=== PATIENT | female | born 1930 | race Caucasian/White ===

== ENCOUNTER 2016-03-06 16:54 | Inpatient (IN) ==
[2016-03-06] MEDS ORDERED: PANTOPRAZOLE 40 MG VIAL IV STA (19:23)
[2016-03-06] MEDS ORDERED: SODIUM CHLORIDE 0.9% 500 ML IV STA (19:23)
[2016-03-06] MEDS ORDERED: ALUM/MAG/SIMETH/LIDO VISC 1:1 30 ML BOTTLE PO STA (19:23)
[2016-03-06 19:32] LABS: Basophils # 0.1 10*3/uL (0.0-0.2); Basophils % 0.4 % (0.0-0.8); Eosinophils # 0.1 10*3/uL (0.0-0.87); Eosinophils % 0.8 % (0.00-10.9); Hematocrit 43.4 VOL% (35.7-47.0); Hemoglobin 13.7 GM/DL (12.0-16.0); Immature Granulocytes % 0.5 %; Immature Granulocytes Absolute 0.07 #; Lymphocytes # 2.7 10*3/uL (1.4-4.0); Mean Corpuscular HGB Conc 31.6 GM/DL (32-36); Mean Corpuscular Hemoglobin 27 PG (27-34); Mean Corpuscular Volume 86.8 FL (87-102); Mean Platelet Volume 10.1 FL (9.6-12.0); Monocytes # 0.9 10*3/uL (0.11-0.8); Monocytes % 6.1 % (1.7-12.7); Neutrophils # 10.4 10*3/uL (1.4-7.4); Neutrophils % 73.2 % (38.7-73.9); Platelet Count 198 10*3/uL (130-400); White Blood Count 14.2 10*3/uL (4.5-13.71)
[2016-03-06] MEDS ORDERED: ALUM/MAG/SIMETH/LIDO VISC 1:1 30 ML BOTTLE PO ONE (19:37)
[2016-03-06] MEDS ORDERED: PANTOPRAZOLE 40 MG VIAL IV ONE (19:37)
--- NOTE | 2016-03-06 19:45 | Emergency Department Note ---
Arrival - Arrival Chief Complaint: Abdominal / Flank Pain Stated Complaint: CHEST PAIN/BOTH SIDES ED Nursing Triage Note: PT C/O EPIGASTRIC PAIN THAT RADIATES ACROSS HER ABD AND BACK, ONSET 1030 THIS AM. DENIES N/V. DESCRIBES PAIN "JUST THERE AND CONSTANT " Mode of Arrival: Wheelchair Limitations: No Limitations Source: Patient Time Seen by Provider: 03/06/16 19:16 - History of Present Illness HPI Narrative: The patient complains of abdominal pain which started this morning. She cannot really describe the quality. She states that the location initially was epigastric, left upper quadrant and right upper quadrant, however, it is now spread over her entire abdomen and also radiates to the back. She describes it as constant and notes no exacerbating or relieving factors. She has had no nausea, vomiting or diarrhea. She has not had similar symptoms in the past. She does have a history of GERD and frequent urinary tract infections. Her last bowel movement was last night and all of her bowel movements have been normal. She denies any fever, cough or other recent illness. Allergies/Adverse Reactions: Allergies Allergy/AdvReac Type Severity Reaction Status Date / Time codeine Allergy ITCHING Verified 03/06/16 17:12 Sulfa (Sulfonamide Allergy Unknown/Unable Verified 03/06/16 17:12 Antibiotics) to obtain Home Medications: Home Medications Medication Instructions Recorded Confirmed Type Amitriptyline [Elavil] 50 mg PO BEDTIME 03/06/16 History Amoxicillin Cap/Tab 500 mg PO TID 03/06/16 History Baclofen [Baclofen] 10 mg PO BEDTIME 03/06/16 History Gabapentin Cap/Tab [Neurontin 100 mg PO BID 03/06/16 History Cap/Tab] Lisinopril [Lisinopril] 5 mg PO DAILY 03/06/16 History Omeprazole [Omeprazole] 20 mg PO BID 03/06/16 History Oxycodone HCl [Oxycodone HCl] 10 mg PO Q6-8H 03/06/16 History Sertraline HCl [Sertraline HCl] 100 mg PO DAILY 03/06/16 History Review of System - Review of System 12 point system: reviewed and no additional remarkable complaints except as stated - Review of System Constitutional: Absent: fever Head/Ears/Nose/Throat: Absent: nasal drainage Respiratory: Absent: cough Cardiovascular: Absent: chest pain Gastrointestinal: Present: abdominal pain. Absent: nausea, vomiting, diarrhea, constipation, hematemesis, melena, hematochezia Genitourinary female: Absent: dysuria, frequency Medical,Surgical,& Family Hx - Medical History Cardio: History of: Hypertension Psychological: History of: Anxiety Disorders Genitourinary: History of: Recurring Urinary Tract Infections Musculoskeletal: History of: Musculoskeletal Problems (ARTHRITIS) - Surgical History Abdominal Surgeries: Surgical HX of: Abdominal Surgery (bladder tack), Cholecystectomy Reproductive Surgeries: Surgical HX of;: Hysterectomy - Family History Family History: noncontributory - Social History Smoking Status: Never smoker Frequency of Alcohol Use: None Type of Drug Use: None Exam Physical Examination: GENERAL: Alert. No acute distress. HEENT: Normocephalic and atraumatic. There is no nasal drainage. No pharyngeal erythema or exudate. NECK: Normal inspection. Supple. No lymphadenopathy or meningismus. LUNGS: No respiratory distress. Clear to auscultation bilaterally, no wheezes, rales or rhonchi. HEART: Regular rate and rhythm. ABDOMEN: Soft, nondistended with normal bowel sounds. Mild diffuse tenderness without guarding or rebound. BACK: Normal inspection. SKIN: Color normal. Warm and dry. EXTREMITIES: Nontender. Normal range of motion. No pedal edema. NEUROLOGICAL/PSYCHIATRIC: Alert and oriented 3 with normal mood and affect. Cranial nerves normal. No motor or sensory deficit. Vital Signs: Vital Signs Temperature 98.4 F 03/06/16 17:06 Pulse Rate 85 03/06/16 17:06 Respiratory Rate 16 03/06/16 17:06 Blood Pressure 130/73 03/06/16 17:06 O2 Sat by Pulse Oximetry 94 L 03/06/16 17:06 Course - Reevaluation(s) Reevaluation #1: Patient's vitals have remained stable here in the ER. She continues to have some abdominal pain despite morphine and Dilaudid. I will give her some more pain medication. Given her age and the level/progression of her pain, I think she warrants admission for observation. I have discussed the patient with Dr. Mercado and will admit to him for IV antibiotics, fluids and pain control. Time: 23:26 Results - Labs CBC & BMP: 03/06/16 19:00 03/06/16 19:00 Lab Results: I have reviewed the patients labs - Impressions CT of the abdomen shows a 5.35 centimeter collection of fluid, Advair, debris and contrast narrative the duodenum. This could represent duodenal diverticulum versus an abscess. Disposition Clinical Impression: Abdominal pain Case discussed with: patient, patient's family Disposition: Still a Patient Condition: Stable Time of Disposition: 23:26
[2016-03-06 19:47] LABS: Alanine Aminotransferase 17 U/L (13-56); Albumin 3.2 G/DL (3.4-5.0); Alkaline Phosphatase 91 U/L (45-117); Amylase 17 U/L (25-115); Aspartate Amino Transferase 19 U/L (0-37); Bilirubin,Total < 0.39 MG/DL (0.2-1.0); Blood Urea Nitrogen 11 MG/DL (7-18); Calcium 8.4 MG/DL (8.5-10.1); Glucose 137 MG/DL (74-106); Osmolality,Calculated 281.3 MOS/KG (273-304); Potassium 4.2 MMOL/L (3.5-5.1); Sodium 141 MMOL/L (136-145); Total Protein 6.9 G/DL (6.4-8.3)
--- NOTE | 2016-03-06 19:50 | XRay Report ---
Exam: XR abdomen 1V Date: 03/06/2016 7:24 PM Indication: Abdominal pain Comparison: None Technical:Supine abdomen Findings: Mid abdominal surgical clips are present and previous cholecystectomy clips are present. Vascular plaque present in the aorta. Large amount stool scattered within the colon. The liver spleen and renal shadows are obscured prior vertebral plasty at L3. No evidence of pneumoperitoneum on the supine image. Impression: 1. Previous midabdominal surgical changes 2. Prior vertebroplasty 3. Constipation 4. 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 Modesto Chaudhary
[2016-03-06 19:56] LABS: Amorphous Crystals,Urine Occasional /HPF (Few); Apearance,Urine CLOUDY (Clear); Bilirubin,Urine Negative (Negative); Blood, Urine Negative (Negative); Glucose,Urine (UA) Negative (Negative); Ketones,Urine Negative (Negative); Mucus,Urine Occasional /LPF (Occasional); Nitrite,Urine Negative (Negative); Protein,Urine 30 MG/DL; RBC,Urine 1 /HPF (0-4); Squamous Epithelial Cell,Urine Occasional /HPF (0-10); Urine Color Yellow (Yellow); Urine Specific Gravity 1.018 (1.001-1.035); Urine Urobilinogen < 2.0 EU/DL (0.2-1.0); WBC,Urine 10 /HPF (0-6)
[2016-03-06] MEDS ORDERED: ONDANSETRON 4 MG/2 ML VIAL ONE (20:15)
[2016-03-06] MEDS ORDERED: MORPHINE 2 MG/1 ML SYRINGE ONE ×2 (20:16→20:58)
[2016-03-06] MEDS ORDERED: MORPHINE 2 MG/1 ML SYRINGE IV STA ×2 (20:20→20:55)
[2016-03-06] MEDS ORDERED: ONDANSETRON 4 MG/2 ML VIAL IV STA (20:20)
[2016-03-06] MEDS ORDERED: HYDROmorphone 2 MG/1 ML VIAL ONE (21:29)
[2016-03-06] MEDS ORDERED: HYDROmorphone 2 MG/1 ML VIAL IV STA ×2 (21:30→23:27)
--- NOTE | 2016-03-06 22:44 | CT Report ---
Exam: CT abdomen pelvis w con Date: 03/06/2016 8:27 PM Comparison: 08/20/2015 Indication: Abdominal pain Total DLP: 858.7 mGy*cm Technical: Oral contrast was administered. Images were obtained from the lung bases to the iliac crest continuation through the pelvis with 100 cc of Omnipaque 350 with axial sagittal coronal imaging available for review. Dose reduction was performed with decreasing kv and mA and automated exposure Findings: Lung bases:No obvious infiltrate or effusion present. Liver and Spleen: On fat infiltration of the liver is present. The hepatic and portal veins are patent. The spleen is unremarkable. Gallbladder and Pancreas: Previous cholecystectomy clips suspected. The pancreas is mostly atrophic Adrenals: Unremarkable Kidneys: Cystic changes are present on the kidneys bilaterally. Normal excretion present. Stomach:Distended with contrast and air fluid and debris small filling defect in the posterior medial stomach Retroperitoneum: No enlarged lymph nodes. Aorta and IVC: Vascular plaque in the aorta iliac vessels. IVC is patent. 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 Bowel and Mesentery: Large amount of stool and debris present in the colon. Adjacent to the third and fourth form of the duodenum there is a collection measuring 5.5 cm containing air fluid and debris and what appears be some minimal contrast measuring up to 2.9 cm in height. Anterior posteriorly this area measures approximately 3.65 cm. Diverticulosis change present in the sigmoid colon and descending colonic segment. Injection granulomas present gluteal regions. Pelvis: Bladder: Incompletely distended with contrast on delayed images. Fluid: No free fluid identified. Lymph nodes: No enlarged lymph nodes.15.8 mm subcutaneous nodule in the left the inguinal region Pelvic organs: Surgically absent uterus and ovaries Osseous structures: Previous vertebral plasty suspected at L3 with mild levoscoliotic curve in the lumbosacral spine. Old compression deformity at T12 Impression: 1. Diverticulosis without obvious diverticulitis 2. Small collection with associated with the duodenum that probably represents a duodenal diverticulum measuring up up to 5.35 cm containing air fluid and contrast debris. Small abscess collection cannot be totally excluded 3. Fatty infiltration of the pancreas 4. Previous vertebral plasty and compression deformities in the thoracic lumbar spine 5. Prior cholecystectomy and hysterectomy. PROCEDURE INTERPRETED AT [facility] DEPARTMENT OF RADIOLOGY Final Report Signed by: Dr. Modesto Chaudhary
--- NOTE | 2016-03-07 00:22 | General Surg History&Physical ---
Assessment and Plan - Time spent with patient Time spent with patient: Greater than 30 minutes (1) Abdominal pain Status: Acute Assessment and plan: There appears to be an inflammatory appearing mass at the level of the fourth portion of the duodenum probably representing about diverticulum of the duodenum. This does not appear to be perforated freely but there is scattered gas and debris within it. The pancreas adjacent to this is largely absent. I think that intervention on this surgically would be extremely high risk in this elderly frail patient and we will try to manage this conservatively since she appears to be stable at this time. We will start her on IV antibiotics. Current Visit: Yes Qualifiers: Abdominal location: right upper quadrant Qualified Code(s): R10.11 - Right upper quadrant pain (2) UTI (urinary tract infection) Status: Acute Assessment and plan: She describes urinary symptoms with dysuria and this is been a frequent recurrent problem for her. Her urinalysis has white cells in the urine and we will check a urine culture. She will be on IV antibiotics. Current Visit: Yes Qualifiers: Urinary tract infection type: acute cystitis Hematuria presence: without hematuria Qualified Code(s): N30.00 - Acute cystitis without hematuria History of Present Illness Chief complaint: abdominal pain History of present illness: Ms. Rose is a 86 year old female Who over the course of the day is had a gradual onset of epigastric and right upper quadrant abdominal pain radiating to her back. Pain is constant and moderate in severity. He feels better if she lies still hurts more if she moves. She feels better if she lays on her side. She has never had this pain before. She has not had nausea or vomiting. She has not had fever. Home Medications Medication Instructions Recorded Confirmed Type Amitriptyline [Elavil] 50 mg PO BEDTIME 03/06/16 History Amoxicillin Cap/Tab 500 mg PO TID 03/06/16 History Baclofen [Baclofen] 10 mg PO BEDTIME 03/06/16 History Gabapentin Cap/Tab [Neurontin 100 mg PO BID 03/06/16 History Cap/Tab] Lisinopril [Lisinopril] 5 mg PO DAILY 03/06/16 History Omeprazole [Omeprazole] 20 mg PO BID 03/06/16 History Oxycodone HCl [Oxycodone HCl] 10 mg PO Q6-8H 03/06/16 History Sertraline HCl [Sertraline HCl] 100 mg PO DAILY 03/06/16 History Allergies Allergy/AdvReac Type Severity Reaction Status Date / Time codeine Allergy ITCHING Verified 03/06/16 17:12 Sulfa (Sulfonamide Allergy Unknown/Unable Verified 03/06/16 17:12 Antibiotics) to obtain Medical,Surgical,& Family Hx - Medical History Cardio: History of: Hypertension Psychological: History of: Anxiety Disorders Genitourinary: History of: Recurring Urinary Tract Infections Musculoskeletal: History of: Musculoskeletal Problems (ARTHRITIS) - Surgical History Abdominal Surgeries: Surgical HX of: Abdominal Surgery (bladder tack), Cholecystectomy Reproductive Surgeries: Surgical HX of;: Hysterectomy - Family History Family History: noncontributory - Social History Smoking Status: Never smoker Frequency of Alcohol Use: None Type of Drug Use: None Exam - Constitutional General appearance: no acute distress - Head Head exam: Present: normocephalic - Eye Eye exam: Absent: scleral icterus - ENT Mouth exam: Present: normal voice - Neck Neck exam: Present: trachea midline. Absent: tenderness - Respiratory Respiratory exam: Present: clear to auscultation bilaterally. Absent: accessory muscle use - Cardiovascular Cardiovascular exam: Present: RRR - GI/Abdominal GI/Abdominal exam: Present: normal bowel sounds. Absent: distended, guarding, mass, Espinoza's sign, tenderness, rebound - Extremities Exam Extremities exam: Absent: edema - Back Exam Back exam: Present: normal inspection. Absent: CVA tenderness (L), CVA tenderness (R) - Neurological Exam Neurological exam: Present: alert, oriented X3. Absent: motor sensory deficit Speech: Present: normal - Skin Skin exam: Present: normal color - Constitutional Constitutional: Absent: anorexia, chills, fever(s), weight loss - EENT Nose, mouth and throat: Absent: dysphagia, hoarseness - Cardiovascular Cardiovascular: Absent: chest pain at rest, chest pain with activity, dyspnea, dyspnea on exertion, syncope - Respiratory Respiratory: Absent: cough, dyspnea, hemoptysis, dyspnea on exertion - Gastrointestinal Gastrointestinal: Present: abdominal pain, dyspepsia, heartburn. Absent: bloating, coffee ground emesis, constipation, hematemesis, hematochezia, nausea , vomiting, jaundice - Genitourinary Genitourinary: Present: dysuria. Absent: flank pain, hematuria - Musculoskeletal Musculoskeletal: Absent: back pain - Neurological Neurological: Absent: focal weakness, syncope - Endocrine Endocrine: Absent: polyuria Hematologic/Lymphatic: Absent: easy bleeding, easy bruising Results - Labs CBC & BMP: 03/06/16 19:00 03/06/16 19:00 Lab Results: I have reviewed the past 24 hour labs - Diagnostic Findings Procedure: CT Abdomen and Pelvis: image reviewed by me, CT - chest: image reviewed by me
[2016-03-07] MEDS: cefOXitin 1,000 MG in SODIUM CHLORIDE 0.9% 100 ML IV SCH ×2 (00:47→01:38)
[2016-03-07] MEDS: HYDROmorphone 2 MG/1 ML VIAL IV PRN ×2 (01:48→12:30)
[2016-03-07] MEDS: DEXTROSE 5% NACL 0.45% 1,000 ML IV SCH ×4 (01:51→23:15)
[2016-03-07] MEDS: PIPERACILLIN/TAZOBACTAM 3,375 MG in SODIUM CHLORIDE 0.9% 100 ML IV SCH ×3 (03:02→18:23)
--- NOTE | 2016-03-07 06:15 | EKG Report ---
Stationary ECG Study [facility] ER Test Date: 03/06/2016 5:15:50 PM Pat Name: ANKITA IBARRA Department: Room: 345 Gender: F Consumer Services Consultant: Shalini Estes : 1930 Requested by: Modesto German Order Number: [id number] Reading MD: VAIBHAV GOLDMAN Intervals [place] Rate: 84 P: 66 [place]: 168 QRS: -48 QRSD: 96 T: 63 QT: 349 QTc: 390 Interpretive Statements SINUS RHYTHM LEFT ANTERIOR FASCICULAR BLOCK SEPTAL INFARCT, AGE UNDETERMINED Electronically Signed On 03-07-16 14:16:00 DIRECTOR IT PROJECT by VAIBHAV GOLDMAN [email or web address]
--- NOTE | 2016-03-07 09:18 | Hospitalist Consult Note ---
Addendum entered and electronically signed by Elizabeth Guevara NP 03/07/16 09: 59: Pt did tell me that she drinks Baking Soda in milk at least once a day, sometimes more, for reflux. This may or may not be a factor in her current problem. Original Note: Assessment and Plan (1) Abdominal pain Status: Acute Assessment and plan: being followed and managed by Dr. Jess BARNES Current Visit: Yes Qualifiers: Abdominal location: right upper quadrant Qualified Code(s): R10.11 - Right upper quadrant pain (2) UTI (urinary tract infection) Status: Acute Assessment and plan: prelim cultures showing Gram- rods, currently on IV Zosyn hx of recurrent UTI asymptomatic at present BP stable, no changes to be made further plan and addendum to follow per Dr. Mccloud Current Visit: Yes Qualifiers: Urinary tract infection type: acute cystitis Hematuria presence: without hematuria Qualified Code(s): N30.00 - Acute cystitis without hematuria History of Present Illness - Data of Consult Patient: new to practice Consult date: 03/07/16 Requesting Physician: Luis Manuel Mercaod III. - Consult Narrative Reason for consult: medical management History of present illness: Ms. Rose is a 86 year old female who was admitted overnight for abdominal pain and UTI. She was admitted to Dr. Jess BARNES, he is managing the acute changes in her abdomen. She is also noted to have a UTI, preliminary cultures show growth of gram negative rods, she is currently being treated with IV Zosyn. She is febrile this morning with noted elevated WBC. Her family member states that she has chronic UTI, is being treated with Amoxicillin PO at home medications by Dr. Gannon. She tells me that her abdominal pain started very suddenly. She does seem distended this morning, tender on exam. She denies vomiting or diarrhea. She is NPO, receiving IV NS. BP is stable. She is not a DM. PMH significant for recurrent UTI and HTN. She does not smoke or drink. CC: Luis Manuel Mercado III., - Home Medications and Allergies Home Medications: Home Medications Medication Instructions Recorded Confirmed Type Amitriptyline [Elavil] 50 mg PO BEDTIME 03/06/16 03/07/16 History Amoxicillin Cap/Tab 500 mg PO TID 03/06/16 03/07/16 History Baclofen [Baclofen] 10 mg PO BEDTIME 03/06/16 03/07/16 History Gabapentin Cap/Tab [Neurontin 100 mg PO BID 03/06/16 03/07/16 History Cap/Tab] Lisinopril [Lisinopril] 5 mg PO DAILY 03/06/16 03/07/16 History Omeprazole [Omeprazole] 20 mg PO BID 03/06/16 03/07/16 History Oxycodone HCl [Oxycodone HCl] 10 mg PO Q6-8H 03/06/16 03/07/16 History Sertraline HCl [Sertraline HCl] 100 mg PO DAILY 03/06/16 03/07/16 History Aspirin [Ecotrin] 1 tablet PO DAILY 03/07/16 03/07/16 History Bisacodyl Tab [Dulcolax Tab] 5 mg PO DAILY PRN 03/07/16 03/07/16 History Calcium Carbonate/Vitamin D3 600 mg PO DAILY 03/07/16 03/07/16 History [Calcium 600 + Vit D Tablet] Cinnamon Bark [Cinnamon] 2 capsule PO DAILY 03/07/16 03/07/16 History Gelatin 1,200 mg PO DAILY 03/07/16 03/07/16 History Glucosamine/Chondroitin/Vit D3 800 unit DAILY 03/07/16 03/07/16 History [Auajdkgz-Etmtel-Kou D3 Tab] Multivitamin (Centrum) [Centrum 1 mg PO DAILY 03/07/16 03/07/16 History Tab] Om3/Dha/Epa/Cod Liver Oil/A/D3 1 capsule PO DAILY 03/07/16 03/07/16 History [Cod Liver Oil Softgel] Phenazopyridine HCl [Azo Urinary 1 tablet PO DAILY 03/07/16 03/07/16 History Pain Relief] Saccharomyces Boulardii [Probiotic] 1 capsule PO DAILY 03/07/16 03/07/16 History Vitamin E 400 units PO BEDTIME 03/07/16 03/07/16 History Allergies/Adverse Reactions: Allergies Allergy/AdvReac Type Severity Reaction Status Date / Time codeine Allergy ITCHING Verified 03/06/16 17:12 Sulfa (Sulfonamide Allergy Unknown/Unable Verified 03/06/16 17:12 Antibiotics) to obtain Medical,Surgical,& Family Hx - Medical History Cardio: History of: Hypertension Psychological: History of: Anxiety Disorders Genitourinary: History of: Recurring Urinary Tract Infections Musculoskeletal: History of: Musculoskeletal Problems (ARTHRITIS) No history of: Amputation - Surgical History Thoracic Surgeries: Patient denies;: Organ Transplant Abdominal Surgeries: Surgical HX of: Abdominal Surgery, Cholecystectomy Reproductive Surgeries: Surgical HX of;: Genitourinary Surgery (bladder tack), Hysterectomy Orthopedic Surgeries: Patient denies;: Implanted Devices, Orthopedic Surgery, Spinal Surgery, Total Hip Replacement, Total Knee Replacement - Family History Family History: Reports;: Family Heart Disease, Family Hypertension Denies;: Family Anesthesia Reaction, Family Cancer, Family Diabetes, Family Hematology, Family Psychiatric Problems, Family Stroke, Additional Family History - Social History Smoking Status: Never smoker Frequency of Alcohol Use: None Type of Drug Use: None 12 point system: reviewed and no additional remarkable complaints except as stated Exam - Constitutional Vitals: Period Temp Pulse Resp BP Sys/[place]mond Pulse Ox Last 24 Hr 99.2 F-100.5 F 89-100 16-20 108-162/69-93 90-97 General appearance: no acute distress - Head Head exam: Present: normal inspection, normocephalic - Eye Eye exam: Present: EOMI. Absent: scleral icterus Pupils: Present: KAYLYN, normal accommodation - ENT ENT exam: Present: normal exam, normal oropharynx - Neck Neck exam: Present: normal inspection. Absent: lymphadenopathy - Respiratory Respiratory exam: Present: clear to auscultation bilaterally. Absent: wheezes - Cardiovascular Cardiovascular exam: Present: regular rate and rhythm. Absent: tachycardia - GI/Abdominal GI/Abdominal exam: Present: normal bowel sounds, distended (moderate), tenderness (generalized), soft - Extremities Exam Extremities exam: Present: normal inspection, full ROM. Absent: edema - Back Exam Back exam: Present: normal inspection. Absent: muscle spasm - Neurological Exam Neurological exam: Present: alert, oriented X3 - Psychiatric Psychiatric exam: Present: normal affect, normal mood - Skin Skin exam: Present: normal color, warm, dry Results - Labs CBC & BMP: 03/06/16 19:00 03/06/16 19:00 Lab Results: I have reviewed the past 24 hour labs
[2016-03-07] MEDS ORDERED: CALCIUM (CARBONATE)/VITAMIN D 600 MG-400 UNIT TABLET PO SCH (11:30)
--- NOTE | 2016-03-07 11:55 | General Surgery Progress Note ---
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 This does not appear to be perforated freely but there is scattered gas and debris within it. The pancreas adjacent to this is largely absent. I think that intervention on this surgically would be extremely high risk in this elderly frail patient and we will try to manage this conservatively since she appears to be stable at this time. We will start her on IV antibiotics. 03/07: She feels better this morning. 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 She certainly does not have findings consistent with peritonitis. I think that we need to continue IV antibiotics and IV fluids and close observation. We'll consult Hospital medicine to help with her medical problems. She is a poor surgical candidate and hopefully we can avoid surgical intervention. Current Visit: Yes Qualifiers: Abdominal location: right upper quadrant Qualified Code(s): R10.11 - Right upper quadrant pain (2) UTI (urinary tract infection) Status: Acute Assessment and plan: She describes urinary symptoms with dysuria and this is been a frequent recurrent problem for her. Her urinalysis has white cells in the urine and we will check a urine culture. She will be on IV antibiotics. Current Visit: Yes Qualifiers: Urinary tract infection type: acute cystitis Hematuria presence: without hematuria Qualified Code(s): N30.00 - Acute cystitis without hematuria Subjective Patient reports: Present: pain is less. Absent: nausea, vomiting, shortness of breath, fever Exam - Constitutional Vitals: Period Temp Pulse Resp BP Sys/Redmond Pulse Ox Last 24 Hr 99.2 F-100.5 F 89-100 16-20 108-162/56-93 90-97 General appearance: no acute distress - Head Head exam: Present: normocephalic - Eye Eye exam: Absent: scleral icterus - Respiratory Respiratory exam: Absent: accessory muscle use - GI/Abdominal GI/Abdominal exam: Present: soft. Absent: distended, mass, tenderness Results - Labs CBC & BMP: 03/06/16 19:00 03/06/16 19:00 Lab Results: I have reviewed the past 24 hour labs
[2016-03-07] MEDS: GABAPENTIN 100 MG CAPSULE PO SCH ×2 (12:31→21:02)
[2016-03-07] MEDS: PHENAZOPYRIDINE 95 MG TABLET PO SCH (12:31)
[2016-03-07] MEDS: LISINOPRIL 5 MG TABLET PO SCH (12:31)
[2016-03-07] MEDS: PANTOPRAZOLE 40 MG TABLET PO SCH (12:31)
[2016-03-07] MEDS: ASPIRIN EC 81 MG TABLET PO SCH (12:32)
[2016-03-07] MEDS: BACLOFEN 10 MG TABLET PO SCH (21:02)
[2016-03-07] MEDS: AMITRIPTYLINE 50 MG TABLET PO SCH (21:02)
[2016-03-08] MEDS: DEXTROSE 5% NACL 0.45% 1,000 ML IV SCH ×3 (02:15→18:07)
[2016-03-08] MEDS: PIPERACILLIN/TAZOBACTAM 3,375 MG in SODIUM CHLORIDE 0.9% 100 ML IV SCH ×3 (02:16→18:06)
[2016-03-08 03:38] LABS: Basophils # 0.1 10*3/uL (0.0-0.2); Basophils % 0.3 % (0.0-0.8); Eosinophils # 0.2 10*3/uL (0.0-0.87); Eosinophils % 0.7 % (0.00-10.9); Hematocrit 38.5 VOL% (35.7-47.0); Immature Granulocytes % 0.7 %; Immature Granulocytes Absolute 0.15 #; Lymphocytes # 2.8 10*3/uL (1.4-4.0); Lymphocytes % 13.5 % (21.3-54.2); Mean Corpuscular HGB Conc 31.2 GM/DL (32-36); Mean Corpuscular Hemoglobin 27 PG (27-34); Mean Corpuscular Volume 87.9 FL (87-102); Mean Platelet Volume 10.2 FL (9.6-12.0); Monocytes # 1.2 10*3/uL (0.11-0.8); Monocytes % 5.8 % (1.7-12.7); Neutrophils # 16.4 10*3/uL (1.4-7.4); Platelet Count 171 10*3/uL (130-400); Red Blood Count 4.38 10*6/uL (3.8-5.5); Red Cell Distribution Width 15.4 % (9.3-17.3); White Blood Count 20.7 10*3/uL (4.5-13.71)
[2016-03-08 04:08] LABS: Calcium 7.6 MG/DL (8.5-10.1); Potassium 3.6 MMOL/L (3.5-5.1)
[2016-03-08 06:32] LABS: Platelet Estimate Normal
--- NOTE | 2016-03-08 09:37 | General Surgery Progress Note ---
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 This does not appear to be perforated freely but there is scattered gas and debris within it. The pancreas adjacent to this is largely absent. I think that intervention on this surgically would be extremely high risk in this elderly frail patient and we will try to manage this conservatively since she appears to be stable at this time. We will start her on IV antibiotics. 03/07: She feels better this morning. 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 She certainly does not have findings consistent with peritonitis. I think that we need to continue IV antibiotics and IV fluids and close observation. We'll consult Hospital medicine to help with her medical problems. She is a poor surgical candidate and hopefully we can avoid surgical intervention. 03/08: She has less abdominal pain and feels and looks better. She is afebrile with stable vital signs. She still has an elevated white blood cell count. Her abdomen is really nontender at this point and it appears to be responding clinically to IV antibiotics. She would be a very poor operative risk for operative intervention in this location. We will continue with medical treatment. Current Visit: Yes Qualifiers: Abdominal location: right upper quadrant Qualified Code(s): R10.11 - Right upper quadrant pain (2) UTI (urinary tract infection) Status: Acute Assessment and plan: She describes urinary symptoms with dysuria and this is been a frequent recurrent problem for her. Her urinalysis has white cells in the urine and we will check a urine culture. She will be on IV antibiotics. Current Visit: Yes Qualifiers: Urinary tract infection type: acute cystitis Hematuria presence: without hematuria Qualified Code(s): N30.00 - Acute cystitis without hematuria Subjective Patient reports: Present: feels better, pain is less, tolerating liquids well. Absent: nausea, vomiting, fever Exam - Constitutional Vitals: Period Temp Pulse Resp BP Sys/Redmond Pulse Ox Last 24 Hr 97.9 F-100.3 F 82-93 16-20 95-115/47-57 83-95 General appearance: no acute distress - Eye Eye exam: Absent: scleral icterus - ENT Mouth exam: Present: normal voice - Respiratory Respiratory exam: Absent: accessory muscle use - GI/Abdominal GI/Abdominal exam: Present: soft. Absent: distended, tenderness Results - Labs CBC & BMP: 03/08/16 02:48 03/08/16 02:48 Lab Results: I have reviewed the past 24 hour labs
[2016-03-08] MEDS: CALCIUM (CARBONATE)/VITAMIN D 600 MG-400 UNIT TABLET PO SCH (10:05)
[2016-03-08] MEDS: PANTOPRAZOLE 40 MG TABLET PO SCH (10:05)
[2016-03-08] MEDS: LISINOPRIL 5 MG TABLET PO SCH (10:05)
[2016-03-08] MEDS: ASPIRIN EC 81 MG TABLET PO SCH (10:05)
[2016-03-08] MEDS: GABAPENTIN 100 MG CAPSULE PO SCH ×2 (10:06→20:59)
[2016-03-08] MEDS: PHENAZOPYRIDINE 95 MG TABLET PO SCH (10:50)
--- NOTE | 2016-03-08 15:42 | Hospitalist Progress Note ---
Assessment and Plan (1) Abdominal mass Status: Acute Current Visit: Yes (2) Abdominal pain Status: Acute Current Visit: Yes Qualifiers: Abdominal location: right upper quadrant Qualified Code(s): R10.11 - Right upper quadrant pain Hospitalist: Subjective Interval history: The patient is resting. She does have evidence of elevated WBC count. She has been started on antibiotics due to mass and inflammation noted in the colon. Continuing conservative management for this patient as she is a poor surgical risk. Exam - Constitutional Vitals: Period Temp Pulse Resp BP Sys/Redmond Pulse Ox Last 24 Hr 97.9 F-100.3 F 82-93 16-20 95-122/47-62 83-95 - ENT ENT exam: Present: normal exam - Respiratory Respiratory exam: Present: clear to auscultation bilaterally - Cardiovascular Cardiovascular exam: Present: regular rate and rhythm - GI/Abdominal GI/Abdominal exam: Present: normal bowel sounds - Extremities Exam Extremities exam: Present: full ROM - Neurological Exam Neurological exam: Present: alert, oriented X3 Results - Labs CBC & BMP: 03/08/16 02:48 03/08/16 02:48
[2016-03-08] MEDS: HYDROmorphone 2 MG/1 ML VIAL IV PRN ×2 (16:13→20:59)
[2016-03-08] MEDS: BACLOFEN 10 MG TABLET PO SCH (21:00)
[2016-03-08] MEDS: AMITRIPTYLINE 50 MG TABLET PO SCH (21:00)
[2016-03-09] MEDS: HYDROmorphone 2 MG/1 ML VIAL IV PRN ×3 (04:40→16:16)
[2016-03-09] MEDS: PIPERACILLIN/TAZOBACTAM 3,375 MG in SODIUM CHLORIDE 0.9% 100 ML IV SCH ×3 (04:41→18:28)
[2016-03-09] MEDS: DEXTROSE 5% NACL 0.45% 1,000 ML IV SCH (10:14)
[2016-03-09] MEDS: LISINOPRIL 5 MG TABLET PO SCH (10:14)
[2016-03-09] MEDS: PHENAZOPYRIDINE 95 MG TABLET PO SCH (10:14)
[2016-03-09] MEDS: PANTOPRAZOLE 40 MG TABLET PO SCH (10:15)
[2016-03-09] MEDS: ASPIRIN EC 81 MG TABLET PO SCH (10:15)
[2016-03-09] MEDS: CALCIUM (CARBONATE)/VITAMIN D 600 MG-400 UNIT TABLET PO SCH (10:15)
[2016-03-09] MEDS: GABAPENTIN 100 MG CAPSULE PO SCH ×2 (10:15→21:25)
[2016-03-09] MEDS: BENZONATATE 100 MG CAPSULE PO PRN (10:23)
--- NOTE | 2016-03-09 11:29 | Hospitalist Progress Note ---
Assessment and Plan (1) Abdominal mass Status: Acute Current Visit: Yes (2) Abdominal pain Status: Acute Current Visit: Yes Qualifiers: Abdominal location: right upper quadrant Qualified Code(s): R10.11 - Right upper quadrant pain Hospitalist: Subjective Interval history: The patient states she didn't have a restful night. Family members at the bedside states she has been coughing a lot. On exam she sounds clear. However we'll get a chest x-ray in a.m. Elevated white blood cell count noted. Continue IV fluids and antibiotics. Exam - Constitutional Vitals: Period Temp Pulse Resp BP Sys/Redmond Pulse Ox Last 24 Hr 98.5 F-99.9 F 85-92 16-20 89-133/47-82 91-95 General appearance: normal weight - Eye Pupils: Present: KAYLYN - Respiratory Respiratory exam: Present: clear to auscultation bilaterally - Cardiovascular Cardiovascular exam: Present: regular rate and rhythm - GI/Abdominal GI/Abdominal exam: Present: normal bowel sounds - Neurological Exam Neurological exam: Present: alert, oriented X3 Results - Labs CBC & BMP: 03/08/16 02:48 03/08/16 02:48
[2016-03-09] MEDS: AMITRIPTYLINE 50 MG TABLET PO SCH (21:25)
[2016-03-09] MEDS: BACLOFEN 20 MG TABLET PO SCH (21:33)
[2016-03-09] MEDS: BACLOFEN 10 MG TABLET PO SCH (21:44)
[2016-03-10] MEDS: PIPERACILLIN/TAZOBACTAM 3,375 MG in SODIUM CHLORIDE 0.9% 100 ML IV SCH ×3 (02:26→18:41)
[2016-03-10] MEDS: DEXTROSE 5% NACL 0.45% 1,000 ML IV SCH ×3 (02:27→12:15)
[2016-03-10 06:05] LABS: Basophils % 0.3 % (0.0-0.8); Eosinophils # 0.4 10*3/uL (0.0-0.87); Eosinophils % 2.6 % (0.00-10.9); Hematocrit 38.1 VOL% (35.7-47.0); Hemoglobin 11.8 GM/DL (12.0-16.0); Immature Granulocytes % 0.9 %; Immature Granulocytes Absolute 0.13 #; Lymphocytes # 2.1 10*3/uL (1.4-4.0); Lymphocytes % 15.1 % (21.3-54.2); Mean Corpuscular Hemoglobin 27 PG (27-34); Mean Corpuscular Volume 88.6 FL (87-102); Mean Platelet Volume 10.4 FL (9.6-12.0); Monocytes # 1.2 10*3/uL (0.11-0.8); Monocytes % 8.4 % (1.7-12.7); Neutrophils # 10.1 10*3/uL (1.4-7.4); Neutrophils % 72.7 % (38.7-73.9); Platelet Count 203 10*3/uL (130-400); White Blood Count 13.8 10*3/uL (4.5-13.71)
--- NOTE | 2016-03-10 08:02 | XRay Report ---
Referring Physician: Raheem Mccloud Jr Exam: XR chest 1V portable Date: March 10, 2016 at 5:28 AM Reason: Cough Comparison: None Findings: The cardiac silhouette is mildly enlarged, and the thoracic aorta is tortuous. The right hemidiaphragm is slightly elevated, and there are mild scattered opacities within both lungs. This could represent mild pulmonary edema, atelectasis, scarring and/or pneumonia. No pneumothorax is identified, but there may be minimal bilateral pleural fluid. There is multilevel degenerative change at the spine and degenerative change at both shoulders. However, no acute osseous process is seen. Impression: 1. Mild cardiomegaly. 2. There are mild scattered opacities within both lungs. This could represent mild pulmonary edema, atelectasis, scarring and/or pneumonia. There could also be minimal bilateral pleural fluid. PROCEDURE INTERPRETED AT [facility] DEPARTMENT OF RADIOLOGY Final Report Signed by: Dr. Lincoln Donahue
--- NOTE | 2016-03-10 08:18 | General Surgery Progress Note ---
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 This does not appear to be perforated freely but there is scattered gas and debris within it. The pancreas adjacent to this is largely absent. I think that intervention on this surgically would be extremely high risk in this elderly frail patient and we will try to manage this conservatively since she appears to be stable at this time. We will start her on IV antibiotics. 03/07: She feels better this morning. 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 She certainly does not have findings consistent with peritonitis. I think that we need to continue IV antibiotics and IV fluids and close observation. We'll consult Hospital medicine to help with her medical problems. She is a poor surgical candidate and hopefully we can avoid surgical intervention. 03/08: She has less abdominal pain and feels and looks better. She is afebrile with stable vital signs. She still has an elevated white blood cell count. Her abdomen is really nontender at this point and it appears to be responding clinically to IV antibiotics. She would be a very poor operative risk for operative intervention in this location. We will continue with medical treatment. 03/10 the abdominal pain is essentially resolved and I do not appreciate any mass effect or tenderness. She has had increased cough and has not had nausea or vomiting. I am continuing IV antibiotics. I'm going to check a follow-up CT scan see if the inflammatory process in her upper abdomen is resolved. Current Visit: Yes Qualifiers: Abdominal location: right upper quadrant Qualified Code(s): R10.11 - Right upper quadrant pain (2) UTI (urinary tract infection) Status: Acute Assessment and plan: She describes urinary symptoms with dysuria and this is been a frequent recurrent problem for her. Her urinalysis has white cells in the urine and we will check a urine culture. She will be on IV antibiotics. Current Visit: Yes Qualifiers: Urinary tract infection type: acute cystitis Hematuria presence: without hematuria Qualified Code(s): N30.00 - Acute cystitis without hematuria Subjective Patient reports: Present: feels better, pain is less, tolerating liquids well, other (complain of increasing cough). Absent: nausea, vomiting, shortness of breath, fever Exam - Constitutional Vitals: Period Temp Pulse Resp BP Sys/Redmond Pulse Ox Last 24 Hr 97.2 F-99.0 F 82-103 18-22 98-158/51-93 92-94 General appearance: no acute distress - Head Head exam: Present: normocephalic - Eye Eye exam: Absent: scleral icterus - Neck Neck exam: Present: trachea midline - Respiratory Respiratory exam: Absent: accessory muscle use - GI/Abdominal GI/Abdominal exam: Present: soft. Absent: distended, mass, tenderness, rebound Results - Labs CBC & BMP: 03/10/16 04:39 03/08/16 02:48 Lab Results: I have reviewed the past 24 hour labs - Diagnostic Findings Procedure: Chest x-ray: report reviewed by me
[2016-03-10 08:42] LABS: Osmolality,Calculated 285.8 MOS/KG (273-304); Potassium 3.8 MMOL/L (3.5-5.1)
[2016-03-10] MEDS: ASPIRIN EC 81 MG TABLET PO SCH (08:59)
[2016-03-10] MEDS: CALCIUM (CARBONATE)/VITAMIN D 600 MG-400 UNIT TABLET PO SCH (08:59)
[2016-03-10] MEDS: GABAPENTIN 100 MG CAPSULE PO SCH ×2 (09:00→22:27)
[2016-03-10] MEDS: LISINOPRIL 5 MG TABLET PO SCH (09:00)
[2016-03-10] MEDS: PANTOPRAZOLE 40 MG TABLET PO SCH (09:00)
[2016-03-10] MEDS: PHENAZOPYRIDINE 95 MG TABLET PO SCH (10:16)
[2016-03-10] MEDS: NYSTATIN POWDER 15 GM BOTTLE TOP SCH ×2 (12:15→20:41)
[2016-03-10] MEDS: HYDROmorphone 2 MG/1 ML VIAL IV PRN (12:31)
--- NOTE | 2016-03-10 14:16 | Hospitalist Progress Note ---
Assessment and Plan (1) Abdominal pain Status: Acute Current Visit: Yes Qualifiers: Abdominal location: right upper quadrant Qualified Code(s): R10.11 - Right upper quadrant pain (2) UTI (urinary tract infection) Status: Acute Current Visit: Yes Qualifiers: Urinary tract infection type: acute cystitis Hematuria presence: without hematuria Qualified Code(s): N30.00 - Acute cystitis without hematuria (3) Abdominal mass Status: Acute Assessment and plan: Patient's deemed not a surgical candidate. Best route will be treatment antibiotics. Patient symptomatically seems to improved. We'll repeat a chest x -ray in 48 hours. The read on the chest x-ray was very vague could include scarring pulmonary edema versus infiltrate. Zosyn metabolic she is currently on would treat a pneumonia. Continue to monitor patient will follow along with you. Current Visit: Yes Hospitalist: Subjective Interval history: patient reports feeling better. Patient thinks her cough is gotten better Exam - Constitutional Vitals: Period Temp Pulse Resp BP Sys/Redmond Pulse Ox Last 24 Hr 98.7 F-99.4 F 82-103 18-22 98-158/51-93 92-94 General appearance: normal weight - Head Head exam: Present: normal inspection - ENT ENT exam: Present: normal exam - Neck Neck exam: Present: normal inspection - Respiratory Respiratory exam: Present: clear to auscultation bilaterally - Cardiovascular Cardiovascular exam: Present: regular rate and rhythm - GI/Abdominal GI/Abdominal exam: Present: normal bowel sounds - Extremities Exam Extremities exam: Present: normal inspection - Back Exam Back exam: Present: normal inspection - Neurological Exam Neurological exam: Present: alert Results - Labs CBC & BMP: 03/10/16 04:39 03/10/16 Unknown
--- NOTE | 2016-03-10 17:53 | CT Report ---
CT abdomen pelvis w con Indication: Duodenal mass. CT ABDOMEN AND PELVIS WITH CONTRAST DLP: 932 mGy*cm Comparison: 03/06/16 Technique: Axial CT images of the abdomen and pelvis were obtained with IV contrast; Omnipaque 350, 100 cc. Oral contrast was administered. Abdomen: Patchy opacities both lung bases with tiny bilateral pleural effusions are present. Heart is somewhat enlarged and there is pulmonary vascular congestion as well. Right hemidiaphragm is elevated. Cholecystectomy clips are present. No focal liver lesion shown. Spleen, atrophied pancreas, adrenal glands are within normal limits. There are small hypodensities on both kidneys, largest on the left measuring 8 mm diameter, likely cysts. These are, however, too small to further characterize. Extending off the inferior aspect of the third segment of the duodenum is a heterogeneously enhancing 38 x 44 mm mass which centrally contains fluid density with some small bubbles of gas present. Fat planes around the lesion are hazy and indistinct and subcentimeter lymph nodes are present in the area. This appears distinctly separate from the uncinate process of the pancreas. The SMA is displaced anteriorly slightly. No bowel obstruction identified and no intraperitoneal free air is shown. Aorta is tortuous and calcified atheromatous disease. Scoliosis and degenerative changes lumbar spine noted. Pelvis: Appendix not identified. No right lower quadrant inflammation. Uterus is absent. Urinary bladder is distended. Rectosigmoid colon is grossly unremarkable by CT. Impression: 1. 38 x 44 mm heterogeneously enhancing mass that contains internal fluid density and tiny bubbles of air. Peripheral inflammation noted. Differential is cystic neoplasm versus contained duodenal ulcer. 2. Bibasilar pneumonia with small bilateral pleural effusions. 3. Mild cardiomegaly and pulmonary vascular congestion, evidence of CHF. 4. Small hypodensities on both kidneys, generally too small to characterize but likely cysts. 5. Calcified atheromatous disease and aortic tortuosity. Scoliosis with degenerative changes lumbar spine. 6. Urinary distention of the bladder. PROCEDURE INTERPRETED AT [facility] DEPARTMENT OF RADIOLOGY Final Report Signed by: Charles Corea M.D.
[2016-03-10] MEDS: BENZONATATE 100 MG CAPSULE PO PRN (20:41)
[2016-03-10] MEDS: BACLOFEN 20 MG TABLET PO SCH (20:41)
[2016-03-10] MEDS: AMITRIPTYLINE 50 MG TABLET PO SCH (20:42)
[2016-03-11] MEDS: PIPERACILLIN/TAZOBACTAM 3,375 MG in SODIUM CHLORIDE 0.9% 100 ML IV SCH ×3 (01:13→18:22)
[2016-03-11] MEDS: DEXTROSE 5% NACL 0.45% 1,000 ML IV SCH ×3 (01:13→12:39)
[2016-03-11] MEDS: BENZONATATE 100 MG CAPSULE PO PRN ×3 (05:16→19:54)
[2016-03-11 05:43] LABS: Basophils # 0.1 10*3/uL (0.0-0.2); Basophils % 0.5 % (0.0-0.8); Eosinophils # 0.3 10*3/uL (0.0-0.87); Eosinophils % 2.7 % (0.00-10.9); Hematocrit 38.7 VOL% (35.7-47.0); Immature Granulocytes % 1.8 %; Immature Granulocytes Absolute 0.19 #; Lymphocytes # 1.8 10*3/uL (1.4-4.0); Lymphocytes % 16.9 % (21.3-54.2); Mean Corpuscular Hemoglobin 27 PG (27-34); Mean Corpuscular Volume 87.4 FL (87-102); Mean Platelet Volume 10.9 FL (9.6-12.0); Monocytes % 9.5 % (1.7-12.7); Neutrophils # 7.4 10*3/uL (1.4-7.4); Neutrophils % 68.6 % (38.7-73.9); Platelet Count 197 T/CUMM (130-400); Red Blood Count 4.43 MC/CUMM (3.8-5.5); Red Cell Distribution Width 15.4 % (9.3-17.3); White Blood Count 10.8 T/CUMM (4-12)
[2016-03-11 06:05] LABS: Hypochromasia Slight; Platelet Estimate Normal
[2016-03-11 06:06] LABS: Burr Cells Slight; Ovalocytes Slight
[2016-03-11 06:09] LABS: Osmolality,Calculated 283.7 MOS/KG (273-304); Potassium 3.6 MMOL/L (3.5-5.1)
--- NOTE | 2016-03-11 08:17 | General Surgery Progress Note ---
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 This does not appear to be perforated freely but there is scattered gas and debris within it. The pancreas adjacent to this is largely absent. I think that intervention on this surgically would be extremely high risk in this elderly frail patient and we will try to manage this conservatively since she appears to be stable at this time. We will start her on IV antibiotics. 03/07: She feels better this morning. 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 She certainly does not have findings consistent with peritonitis. I think that we need to continue IV antibiotics and IV fluids and close observation. We'll consult Hospital medicine to help with her medical problems. She is a poor surgical candidate and hopefully we can avoid surgical intervention. 03/08: She has less abdominal pain and feels and looks better. She is afebrile with stable vital signs. She still has an elevated white blood cell count. Her abdomen is really nontender at this point and it appears to be responding clinically to IV antibiotics. She would be a very poor operative risk for operative intervention in this location. We will continue with medical treatment. 03/10 the abdominal pain is essentially resolved and I do not appreciate any mass effect or tenderness. She has had increased cough and has not had nausea or vomiting. I am continuing IV antibiotics. I'm going to check a follow-up CT scan see if the inflammatory process in her upper abdomen is resolved. 03/11: inflammatory process at 3rd portion duodenum still present but looks better. I suspect duodenal diverticulitis vs focally perforated ulcer. I would be afraid to do EGD. Would cont IV abx for now. WBC decreased. Current Visit: Yes Qualifiers: Abdominal location: right upper quadrant Qualified Code(s): R10.11 - Right upper quadrant pain (2) UTI (urinary tract infection) Status: Acute Assessment and plan: She describes urinary symptoms with dysuria and this is been a frequent recurrent problem for her. Her urinalysis has white cells in the urine and we will check a urine culture. She will be on IV antibiotics. Current Visit: Yes Qualifiers: Urinary tract infection type: acute cystitis Hematuria presence: without hematuria Qualified Code(s): N30.00 - Acute cystitis without hematuria Subjective Patient reports: Present: feels better, pain is less, tolerating liquids well, bowel movement. Absent: nausea, vomiting, shortness of breath, fever Exam - Constitutional Vitals: Period Temp Pulse Resp BP Sys/Redmond Pulse Ox Last 24 Hr 97.7 F-99.4 F 76-84 18-20 103-140/61-74 91-97 General appearance: no acute distress - Head Head exam: Present: normocephalic - Eye Eye exam: Absent: scleral icterus - ENT Mouth exam: Present: normal voice - Neck Neck exam: Present: trachea midline - Respiratory Respiratory exam: Absent: accessory muscle use - GI/Abdominal GI/Abdominal exam: Present: soft. Absent: distended, mass, tenderness, rebound - Neurological Exam Neurological exam: Present: alert, oriented X3 Speech: Present: normal Results - Labs CBC & BMP: 03/11/16 04:24 03/11/16 04:23 Lab Results: I have reviewed the past 24 hour labs - Diagnostic Findings Procedure: CT Abdomen and Pelvis: image reviewed by me, report reviewed by me
[2016-03-11] MEDS: PHENAZOPYRIDINE 95 MG TABLET PO SCH (09:56)
[2016-03-11] MEDS: GABAPENTIN 100 MG CAPSULE PO SCH ×2 (09:57→20:45)
[2016-03-11] MEDS: ASPIRIN EC 81 MG TABLET PO SCH (09:57)
[2016-03-11] MEDS: PANTOPRAZOLE 40 MG TABLET PO SCH (09:57)
[2016-03-11] MEDS: LISINOPRIL 5 MG TABLET PO SCH (09:57)
[2016-03-11] MEDS: NYSTATIN POWDER 15 GM BOTTLE TOP SCH ×2 (09:57→20:45)
[2016-03-11] MEDS: CALCIUM (CARBONATE)/VITAMIN D 600 MG-400 UNIT TABLET PO SCH (09:57)
--- NOTE | 2016-03-11 12:04 | Hospitalist Progress Note ---
Assessment and Plan (1) Abdominal pain Status: Acute Current Visit: Yes Qualifiers: Abdominal location: right upper quadrant Qualified Code(s): R10.11 - Right upper quadrant pain (2) UTI (urinary tract infection) Status: Acute Current Visit: Yes Qualifiers: Urinary tract infection type: acute cystitis Hematuria presence: without hematuria Qualified Code(s): N30.00 - Acute cystitis without hematuria (3) Abdominal mass Status: Acute Assessment and plan: Patient's deemed not a surgical candidate. Best route will be treatment antibiotics. Patient symptomatically seems to improved. We'll repeat a chest x -ray in 48 hours. The read on the chest x-ray was very vague could include scarring pulmonary edema versus infiltrate. Zosyn she is currently on would treat a pneumonia. Continue to monitor patient will follow along with you. 03/11/16 patient seems to be doing okay. She is having some complaints about nausea and diarrhea. Check her stool for culture. Recheck an x-ray in the morning to evaluate her pneumonia and scheduled breathing treatments when necessary Current Visit: Yes Hospitalist: Subjective Interval history: He has multiple complaints today particularly a cough and nausea and vomiting. She's also been having some diarrhea. I'm sure it's associated with her antibiotics We'll probably need to evaluate. Exam - Constitutional Vitals: Period Temp Pulse Resp BP Sys/Redmond Pulse Ox Last 24 Hr 97.7 F-99.4 F 76-84 18-20 103-140/61-74 91-97 General appearance: normal weight - Head Head exam: Present: normal inspection - ENT ENT exam: Present: normal exam - Neck Neck exam: Present: normal inspection - Respiratory Respiratory exam: Present: clear to auscultation bilaterally - Cardiovascular Cardiovascular exam: Present: regular rate and rhythm - GI/Abdominal GI/Abdominal exam: Present: normal bowel sounds - Extremities Exam Extremities exam: Present: normal inspection - Back Exam Back exam: Present: normal inspection - Neurological Exam Neurological exam: Present: alert Results - Labs CBC & BMP: 03/11/16 04:24 03/11/16 04:23
[2016-03-11] MEDS ORDERED: ALBUTEROL/IPRATROPIUM 3 ML NEB RESP TX PRN (12:05)
[2016-03-11] MEDS: HYDROmorphone 2 MG/1 ML VIAL IV PRN ×2 (12:18→20:45)
[2016-03-11] MEDS: BACLOFEN 20 MG TABLET PO SCH (20:45)
[2016-03-11] MEDS: AMITRIPTYLINE 50 MG TABLET PO SCH (20:45)
[2016-03-12] MEDS: PIPERACILLIN/TAZOBACTAM 3,375 MG in SODIUM CHLORIDE 0.9% 100 ML IV SCH ×3 (01:57→18:27)
[2016-03-12] MEDS: BENZONATATE 100 MG CAPSULE PO PRN ×3 (03:55→15:36)
--- NOTE | 2016-03-12 06:34 | XRay Report ---
Referring Physician: Charles Eaton Exam: XR chest 1V Date: March 12, 2016 at 5:48 AM Reason: Cough and shortness of breath Comparison: Chest one view portable March 10, 2016 Findings: The cardiac silhouette is again mildly enlarged, and the thoracic aorta is tortuous. There are scattered opacities within both lungs. This could represent pulmonary edema and/or pneumonia with atelectasis. No pneumothorax is identified, but there is minimal bilateral pleural fluid. The osseous structures appear stable. Surgical clips are seen at the right and mid abdomen. Impression: There are scattered opacities within both lungs. Overall, these opacities have increased and could represent pulmonary edema and/or pneumonia with atelectasis. There is also minimal bilateral pleural fluid. PROCEDURE INTERPRETED AT [facility] DEPARTMENT OF RADIOLOGY Final Report Signed by: Dr. Lincoln Donahue
[2016-03-12] MEDS: DEXTROSE 5% NACL 0.45% 1,000 ML IV SCH (06:46)
--- NOTE | 2016-03-12 07:36 | General Surgery Progress Note ---
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 This does not appear to be perforated freely but there is scattered gas and debris within it. The pancreas adjacent to this is largely absent. I think that intervention on this surgically would be extremely high risk in this elderly frail patient and we will try to manage this conservatively since she appears to be stable at this time. We will start her on IV antibiotics. 03/07: She feels better this morning. 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 She certainly does not have findings consistent with peritonitis. I think that we need to continue IV antibiotics and IV fluids and close observation. We'll consult Hospital medicine to help with her medical problems. She is a poor surgical candidate and hopefully we can avoid surgical intervention. 03/08: She has less abdominal pain and feels and looks better. She is afebrile with stable vital signs. She still has an elevated white blood cell count. Her abdomen is really nontender at this point and it appears to be responding clinically to IV antibiotics. She would be a very poor operative risk for operative intervention in this location. We will continue with medical treatment. 03/10 the abdominal pain is essentially resolved and I do not appreciate any mass effect or tenderness. She has had increased cough and has not had nausea or vomiting. I am continuing IV antibiotics. I'm going to check a follow-up CT scan see if the inflammatory process in her upper abdomen is resolved. 03/11: inflammatory process at 3rd portion duodenum still present but looks better. I suspect duodenal diverticulitis vs focally perforated ulcer. I would be afraid to do EGD. Would cont IV abx for now. WBC decreased. Current Visit: Yes Qualifiers: Abdominal location: right upper quadrant Qualified Code(s): R10.11 - Right upper quadrant pain (2) UTI (urinary tract infection) Status: Acute Assessment and plan: She describes urinary symptoms with dysuria and this is been a frequent recurrent problem for her. Her urinalysis has white cells in the urine and we will check a urine culture. She will be on IV antibiotics. Current Visit: Yes Qualifiers: Urinary tract infection type: acute cystitis Hematuria presence: without hematuria Qualified Code(s): N30.00 - Acute cystitis without hematuria (3) Duodenal diverticulum Status: Acute Assessment and plan: The patient's abdominal symptoms appear better and her diarrhea has subsided. I think this was most likely related to the contrast from her repeat CT scan. It appears that her processes probably an inflamed duodenal diverticulum which is responding to IV antibiotics. From an abdominal standpoint she is doing better and is tolerating by mouth diet and has minimal abdominal pain. Her main complaint is call and chest pain with deep breathing. I suspect that she may have some development of pneumonia. Current Visit: Yes Subjective Patient reports: Present: feels better, pain is less, tolerating a regular diet , bowel movement, shortness of breath. Absent: diarrhea, nausea, vomiting, fever Exam - Constitutional Vitals: Period Temp Pulse Resp BP Sys/Redmond Pulse Ox Last 24 Hr 98.7 F-99.4 F 78-91 17-18 131-168/70-99 90-94 General appearance: no acute distress - Head Head exam: Present: normocephalic - Eye Eye exam: Absent: scleral icterus - ENT Mouth exam: Present: normal voice - Neck Neck exam: Present: trachea midline - Respiratory Respiratory exam: Absent: accessory muscle use - GI/Abdominal GI/Abdominal exam: Present: soft. Absent: distended, tenderness, rebound - Neurological Exam Neurological exam: Present: alert, oriented X3. Absent: motor sensory deficit Results - Labs CBC & BMP: 03/11/16 04:24 03/11/16 04:23
[2016-03-12] MEDS: HYDROmorphone 2 MG/1 ML VIAL IV PRN (11:04)
[2016-03-12] MEDS: PANTOPRAZOLE 40 MG TABLET PO SCH (11:07)
[2016-03-12] MEDS: LISINOPRIL 5 MG TABLET PO SCH (11:07)
[2016-03-12] MEDS: PHENAZOPYRIDINE 95 MG TABLET PO SCH (11:07)
[2016-03-12] MEDS: CALCIUM (CARBONATE)/VITAMIN D 600 MG-400 UNIT TABLET PO SCH (11:07)
[2016-03-12] MEDS: ASPIRIN EC 81 MG TABLET PO SCH (11:07)
[2016-03-12] MEDS: GABAPENTIN 100 MG CAPSULE PO SCH ×2 (11:07→21:42)
[2016-03-12] MEDS: DESITIN 4OZ/NYSTATIN 15 GRAM MIXTURE PASTE TOP SCH ×2 (11:23→23:11)
[2016-03-12] MEDS: NYSTATIN POWDER 15 GM BOTTLE TOP SCH (11:25)
--- NOTE | 2016-03-12 15:49 | Hospitalist Progress Note ---
Assessment and Plan (1) Abdominal pain Status: Acute Current Visit: Yes Qualifiers: Abdominal location: right upper quadrant Qualified Code(s): R10.11 - Right upper quadrant pain (2) UTI (urinary tract infection) Status: Acute Current Visit: Yes Qualifiers: Urinary tract infection type: acute cystitis Hematuria presence: without hematuria Qualified Code(s): N30.00 - Acute cystitis without hematuria (3) Abdominal mass Status: Acute Assessment and plan: Patient's deemed not a surgical candidate. Best route will be treatment antibiotics. Patient symptomatically seems to improved. We'll repeat a chest x -ray in 48 hours. The read on the chest x-ray was very vague could include scarring pulmonary edema versus infiltrate. Zosyn she is currently on would treat a pneumonia. Continue to monitor patient will follow along with you. 03/11/16 patient seems to be doing okay. She is having some complaints about nausea and diarrhea. Check her stool for culture. Recheck an x-ray in the morning to evaluate her pneumonia and scheduled breathing treatments when necessary 03/12/16 patient continues to improve slightly. Her stool studies did not display any pathogens at this point. Her x-ray does show some patchy possible infiltrates. I will order some Tessalon Perles to see if that will help her. We need to get physical therapy and borderline patient's able to participate Current Visit: Yes Hospitalist: Subjective Interval history: Patient's complaining about problems with coughing. Says she's not really hungry at this time. But that her abdomen is feeling a little bit better Exam - Constitutional Vitals: Period Temp Pulse Resp BP Sys/Redmond Pulse Ox Last 24 Hr 98.9 F-99.4 F 78-87 17-18 131-140/70-74 90-94 General appearance: normal weight - Head Head exam: Present: normal inspection - ENT ENT exam: Present: normal exam - Neck Neck exam: Present: normal inspection - Respiratory Respiratory exam: Present: clear to auscultation bilaterally - Cardiovascular Cardiovascular exam: Present: regular rate and rhythm - GI/Abdominal GI/Abdominal exam: Present: normal bowel sounds - Extremities Exam Extremities exam: Present: normal inspection - Back Exam Back exam: Present: normal inspection - Neurological Exam Neurological exam: Present: alert Results - Labs CBC & BMP: 03/11/16 04:24 03/11/16 04:23
--- NOTE | 2016-03-12 20:49 | Event Note ---
Good response was called patient's room tonight. Apparently patient became really short of breath and dyspnea. She was satting 85% opted to move her down to the CCU for closer observation. I examined her in the CCU she looks stable currently order some labs and repeat her chest x-ray.
[2016-03-12] MEDS ORDERED: ALBUTEROL/IPRATROPIUM 3 ML NEB RESP TX PRN (20:54)
--- NOTE | 2016-03-12 21:05 | EKG Report ---
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
[2016-03-12 21:11] LABS: ABG Base Excess 3.9 MMOL/L (-2.5-2.5); ABG HCO3 27.8 MMOL/L (20-26); ABG Oxygen Saturation 92.7 % (95-100); ABG PCO2 33.5 MM HG (35-48); ABG PH 7.507 (7.35-7.45); ABG PO2 57.9 MM HG (80-95); ABG TCO2 22.8 MMOL/L (23-27)
[2016-03-12] MEDS ORDERED: CLORAZEPATE 7.5 MG TABLET PO PRN (21:19)
--- NOTE | 2016-03-12 21:25 | XRay Report ---
XR chest 1V portable Indication: Shortness of breath. Chest one view: Comparison 0550 hrs. The interstitial prominence of the lungs is decreased slightly but persists and remains relatively severe. The left lung base is better aerated as well. Lungs remain hypoinflated. Heart size is stable with continued thoracic aortic tortuosity. Impression: Very slight improved aeration of the lungs, likely from decreased edema. No adverse change identified. PROCEDURE INTERPRETED AT [facility] DEPARTMENT OF RADIOLOGY Final Report Signed by: Charles Corea M.D.
[2016-03-12] MEDS: BACLOFEN 20 MG TABLET PO SCH (21:42)
[2016-03-12] MEDS: AMITRIPTYLINE 50 MG TABLET PO SCH (21:42)
[2016-03-12] MEDS: BENZONATATE 100 MG CAPSULE PO SCH (21:43)
[2016-03-12 21:50] LABS: Calcium 8.6 MG/DL (8.5-10.1); Osmolality,Calculated 285.8 MOS/KG (273-304); Potassium 3.2 MMOL/L (3.5-5.1)
[2016-03-12 22:05] LABS: Troponin I Only < 0.015 NG/ML (0.00-0.045)
[2016-03-12] MEDS ORDERED: FUROSEMIDE 40 MG/4 ML VIAL IV ONE ×2 (22:22)
[2016-03-12] MEDS: POTASSIUM CHLORIDE 20 MEQ TABLET PO PRN (23:59)
[2016-03-13] MEDS: ALBUTEROL/IPRATROPIUM 3 ML NEB RESP TX SCH ×4 (00:19→21:04)
[2016-03-13] MEDS: NYSTATIN POWDER 15 GM BOTTLE TOP SCH ×3 (02:18→21:44)
[2016-03-13] MEDS: PIPERACILLIN/TAZOBACTAM 3,375 MG in SODIUM CHLORIDE 0.9% 100 ML IV SCH ×3 (02:42→18:34)
[2016-03-13] MEDS: POTASSIUM CHLORIDE 20 MEQ TABLET PO PRN ×4 (02:43→06:56)
[2016-03-13 05:42] LABS: Basophils # 0.1 10*3/uL (0.0-0.2); Basophils % 0.5 % (0.0-0.8); Eosinophils # 0.1 10*3/uL (0.0-0.87); Eosinophils % 0.8 % (0.00-10.9); Hematocrit 40.9 VOL% (35.7-47.0); Hemoglobin 13.3 GM/DL (12.0-16.0); Immature Granulocytes % 5.1 %; Immature Granulocytes Absolute 0.78 #; Lymphocytes # 2.1 10*3/uL (1.4-4.0); Lymphocytes % 13.6 % (21.3-54.2); Mean Corpuscular HGB Conc 32.5 GM/DL (32-36); Mean Corpuscular Hemoglobin 27 PG (27-34); Monocytes # 1.4 10*3/uL (0.11-0.8); Monocytes % 9.4 % (1.7-12.7); Neutrophils # 10.7 10*3/uL (1.4-7.4); Neutrophils % 70.6 % (38.7-73.9); Platelet Count 282 T/CUMM (130-400); Red Blood Count 4.87 MC/CUMM (3.8-5.5); White Blood Count 15.2 T/CUMM (4-12)
[2016-03-13 06:07] LABS: Osmolality,Calculated 286.7 MOS/KG (273-304)
[2016-03-13 06:16] LABS: Troponin I Only 0.057 NG/ML (0.00-0.045)
[2016-03-13 06:25] LABS: Band Neutrophils 3 % (0-10); Lymphocytes 10 % (20-55); Segmented Neutrophils 78 % (50-85); Total Cells Counted 100
[2016-03-13 06:26] LABS: Hypochromasia 1+; Platelet Estimate Adequate
--- NOTE | 2016-03-13 07:38 | XRay Report ---
Referring Physician: Charles Eaton Exam: XR chest 1V portable Date: March 13, 2016 at 4:01 AM Reason: Shortness of breath Comparison: Chest one view portable March 12, 2016 Findings: The cardiac silhouette is borderline prominent, and the thoracic aorta is tortuous. There are patchy scattered opacities within both lungs. This could represent pulmonary edema and/or pneumonia with atelectasis. No pneumothorax is identified, but there is mild bilateral pleural fluid. The osseous structures appear stable. Surgical clips are seen within the right and mid abdomen. Impression: There has been no significant change. PROCEDURE INTERPRETED AT [facility] DEPARTMENT OF RADIOLOGY Final Report Signed by: Dr. Lincoln Donahue [facility]ITAL[facility]
[2016-03-13] MEDS: CLORAZEPATE 3.75 MG TABLET PO PRN (08:35)
[2016-03-13] MEDS: DESITIN 4OZ/NYSTATIN 15 GRAM MIXTURE PASTE TOP SCH ×2 (09:21→21:44)
[2016-03-13] MEDS: BENZONATATE 100 MG CAPSULE PO SCH ×3 (09:21→21:44)
[2016-03-13] MEDS: CALCIUM (CARBONATE)/VITAMIN D 600 MG-400 UNIT TABLET PO SCH (09:21)
[2016-03-13] MEDS: LISINOPRIL 5 MG TABLET PO SCH (09:21)
[2016-03-13] MEDS: PHENAZOPYRIDINE 95 MG TABLET PO SCH (09:22)
[2016-03-13] MEDS: PANTOPRAZOLE 40 MG TABLET PO SCH (09:22)
[2016-03-13] MEDS: ASPIRIN EC 81 MG TABLET PO SCH (09:22)
[2016-03-13] MEDS: GABAPENTIN 100 MG CAPSULE PO SCH ×2 (09:22→21:43)
--- NOTE | 2016-03-13 11:10 | Hospitalist Progress Note ---
Assessment and Plan (1) Abdominal pain Status: Acute Current Visit: Yes Qualifiers: Abdominal location: right upper quadrant Qualified Code(s): R10.11 - Right upper quadrant pain (2) UTI (urinary tract infection) Status: Acute Current Visit: Yes Qualifiers: Urinary tract infection type: acute cystitis Hematuria presence: without hematuria Qualified Code(s): N30.00 - Acute cystitis without hematuria (3) Abdominal mass Status: Acute Assessment and plan: Patient's deemed not a surgical candidate. Best route will be treatment antibiotics. Patient symptomatically seems to improved. We'll repeat a chest x -ray in 48 hours. The read on the chest x-ray was very vague could include scarring pulmonary edema versus infiltrate. Zosyn she is currently on would treat a pneumonia. Continue to monitor patient will follow along with you. 03/11/16 patient seems to be doing okay. She is having some complaints about nausea and diarrhea. Check her stool for culture. Recheck an x-ray in the morning to evaluate her pneumonia and scheduled breathing treatments when necessary 03/12/16 patient continues to improve slightly. Her stool studies did not display any pathogens at this point. Her x-ray does show some patchy possible infiltrates. I will order some Tessalon Perles to see if that will help her. We need to get physical therapy and borderline patient's able to participate 03/13/16 patient had a setback yesterday. I have moved her down to the unit for closer observation. She seems stable down here she is currently on a nonrebreather sats are in the low 90s. Crit x-ray really hasn't changed that much she has this pulmonary edema versus infiltrate. I have her on Zosyn. I gave her some Lasix last night secondary to elevated BNP. She still continues to have these coughing spells. I'm going to consult pulmonary disease if they could have some input on the treatment of her. Current Visit: Yes Hospitalist: Subjective Interval history: Patient required transfer to ICU after rapid response was called. She was very short winded and she dropped her O2 sats. Exam - Constitutional Vitals: Period Temp Pulse Resp BP Sys/Redmond Pulse Ox Last 24 Hr 98.0 F-99.7 F 88-110 20-44 116-193/63-107 86-96 General appearance: normal weight - Head Head exam: Present: normal inspection - ENT ENT exam: Present: normal exam - Neck Neck exam: Present: normal inspection - Respiratory Respiratory exam: Present: clear to auscultation bilaterally - Cardiovascular Cardiovascular exam: Present: regular rate and rhythm - GI/Abdominal GI/Abdominal exam: Present: normal bowel sounds - Extremities Exam Extremities exam: Present: normal inspection - Back Exam Back exam: Present: normal inspection - Neurological Exam Neurological exam: Present: alert - Psychiatric Psychiatric exam: Present: normal affect - Skin Skin exam: Present: normal color Results - Labs CBC & BMP: 03/13/16 05:27 03/13/16 05:27
--- NOTE | 2016-03-13 15:56 | Physician Query Form ---
CLICK EDIT DOCUMENT TO SELECT QUERY ANSWER --> OK --> SIGN Marixa Moya RN Clinical Patient Care Associate W) [phone] (f) [phone] [email or web address] PROVIDERS: Make your selection(s) from the choices in EACH section by typing an "x" and enter comments in the comment section. Please use your independent medical judgment in providing your response. This request does not imply that any particular answer is desired or expected. CLINICAL INDICATORS: (Providers should not edit this section) Based on documentation of "patient became really short of breath and dyspnea. She was satting 85% and opted to move her down to the CCU for closer observation. Currently on a nonrebreather sats are in the low 90s." If possible, please further clarify the type and acuity of respiratory diagnosis : ACUITY: ( x) Acute ( ) Chronic ( ) Acute on Chronic TYPE: ( x) Respiratory failure with hypoxia ( ) Respiratory failure with hypercapnia ( ) Respiratory Arrest ( ) Postprocedural/postoperative respiratory failure ( ) Respiratory Insufficiency ( ) ARDS (Adult/Acute Respiratory Distress Syndrome) ( ) Other, please specify: ( ) Clinically unable to determine Recognized criteria for respiratory failure PH <7.35 or >7.45 PO2 <60 PCO2 >50 RR >24 O2 Sat <90% on RA or <95% on O2 Use of accessory muscles Unable to speak in full sentences Intubation is not required COMMENTS: Use of terms such as suspected, likely, or probable (associated with a specific diagnosis that is being evaluated, monitored, or treated as if it exists) are acceptable and can be restated in the discharge summary if not ruled out. MTDD
--- NOTE | 2016-03-13 16:38 | General Surgery Progress Note ---
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 This does not appear to be perforated freely but there is scattered gas and debris within it. The pancreas adjacent to this is largely absent. I think that intervention on this surgically would be extremely high risk in this elderly frail patient and we will try to manage this conservatively since she appears to be stable at this time. We will start her on IV antibiotics. 03/07: She feels better this morning. 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 She certainly does not have findings consistent with peritonitis. I think that we need to continue IV antibiotics and IV fluids and close observation. We'll consult Hospital medicine to help with her medical problems. She is a poor surgical candidate and hopefully we can avoid surgical intervention. 03/08: She has less abdominal pain and feels and looks better. She is afebrile with stable vital signs. She still has an elevated white blood cell count. Her abdomen is really nontender at this point and it appears to be responding clinically to IV antibiotics. She would be a very poor operative risk for operative intervention in this location. We will continue with medical treatment. 03/10 the abdominal pain is essentially resolved and I do not appreciate any mass effect or tenderness. She has had increased cough and has not had nausea or vomiting. I am continuing IV antibiotics. I'm going to check a follow-up CT scan see if the inflammatory process in her upper abdomen is resolved. 03/11: inflammatory process at 3rd portion duodenum still present but looks better. I suspect duodenal diverticulitis vs focally perforated ulcer. I would be afraid to do EGD. Would cont IV abx for now. WBC decreased. Current Visit: Yes Qualifiers: Abdominal location: right upper quadrant Qualified Code(s): R10.11 - Right upper quadrant pain (2) UTI (urinary tract infection) Status: Acute Assessment and plan: She describes urinary symptoms with dysuria and this is been a frequent recurrent problem for her. Her urinalysis has white cells in the urine and we will check a urine culture. She will be on IV antibiotics. Current Visit: Yes Qualifiers: Urinary tract infection type: acute cystitis Hematuria presence: without hematuria Qualified Code(s): N30.00 - Acute cystitis without hematuria (3) Duodenal diverticulum Status: Acute Assessment and plan: The patient's abdominal symptoms appear better and her diarrhea has subsided. I think this was most likely related to the contrast from her repeat CT scan. It appears that her processes probably an inflamed duodenal diverticulum which is responding to IV antibiotics. From an abdominal standpoint she is doing better and is tolerating by mouth diet and has minimal abdominal pain. Her main complaint is call and chest pain with deep breathing. I suspect that she may have some development of pneumonia. 03/13/16: She really has no abdominal complaints at this point. She denies abdominal pain. She says her main problem for her is cough. I think that her abdominal pain and was probably a inflammatory change around a duodenal diverticulum is subsided. I will be happy to follow along but certainly do not feel that surgical intervention would be helpful this point. Current Visit: Yes Subjective Patient reports: Present: bowel movement. Absent: still having pain, nausea, vomiting, fever Exam - Constitutional Vitals: Period Temp Pulse Resp BP Sys/Redmond Pulse Ox Last 24 Hr 97.3 F-99.5 F 89-110 19-107 116-193/63-107 86-97 General appearance: no acute distress - Respiratory Respiratory exam: Absent: accessory muscle use - GI/Abdominal GI/Abdominal exam: Present: soft. Absent: distended, tenderness, rebound - Neurological Exam Neurological exam: Present: alert, oriented X3 Speech: Present: normal Results - Labs CBC & BMP: 03/13/16 05:27 03/13/16 05:27 Lab Results: I have reviewed the past 24 hour labs
[2016-03-13] MEDS: HYDROmorphone 2 MG/1 ML VIAL IV PRN ×2 (18:41→23:07)
--- NOTE | 2016-03-13 19:14 | Pulmonology Consult Note ---
History of Present Illness Chief complaint: Abnormal chest x-ray. Hypoxemia. Abdominal pain History of present illness: Ms. Rose is a 86 year old white female whom I been asked to see in pulmonary consultation for evaluation and treatment. This patient is not a very good historian. She was admitted to the hospital on 03/06/2016. She had an inflammatory appearing mass at the level of the distal duodenal. 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 It was elected not to pursue surgery at this point and to manage her medically. Dr. Mercado's note from 03/13/2016 indicates that this is subsiding. This patient has had an abnormal chest x-ray. There are no old chest x-rays for comparison. She has developed progressive hypoxemia while she is in the hospital. Of told by the medical staff at this patient's able to swallow her pills without any problem. Both the patient and the nurses deny reflux and has been nothing to suggest aspiration. The remainder of the review of systems is negative Allergies. Codeine and sulfa. Home medicines. See below. Hospital medicines. See below. Past history. High blood pressure. Anxiety disorders. Recurrent urinary tract infections. Arthritis. Previous cholecystectomy.. Diverticulosis. Previous bladder tack. Previous hysterectomy. 1997 the patient had a hiatal hernia with severe gastroesophageal reflux and esophageal stricture in 2013 the patient had 3's elevated PTH family history. Positive for heart disease and high blood pressure. Also there is a family history of strokes. Social history patient has said that she never's smokes and she does not use alcohol. Chest x-ray. My interpretation. Mild cardiomegaly. Central venous engorgement. Increased interstitial markings in both mid lung meléndez and to a lesser extent both lower lung meléndez. This most likely represents an atypical pulmonary edema. Keep in mind the possibility of aspiration with infiltrates Lab. Reviewed. Potassium is low at 3.0. Creatinine 0.6. White blood cell count on admission was 20,700. For brief time this dropped to 10,800. White count is now 15,200 with 71 segs 13.6 lymphocytes. Platelets of 282,000. Troponin is negative. Natruretic peptide was elevated 542. O2 sats have progressively decreased in the face of 15 L/min O2. Physical exam. Vital signs. See below Psychiatric. Alert and arousable. Not a good historian. Neurologic. Cranial nerves are grossly intact Face is symmetrical lips tongue appear to be normal. Neck. No meningismus. Lymphatics. No submandibular cervical supraclavicular or epitrochlear adenopathy. Chest. No significant chest wall tenderness. Chest is symmetrical. Breath sounds are surprisingly clear. Heart. No definite gallop. Abdomen. Active bowel sounds. As per Dr. Mercado. and rectal deferred. Lower extremities. Trace of edema bilaterally. Slightly tender calves. The remainder the physical exam is noncontributory. Impression. 1. Acute abdominal pain thought to be infectious and resolving. White count remains elevated. 2. Abnormal chest x-ray with progressive hypoxemia. I think the patient has mild congestive heart failure. We need to watch for aspiration and pneumonia. #1 thing is to rule out pulmonary emboli and deep venous thrombophlebitis. 4. See past history 5. Hypokalemia Plan. 1. Lovenox 30 mg subcu every 12 hours 2. Doppler venograms of the lower extremities. 3. Lasix 20 IV push every 8 hours 4. IV potassium replacement protocol 5. Sputum for Gram stain culture and sensitivity 6. Follow-up chest x-ray and ABGs in the morning 7. Depending on the patient's response and other findings may proceed with CT pulmonary arteriograms. 8. Echocardiogram to evaluate cardiac function. 9. Daily BMP 10. CBC and BMP tomorrow Home Medications Medication Instructions Recorded Confirmed Type Amitriptyline [Elavil] 50 mg PO BEDTIME 03/06/16 03/07/16 History Amoxicillin Cap/Tab 500 mg PO TID 03/06/16 03/07/16 History Baclofen [Baclofen] 10 mg PO BEDTIME 03/06/16 03/07/16 History Gabapentin Cap/Tab [Neurontin 100 mg PO BID 03/06/16 03/07/16 History Cap/Tab] Lisinopril [Lisinopril] 5 mg PO DAILY 03/06/16 03/07/16 History Omeprazole [Omeprazole] 20 mg PO BID 03/06/16 03/07/16 History Oxycodone HCl [Oxycodone HCl] 10 mg PO Q6-8H 03/06/16 03/07/16 History Sertraline HCl [Sertraline HCl] 100 mg PO DAILY 03/06/16 03/07/16 History Aspirin [Ecotrin] 1 tablet PO DAILY 03/07/16 03/07/16 History Bisacodyl Tab [Dulcolax Tab] 5 mg PO DAILY PRN 03/07/16 03/07/16 History Calcium Carbonate/Vitamin D3 600 mg PO DAILY 03/07/16 03/07/16 History [Calcium 600 + Vit D Tablet] Cinnamon Bark [Cinnamon] 2 capsule PO DAILY 03/07/16 03/07/16 History Gelatin 1,200 mg PO DAILY 03/07/16 03/07/16 History Glucosamine/Chondroitin/Vit D3 800 unit DAILY 03/07/16 03/07/16 History [Vzlmyalz-Fcbwgj-Lmi D3 Tab] Multivitamin (Centrum) [Centrum 1 mg PO DAILY 03/07/16 03/07/16 History Tab] Om3/Dha/Epa/Cod Liver Oil/A/D3 1 capsule PO DAILY 03/07/16 03/07/16 History [Cod Liver Oil Softgel] Phenazopyridine HCl [Azo Urinary 1 tablet PO DAILY 03/07/16 03/07/16 History Pain Relief] Saccharomyces Boulardii [Probiotic] 1 capsule PO DAILY 03/07/16 03/07/16 History Vitamin E 400 units PO BEDTIME 03/07/16 03/07/16 History Allergies Allergy/AdvReac Type Severity Reaction Status Date / Time codeine Allergy ITCHING Verified 03/06/16 17:12 Sulfa (Sulfonamide Allergy Unknown/Unable Verified 03/06/16 17:12 Antibiotics) to obtain Exam (Pulmonay) H&P - Constitutional Vitals: Period Temp Pulse Resp BP Sys/Redmond Pulse Ox Last 24 Hr 97.3 F-99.5 F 85-110 18-107 109-193/62-107 86-98 Medical,Surgical,& Family Hx - Medical History Cardio: History of: Hypertension Psychological: History of: Anxiety Disorders Genitourinary: History of: Recurring Urinary Tract Infections Musculoskeletal: History of: Musculoskeletal Problems (ARTHRITIS) No history of: Amputation - Surgical History Thoracic Surgeries: Patient denies;: Organ Transplant Abdominal Surgeries: Surgical HX of: Abdominal Surgery, Cholecystectomy Reproductive Surgeries: Surgical HX of;: Genitourinary Surgery (bladder tack), Hysterectomy Orthopedic Surgeries: Patient denies;: Implanted Devices, Orthopedic Surgery, Spinal Surgery, Total Hip Replacement, Total Knee Replacement - Family History Family History: Reports;: Family Heart Disease, Family Hypertension Denies;: Family Anesthesia Reaction, Family Cancer, Family Diabetes, Family Hematology, Family Psychiatric Problems, Family Stroke, Additional Family History - Social History Smoking Status: Never smoker Frequency of Alcohol Use: None Type of Drug Use: None Results - Labs CBC & BMP: 03/13/16 05:27 03/13/16 05:27
--- NOTE | 2016-03-13 21:29 | Ultrasound Report ---
US venous doppler LE BI Indication: Bilateral leg pain, shortness of breath, hypoxemia. BILATERAL LOWER EXTREMITY VENOUS ULTRASOUND Comparison: 08/01/13 Findings: Graded grayscale compression, color Doppler and pulsed Doppler ultrasound evaluation of the venous structures performed. Normal compressibility, augmentation and color saturation is present within bilateral common femoral, superficial femoral, popliteal and proximal greater saphenous veins. Impression: No evidence of DVT either lower extremity. PROCEDURE INTERPRETED AT [facility] DEPARTMENT OF RADIOLOGY Final Report Signed by: Charles Corea M.D.
[2016-03-13] MEDS: BACLOFEN 20 MG TABLET PO SCH (21:43)
[2016-03-13] MEDS: ENOXAPARIN 30 MG/0.3 ML SYRINGE SUBCUT SCH (21:43)
[2016-03-13] MEDS: FUROSEMIDE 20 MG/2 ML VIAL IV SCH (21:43)
[2016-03-13] MEDS: AMITRIPTYLINE 50 MG TABLET PO SCH (21:44)
[2016-03-14] MEDS: ALBUTEROL/IPRATROPIUM 3 ML NEB RESP TX SCH ×4 (00:46→20:08)
[2016-03-14] MEDS: PIPERACILLIN/TAZOBACTAM 3,375 MG in SODIUM CHLORIDE 0.9% 100 ML IV SCH ×3 (02:26→17:18)
[2016-03-14 02:42] LABS: ABG Base Excess 3.6 MMOL/L (-2.5-2.5); ABG HCO3 27.4 MMOL/L (20-26); ABG Oxygen Saturation 89.3 % (95-100); ABG PCO2 45.9 MM HG (35-48); ABG PH 7.408 (7.35-7.45); ABG PO2 56.2 MM HG (80-95); ABG TCO2 25.4 MMOL/L (23-27); Allen Test Positive
[2016-03-14 04:49] LABS: Basophils # 0.1 10*3/uL (0.0-0.2); Basophils % 0.6 % (0.0-0.8); Eosinophils # 0.2 10*3/uL (0.0-0.87); Eosinophils % 1.4 % (0.00-10.9); Hematocrit 39.6 VOL% (35.7-47.0); Hemoglobin 12.8 GM/DL (12.0-16.0); Immature Granulocytes % 5.6 %; Immature Granulocytes Absolute 0.97 #; Lymphocytes # 2.1 10*3/uL (1.4-4.0); Mean Corpuscular HGB Conc 32.3 GM/DL (32-36); Mean Corpuscular Hemoglobin 27 PG (27-34); Mean Corpuscular Volume 84.4 FL (87-102); Mean Platelet Volume 10.3 FL (9.6-12.0); Monocytes # 1.3 10*3/uL (0.11-0.8); Monocytes % 7.2 % (1.7-12.7); Neutrophils # 12.8 10*3/uL (1.4-7.4); Neutrophils % 73.2 % (38.7-73.9); Platelet Count 335 T/CUMM (130-400); Red Blood Count 4.69 MC/CUMM (3.8-5.5); Red Cell Distribution Width 15.7 % (9.3-17.3); White Blood Count 17.4 T/CUMM (4-12)
[2016-03-14 05:19] LABS: Magnesium 1.8 MG/DL (1.8-2.4); Potassium 3.8 MMOL/L (3.5-5.1)
[2016-03-14] MEDS: FUROSEMIDE 20 MG/2 ML VIAL IV SCH (05:42)
[2016-03-14] MEDS: CLORAZEPATE 3.75 MG TABLET PO PRN ×2 (06:07→13:11)
[2016-03-14 06:21] LABS: Eosinophils 1 % (0-10); Hypochromasia 2+; Lymphocytes 9 % (20-55); Platelet Estimate Adequate; Segmented Neutrophils 84 % (50-85); Total Cells Counted 100
[2016-03-14] MEDS: DEXTROSE 5% NACL 0.45% 1,000 ML IV SCH (06:50)
--- NOTE | 2016-03-14 07:37 | XRay Report ---
Referring Physician: Charles Eaton Exam: XR chest 1V portable Date: March 14, 2016 at 3:11 AM Reason: Shortness of breath Comparison: Chest one view portable March 13, 2016 Findings: There is borderline cardiomegaly, and the thoracic aorta is tortuous. Patchy scattered opacities are present within both lungs. This could represent pulmonary edema and/or pneumonia with atelectasis. No pneumothorax is identified, but there is mild bilateral pleural fluid. The osseous structures appear stable. Surgical clips are again seen within the right abdomen. Impression: There has been no significant change. PROCEDURE INTERPRETED AT [facility] DEPARTMENT OF RADIOLOGY Final Report Signed by: Dr. Lincoln Donahue
[2016-03-14] MEDS: POTASSIUM CHLORIDE RIDER 10 MEQ in PREMIX 1 EACH IV PRN ×2 (08:30→09:16)
[2016-03-14] MEDS: ASPIRIN EC 81 MG TABLET PO SCH (09:14)
[2016-03-14] MEDS: CALCIUM (CARBONATE)/VITAMIN D 600 MG-400 UNIT TABLET PO SCH (09:14)
[2016-03-14] MEDS: NYSTATIN POWDER 15 GM BOTTLE TOP SCH ×2 (09:14→21:11)
[2016-03-14] MEDS: ENOXAPARIN 30 MG/0.3 ML SYRINGE SUBCUT SCH ×2 (09:14→21:11)
[2016-03-14] MEDS: GABAPENTIN 100 MG CAPSULE PO SCH ×2 (09:15→21:08)
[2016-03-14] MEDS: LISINOPRIL 5 MG TABLET PO SCH (09:15)
[2016-03-14] MEDS: PANTOPRAZOLE 40 MG TABLET PO SCH (09:15)
[2016-03-14] MEDS: PHENAZOPYRIDINE 95 MG TABLET PO SCH (09:15)
[2016-03-14] MEDS: DESITIN 4OZ/NYSTATIN 15 GRAM MIXTURE PASTE TOP SCH ×2 (09:15→21:09)
[2016-03-14] MEDS: BENZONATATE 100 MG CAPSULE PO SCH ×3 (09:15→21:08)
--- NOTE | 2016-03-14 09:38 | ECHO Report ---
Magdalene Rose Exam Date: 03/13/2016 08:19 Referring Physician: Technologist: Olman VELIZ Age: 86 Ht (in): Wt (lb): Gender: F Exam Location: [facility] Echo Indications: abd pain, UTI, Abd. mass BP: / HR: Rhythm: Sinus Technical Quality: Technically difficult study IMPRESSIONS Technically difficult study. EF 55- 60 %. Grade I/IV diastolic dysfunction (abnormal relaxation filling pattern), normal to mildly elevated filling pressures. Normal right ventricular size. The right atrium is mildly enlarged. Moderately increased left atrial size. Mildly thickened mitral valve. Trace mitral valve regurgitation. Aortic valve sclerosis. Mild aortic valve regurgitation. [id number]. [id number] tricuspid valve regurgitation. Pulmonic valve not well visualized. No pericardial effusion. Normal size aortic root and proximal ascending aorta. MEASUREMENTS (Male / Female) Normal Values 2D ECHO LV Diastolic Diameter PLAX 3.8 cm 4.2 - 5.9 / 3.9 - 5.3 cm LV Systolic Diameter PLAX 2.7 cm LV Fractional Shortening PLAX 28.6 % IVS Diastolic Thickness 1.4 cm 0.6 - 1.0 / 0.6 - 0.9 cm LVPW Diastolic Thickness 1.1 cm 0.6 - 1.0 / 0.6 - 0.9 cm Aortic Root Diameter 2.7 cm LA Systolic Diameter LX 3.2 cm 3.0 - 4.0 / 2.7 - 3.8 cm DOPPLER TR Peak Velocity 274.0 cm/s TR Peak Gradient 30.0 mmHg FINDINGS Left Ventricle EF 55- 60 %. Grade I/IV diastolic dysfunction (abnormal relaxation filling pattern), normal to mildly elevated filling pressures. . Right Ventricle Normal right ventricular size. Right Atrium The right atrium is mildly enlarged. Left Atrium Moderately increased left atrial size. Mitral Valve Mildly thickened mitral valve. Trace mitral valve regurgitation. Aortic Valve Aortic valve sclerosis. Mild aortic valve regurgitation. Tricuspid Valve Morphologically normal tricuspid valve. [id number] tricuspid valve regurgitation. [id number]. Pulmonic Valve Pulmonic valve not well visualized. Pericardium No pericardial effusion. Aorta Normal size aortic root and proximal ascending aorta. Adarsh Dominguez (Electronically Signed) Final Date: 13 March 2016 17:32
--- NOTE | 2016-03-14 10:57 | Pulmonology Progress Note ---
Pulmonary - PN: Subj Interval history: This is a 86-year-old white female whom I saw in pulmonary consultation on the night of 03/13/2016. Patient's main problems appear to be. 1. Admission 03/06/2016 for acute abdominal pain that was thought to be an infected duodenal diverticulum. This is resolving. She does have a remaining elevated white blood cell count. 2. Abnormal chest x-ray with progressive hypoxemia. I felt like we were dealing with mild congestive heart failure. Her BNP was elevated. She was started on Lasix 20 IV push 3 times daily. Chest x-rays a little better today ( 03/14/2016) but still abnormal. Her BNP is fallen to a normal level. Her creatinine is increased from 0.8-1.0. I have stopped her Lasix. Chest x-ray shows some scattered infiltrates which are most prominent in both upper lungs. There is no atelectasis associated with this. Today the patient is a better historian. She gave us a history of esophageal stricture. She denies solid dysphasia at the present time. She has chronic daily reflux up into her throat. I think there is a good chance we are dealing with the consequences of aspiration. We could be looking at aspiration pneumonia with superimposed bacterial pneumonia. At this point the patient looks too fragile to electively evaluate with fiberoptic bronchoscopy. She has improved. We will continue her inhalation therapy antibiotics and expectorants. Will take reflux precautions. I have started 20 mg once a day. I am reluctant to go higher in light of the recent abdominal infection. 3. Hypokalemia. Corrected. 4. Past history of high blood pressure, anxiety disorder, recurrent urinary tract infection, arthritis, cholecystectomy, diverticulosis. Also hiatal hernia and gastroesophageal reflux disease and esophageal stricture. There is also a past history of 3 elevated PTH Electrolytes are normal. Creatinine is 1.0. ABGs on 100% oxygen shows a pH of 7.408, PCO2 is 45.9. PO2 is 56.2. Bicarb is 27.4. White count is 17,400. H& H is stable at 12.8/37.6. Platelets 335,000. Natruretic peptide is dropped from 542-170. Microbiology is negative so far. Physical exam. Vital signs see above Psychiatric. Much more alert today and able to give us some history. Neurological. Cranial nerves are intact with marked decreased hearing acuity bilaterally patient moves all 4 extremities Neck. Symmetrical. No meningismus Lymphatics no submandibular cervical supraclavicular or epitrochlear adenopathy Chest. 100% clear Heart. No gallop Abdomen. Few bowel sounds are heard in all quadrants. Lower extremities. Nothing to suggest deep venous thrombophlebitis. Note the Doppler venograms of the lower extremities are negative for deep venous thrombophlebitis. Plan. 1. Antibiotics. 2. Low dose steroids. Watch abdomen. 3. Deep venous thrombophlebitis prophylaxis 4. Cultures 5. Continue antibiotics and inhalation therapy. 6. Daily chest x-ray ABGs and lab 7. Dr. Charles Sterling son and I have discussed the case and coordinated care Exam (Progress Note) - Constitutional Vitals: Period Temp Pulse Resp BP Sys/Redmond Pulse Ox Last 24 Hr 97.3 F-98.2 F 85-109 17-34 80-154/49-91 84-98 Results - Labs CBC & BMP: 03/14/16 03:51 03/14/16 03:51
--- NOTE | 2016-03-14 11:17 | Hospitalist Progress Note ---
Assessment and Plan (1) Abdominal pain Status: Acute Current Visit: Yes Qualifiers: Abdominal location: right upper quadrant Qualified Code(s): R10.11 - Right upper quadrant pain (2) UTI (urinary tract infection) Status: Acute Current Visit: Yes Qualifiers: Urinary tract infection type: acute cystitis Hematuria presence: without hematuria Qualified Code(s): N30.00 - Acute cystitis without hematuria (3) Abdominal mass Status: Acute Assessment and plan: Patient's deemed not a surgical candidate. Best route will be treatment antibiotics. Patient symptomatically seems to improved. We'll repeat a chest x -ray in 48 hours. The read on the chest x-ray was very vague could include scarring pulmonary edema versus infiltrate. Zosyn she is currently on would treat a pneumonia. Continue to monitor patient will follow along with you. 03/11/16 patient seems to be doing okay. She is having some complaints about nausea and diarrhea. Check her stool for culture. Recheck an x-ray in the morning to evaluate her pneumonia and scheduled breathing treatments when necessary 03/12/16 patient continues to improve slightly. Her stool studies did not display any pathogens at this point. Her x-ray does show some patchy possible infiltrates. I will order some Tessalon Perles to see if that will help her. We need to get physical therapy and borderline patient's able to participate 03/13/16 patient had a setback yesterday. I have moved her down to the unit for closer observation. She seems stable down here she is currently on a nonrebreather sats are in the low 90s. Crit x-ray really hasn't changed that much she has this pulmonary edema versus infiltrate. I have her on Zosyn. I gave her some Lasix last night secondary to elevated BNP. She still continues to have these coughing spells. I'm going to consult pulmonary disease if they could have some input on the treatment of her. 03/14/16 patient is still continuing to require ICU management discussed the case with Dr. Colvin. He suggests low-dose steroids. Patient is on Zosyn. There might be an element of aspiration going on with this patient. Need to continue current inhalation therapy and monitor for improvement Current Visit: Yes Hospitalist: Subjective Interval history: Patient still requires ICU management. O2 sats of been in the 92-90% range. Patient says that she feels weak but otherwise doing okay Exam - Constitutional Vitals: Period Temp Pulse Resp BP Sys/Redmond Pulse Ox Last 24 Hr 97.8 F-98.2 F 85-109 17-34 80-154/49-91 84-98 General appearance: normal weight - Head Head exam: Present: normal inspection - ENT ENT exam: Present: normal exam - Neck Neck exam: Present: normal inspection - Respiratory Respiratory exam: Present: Some basilar crackles appreciated - Cardiovascular Cardiovascular exam: Present: regular rate and rhythm - GI/Abdominal GI/Abdominal exam: Present: normal bowel sounds - Extremities Exam Extremities exam: Present: normal inspection - Back Exam Back exam: Present: normal inspection - Neurological Exam Neurological exam: Present: alert - Psychiatric Psychiatric exam: Present: normal affect - Skin Skin exam: Present: normal color Results - Labs CBC & BMP: 03/14/16 03:51 03/14/16 03:51
[2016-03-14] MEDS: methylPREDNISolone SOD SUC 40 MG/1 ML VIAL IV SCH (11:19)
[2016-03-14] MEDS: LEVOFLOXACIN INJ 250 MG in PREMIX 1 EACH IV SCH (11:19)
[2016-03-14] MEDS: ONDANSETRON 4 MG/2 ML VIAL IV PRN (17:18)
--- NOTE | 2016-03-14 17:47 | General Surgery Progress Note ---
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 This does not appear to be perforated freely but there is scattered gas and debris within it. The pancreas adjacent to this is largely absent. I think that intervention on this surgically would be extremely high risk in this elderly frail patient and we will try to manage this conservatively since she appears to be stable at this time. We will start her on IV antibiotics. 03/07: She feels better this morning. 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 She certainly does not have findings consistent with peritonitis. I think that we need to continue IV antibiotics and IV fluids and close observation. We'll consult Hospital medicine to help with her medical problems. She is a poor surgical candidate and hopefully we can avoid surgical intervention. 03/08: She has less abdominal pain and feels and looks better. She is afebrile with stable vital signs. She still has an elevated white blood cell count. Her abdomen is really nontender at this point and it appears to be responding clinically to IV antibiotics. She would be a very poor operative risk for operative intervention in this location. We will continue with medical treatment. 03/10 the abdominal pain is essentially resolved and I do not appreciate any mass effect or tenderness. She has had increased cough and has not had nausea or vomiting. I am continuing IV antibiotics. I'm going to check a follow-up CT scan see if the inflammatory process in her upper abdomen is resolved. 03/11: inflammatory process at 3rd portion duodenum still present but looks better. I suspect duodenal diverticulitis vs focally perforated ulcer. I would be afraid to do EGD. Would cont IV abx for now. WBC decreased. Current Visit: Yes Qualifiers: Abdominal location: right upper quadrant Qualified Code(s): R10.11 - Right upper quadrant pain (2) UTI (urinary tract infection) Status: Acute Assessment and plan: She describes urinary symptoms with dysuria and this is been a frequent recurrent problem for her. Her urinalysis has white cells in the urine and we will check a urine culture. She will be on IV antibiotics. Current Visit: Yes Qualifiers: Urinary tract infection type: acute cystitis Hematuria presence: without hematuria Qualified Code(s): N30.00 - Acute cystitis without hematuria (3) Duodenal diverticulum Status: Acute Assessment and plan: The patient's abdominal symptoms appear better and her diarrhea has subsided. I think this was most likely related to the contrast from her repeat CT scan. It appears that her processes probably an inflamed duodenal diverticulum which is responding to IV antibiotics. From an abdominal standpoint she is doing better and is tolerating by mouth diet and has minimal abdominal pain. Her main complaint is call and chest pain with deep breathing. I suspect that she may have some development of pneumonia. 03/13/16: She really has no abdominal complaints at this point. She denies abdominal pain. She says her main problem for her is cough. I think that her abdominal pain and was probably a inflammatory change around a duodenal diverticulum is subsided. I will be happy to follow along but certainly do not feel that surgical intervention would be helpful this point. 03/14: She denies abdominal pain and I do not think that the duodenal diverticulitis is a factor at this point. Her main issues appear to be pulmonary at this point. I agree with medical management and clearly she would be a very poor candidate for operative intervention. I will continue to follow but I do not see signs of an acute abdomen at this point. This is much better than it was several days ago. Current Visit: Yes Subjective Patient reports: Present: feels better. Absent: still having pain, nausea, vomiting Exam - Constitutional Vitals: Period Temp Pulse Resp BP Sys/Redmond Pulse Ox Last 24 Hr 97.8 F-98.2 F 87-109 17-87 80-170/49-93 76-95 General appearance: no acute distress - Head Head exam: Present: normocephalic - Eye Eye exam: Absent: scleral icterus - ENT Mouth exam: Present: normal voice - Respiratory Respiratory exam: Absent: accessory muscle use - GI/Abdominal GI/Abdominal exam: Present: soft. Absent: distended, tenderness, rebound Results - Labs CBC & BMP: 03/14/16 03:51 03/14/16 03:51 Lab Results: I have reviewed the past 24 hour labs
[2016-03-14] MEDS: AMITRIPTYLINE 50 MG TABLET PO SCH (21:07)
[2016-03-14] MEDS: BACLOFEN 20 MG TABLET PO SCH (21:09)
[2016-03-14] MEDS: ACETAMINOPHEN 325 MG TABLET PO PRN (23:31)
[2016-03-15] MEDS: ALBUTEROL/IPRATROPIUM 3 ML NEB RESP TX SCH ×4 (01:58→19:43)
[2016-03-15] MEDS: PIPERACILLIN/TAZOBACTAM 3,375 MG in SODIUM CHLORIDE 0.9% 100 ML IV SCH ×3 (02:04→18:18)
[2016-03-15 03:59] LABS: ABG Base Excess 4.6 MMOL/L (-2.5-2.5); ABG HCO3 29.4 MMOL/L (20-26); ABG Oxygen Saturation 86.5 % (95-100); ABG PCO2 44.4 MM HG (35-48); ABG PH 7.439 (7.35-7.45); ABG PO2 53.6 MM HG (80-95); ABG TCO2 30.8 MMOL/L (23-27); Allen Test Positive; Pt O2 Delivery Device Venturi Mask
[2016-03-15 05:36] LABS: Calcium 8.4 MG/DL (8.5-10.1); Osmolality,Calculated 292.7 MOS/KG (273-304); Potassium 3.4 MMOL/L (3.5-5.1)
[2016-03-15 05:47] LABS: Basophils % 0.2 % (0.0-0.8); Eosinophils % 0.1 % (0.00-10.9); Hematocrit 40.2 VOL% (35.7-47.0); Hemoglobin 12.8 GM/DL (12.0-16.0); Immature Granulocytes % 5.7 %; Immature Granulocytes Absolute 1.13 #; Lymphocytes # 1.5 10*3/uL (1.4-4.0); Lymphocytes % 7.5 % (21.3-54.2); Mean Corpuscular HGB Conc 31.8 GM/DL (32-36); Mean Corpuscular Hemoglobin 28 PG (27-34); Mean Corpuscular Volume 86.6 FL (87-102); Mean Platelet Volume 10.2 FL (9.6-12.0); Monocytes # 1.1 10*3/uL (0.11-0.8); Monocytes % 5.5 % (1.7-12.7); Neutrophils # 16.1 10*3/uL (1.4-7.4); Platelet Count 341 T/CUMM (130-400); Red Blood Count 4.64 MC/CUMM (3.8-5.5); Red Cell Distribution Width 15.8 % (9.3-17.3); White Blood Count 19.8 T/CUMM (4-12)
[2016-03-15] MEDS: POTASSIUM CHLORIDE RIDER 10 MEQ in PREMIX 1 EACH IV PRN (06:23)
[2016-03-15 06:50] LABS: Band Neutrophils 2 % (0-10); Elliptocytes Few; Eosinophils 1 % (0-10); Hypochromasia Slight; Lymphocytes 6 % (20-55); Platelet Estimate Adequate; Segmented Neutrophils 86 % (50-85); Total Cells Counted 100
--- NOTE | 2016-03-15 08:28 | Pulmonology Progress Note ---
Pulmonary - PN: Subj Interval history: Patient is an 86-year-old white lady that came into the hospital with abdominal pain and acute abdomen. She was felt to have a diverticular abscess. She has been on antibiotics and her abdomen is better. She has developed worsening shortness of breath however and has bilateral upper lobe infiltrates. She is requiring oxygen and says she feels a little better. She is still coughing some and is still quite alert. She says her abdomen is feeling better. She is not having any chest pain. Exam (Progress Note) - Constitutional Vitals: Period Temp Pulse Resp BP Sys/Redmond Pulse Ox Last 24 Hr 96.8 F-97.9 F 82-106 18-87 84-170/50-93 76-95 General appearance: mild distress, under weight - Head Head exam: Present: normal inspection, normocephalic - Eye Eye exam: Present: EOMI. Absent: scleral icterus Pupils: Present: KAYLYN - ENT ENT exam: Present: normal exam - Neck Neck exam: Present: normal inspection. Absent: thyromegaly - Respiratory Respiratory exam: Present: rales, rhonchi, other (patient has fair breath sounds bilaterally with rales and rhonchi in the upper lobes.) - Cardiovascular Cardiovascular exam: Present: regular rate and rhythm. Absent: gallop, systolic murmur - GI/Abdominal GI/Abdominal exam: Present: hypoactive bowel sounds, tenderness (she has mild tenderness in the lower abdomen.), soft. Absent: distended, firm, guarding, organomegaly - Extremities Exam Extremities exam: Present: normal inspection. Absent: calf tenderness, edema - Neurological Exam Neurological exam: Present: alert, oriented X3, CN II-XII intact - Psychiatric Psychiatric exam: Present: normal affect - Skin Skin exam: Present: warm, dry Results - Labs CBC & BMP: 03/15/16 04:42 03/15/16 04:42 Labs: The PO2 is 53 with a PCO2 of 44 and pH is 7.43 - Diagnostic Findings Procedure: Chest x-ray: image reviewed by me, report reviewed by me (chest x- ray shows bilateral upper lobe infiltrates.) Assessment and Plan (1) Bilateral pneumonia Status: Acute Assessment and plan: Patient is short of breath with hypoxemia and has bilateral infiltrates. She will continue with respiratory therapy and antibiotics. Current Visit: Yes (2) Abdominal pain Status: Acute Assessment and plan: The patient is abdominal pain is improving and her diverticulitis getting better. Current Visit: Yes Qualifiers: Abdominal location: right upper quadrant Qualified Code(s): R10.11 - Right upper quadrant pain (3) UTI (urinary tract infection) Status: Acute Assessment and plan: Patient had Escherichia coli on her urine culture. 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 Current Visit: Yes
--- NOTE | 2016-03-15 09:27 | XRay Report ---
Portable chest Date:[03/15/2016] Clinical history: Hypoxemic, shortness of breath, cough Comparison: 03/14/2016 Technique: Portable AP sitting chest Findings: Persistent cardiomegaly with uncoiling the aorta. Progressive parenchymal findings especially the upper lung zones and the lung bases. Stable mediastinum and osseous structures. Degenerative changes are noted. Impression: Progressive bilateral pneumonia/pulmonary edema with small pleural effusions. Followup chest x-ray recommended. PROCEDURE INTERPRETED AT [facility] DEPARTMENT OF RADIOLOGY Final Report Signed by: Dr. Amira Daley
[2016-03-15] MEDS: ASPIRIN EC 81 MG TABLET PO SCH (09:33)
[2016-03-15] MEDS: CALCIUM (CARBONATE)/VITAMIN D 600 MG-400 UNIT TABLET PO SCH (09:33)
[2016-03-15] MEDS: GABAPENTIN 100 MG CAPSULE PO SCH ×2 (09:35→20:12)
[2016-03-15] MEDS: PANTOPRAZOLE 40 MG TABLET PO SCH (09:35)
[2016-03-15] MEDS: PHENAZOPYRIDINE 95 MG TABLET PO SCH (09:35)
[2016-03-15] MEDS: BENZONATATE 100 MG CAPSULE PO SCH ×3 (09:35→20:11)
[2016-03-15] MEDS: methylPREDNISolone SOD SUC 40 MG/1 ML VIAL IV SCH (09:36)
[2016-03-15] MEDS: LISINOPRIL 5 MG TABLET PO SCH (09:36)
[2016-03-15] MEDS: NYSTATIN POWDER 15 GM BOTTLE TOP SCH ×2 (09:36→20:12)
[2016-03-15] MEDS: ENOXAPARIN 30 MG/0.3 ML SYRINGE SUBCUT SCH ×2 (09:38→20:12)
[2016-03-15] MEDS: DESITIN 4OZ/NYSTATIN 15 GRAM MIXTURE PASTE TOP SCH ×2 (09:43→20:12)
--- NOTE | 2016-03-15 09:57 | Hospitalist Progress Note ---
Assessment and Plan (1) Acute respiratory failure with hypoxia Status: Acute Current Visit: Yes (2) UTI (urinary tract infection) Status: Acute Current Visit: Yes Qualifiers: Urinary tract infection type: acute cystitis Hematuria presence: without hematuria Qualified Code(s): N30.00 - Acute cystitis without hematuria (3) Bilateral pneumonia Status: Acute Current Visit: Yes (4) Duodenal diverticulum Status: Acute Current Visit: Yes (5) Abdominal pain Status: Acute Assessment and plan: Plan: 03/15: She still requiring a fair bit of respiratory support, currently on 50% FiO2 face mask. Continue broad-spectrum IV antibiotics. This is covering her UTI as well. Change her diet to soft mechanical, seems to be tolerating some snacks without worsening of her abdominal pain. White count is still elevated however steroids may be contributing to this. She is afebrile, her abdominal pain is improving. It is felt that she does not have an acute abdomen at this time. Prognosis remains guarded from a respiratory standpoint. Current Visit: Yes Qualifiers: Abdominal location: right upper quadrant Qualified Code(s): R10.11 - Right upper quadrant pain Hospitalist: Subjective Interval history: Ms. Rose remains on 50% FiO2 face mask with sats in the upper 80s. She does not look to be in any acute respiratory distress. She is pleasant. She has minimal abdominal pain but is able to tolerate some by mouth intake. She has no other complaints. Chest x-ray shows bilateral infiltrates. Exam - Constitutional Vitals: Period Temp Pulse Resp BP Sys/Redmond Pulse Ox Last 24 Hr 96.8 F-97.9 F 82-106 18-87 84-170/50-93 76-95 Exam: EXAM: CONSTITUTIONAL: non toxic, NAD HEENT: NC, AT, OP benign, KAYLYN, EOMI CV: RRR no m/g/r RESP: Diffuse rales bilaterally GI: abd soft, NT, ND, +bowel sounds INTEGUMENTARY: no lesions or rash EXTREMITIES: no c/c/e NEURO: no focal deficits PSYCH: Awake, alert, pleasant Results - Labs CBC & BMP: 03/15/16 04:42 03/15/16 04:42 Lab Results: I have reviewed the past 24 hour labs - Diagnostic Findings Procedure: Chest x-ray: image reviewed by me, report reviewed by me
[2016-03-15] MEDS: LEVOFLOXACIN INJ 250 MG in PREMIX 1 EACH IV SCH (11:29)
--- NOTE | 2016-03-15 12:03 | General Surgery Progress Note ---
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 This does not appear to be perforated freely but there is scattered gas and debris within it. The pancreas adjacent to this is largely absent. I think that intervention on this surgically would be extremely high risk in this elderly frail patient and we will try to manage this conservatively since she appears to be stable at this time. We will start her on IV antibiotics. 03/07: She feels better this morning. 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 She certainly does not have findings consistent with peritonitis. I think that we need to continue IV antibiotics and IV fluids and close observation. We'll consult Hospital medicine to help with her medical problems. She is a poor surgical candidate and hopefully we can avoid surgical intervention. 03/08: She has less abdominal pain and feels and looks better. She is afebrile with stable vital signs. She still has an elevated white blood cell count. Her abdomen is really nontender at this point and it appears to be responding clinically to IV antibiotics. She would be a very poor operative risk for operative intervention in this location. We will continue with medical treatment. 03/10 the abdominal pain is essentially resolved and I do not appreciate any mass effect or tenderness. She has had increased cough and has not had nausea or vomiting. I am continuing IV antibiotics. I'm going to check a follow-up CT scan see if the inflammatory process in her upper abdomen is resolved. 03/11: inflammatory process at 3rd portion duodenum still present but looks better. I suspect duodenal diverticulitis vs focally perforated ulcer. I would be afraid to do EGD. Would cont IV abx for now. WBC decreased. Current Visit: Yes Qualifiers: Abdominal location: right upper quadrant Qualified Code(s): R10.11 - Right upper quadrant pain (2) UTI (urinary tract infection) Status: Acute Assessment and plan: She describes urinary symptoms with dysuria and this is been a frequent recurrent problem for her. Her urinalysis has white cells in the urine and we will check a urine culture. She will be on IV antibiotics. Current Visit: Yes Qualifiers: Urinary tract infection type: acute cystitis Hematuria presence: without hematuria Qualified Code(s): N30.00 - Acute cystitis without hematuria (3) Duodenal diverticulum Status: Acute Assessment and plan: The patient's abdominal symptoms appear better and her diarrhea has subsided. I think this was most likely related to the contrast from her repeat CT scan. It appears that her processes probably an inflamed duodenal diverticulum which is responding to IV antibiotics. From an abdominal standpoint she is doing better and is tolerating by mouth diet and has minimal abdominal pain. Her main complaint is call and chest pain with deep breathing. I suspect that she may have some development of pneumonia. 03/13/16: She really has no abdominal complaints at this point. She denies abdominal pain. She says her main problem for her is cough. I think that her abdominal pain and was probably a inflammatory change around a duodenal diverticulum is subsided. I will be happy to follow along but certainly do not feel that surgical intervention would be helpful this point. 03/14: She denies abdominal pain and I do not think that the duodenal diverticulitis is a factor at this point. Her main issues appear to be pulmonary at this point. I agree with medical management and clearly she would be a very poor candidate for operative intervention. I will continue to follow but I do not see signs of an acute abdomen at this point. This is much better than it was several days ago. 03/15: She has no abdominal pain and her abdomen is nontender. She seems to have her main complaint now be an area and I do not see any signs of acute abdomen. I am available if we have any worsening of her abdominal situation however I do not think that she is an operative candidate Current Visit: Yes Subjective Patient reports: Present: shortness of breath. Absent: still having pain, nausea, vomiting, fever Exam - Constitutional Vitals: Period Temp Pulse Resp BP Sys/Redmond Pulse Ox Last 24 Hr 96.8 F-97.9 F 82-106 18-87 84-170/50-93 76-95 General appearance: no acute distress - Respiratory Respiratory exam: Present: accessory muscle use - GI/Abdominal GI/Abdominal exam: Present: soft. Absent: distended, tenderness, rebound Results - Labs CBC & BMP: 03/15/16 04:42 03/15/16 04:42 Lab Results: I have reviewed the past 24 hour labs
[2016-03-15] MEDS: CLORAZEPATE 3.75 MG TABLET PO PRN (15:16)
[2016-03-15] MEDS: BACLOFEN 20 MG TABLET PO SCH (20:11)
[2016-03-15] MEDS: AMITRIPTYLINE 50 MG TABLET PO SCH (20:12)
[2016-03-16] MEDS: ALBUTEROL/IPRATROPIUM 3 ML NEB RESP TX SCH ×4 (00:49→20:12)
[2016-03-16] MEDS: PIPERACILLIN/TAZOBACTAM 3,375 MG in SODIUM CHLORIDE 0.9% 100 ML IV SCH ×3 (01:00→17:28)
[2016-03-16] MEDS: CLORAZEPATE 3.75 MG TABLET PO PRN ×3 (01:04→16:00)
[2016-03-16 03:13] LABS: ABG Base Excess 5.9 MMOL/L (-2.5-2.5); ABG HCO3 31.1 MMOL/L (20-26); ABG Oxygen Saturation 92.8 % (95-100); ABG PCO2 47.7 MM HG (35-48); ABG PH 7.432 (7.35-7.45); ABG PO2 66.9 MM HG (80-95); ABG TCO2 32.6 MMOL/L (23-27)
[2016-03-16 04:30] LABS: Basophils # 0.1 10*3/uL (0.0-0.2); Basophils % 0.2 % (0.0-0.8); Eosinophils % 0.1 % (0.00-10.9); Hematocrit 37.3 VOL% (35.7-47.0); Hemoglobin 11.8 GM/DL (12.0-16.0); Immature Granulocytes % 3.3 %; Immature Granulocytes Absolute 0.75 #; Lymphocytes # 2.1 10*3/uL (1.4-4.0); Lymphocytes % 9.2 % (21.3-54.2); Mean Corpuscular HGB Conc 31.6 GM/DL (32-36); Mean Corpuscular Hemoglobin 27 PG (27-34); Mean Corpuscular Volume 86.5 FL (87-102); Mean Platelet Volume 10.2 FL (9.6-12.0); Monocytes # 1.1 10*3/uL (0.11-0.8); Monocytes % 4.8 % (1.7-12.7); Neutrophils # 18.6 10*3/uL (1.4-7.4); Neutrophils % 82.4 % (38.7-73.9); Platelet Count 422 T/CUMM (130-400); Red Blood Count 4.31 MC/CUMM (3.8-5.5); Red Cell Distribution Width 15.9 % (9.3-17.3); White Blood Count 22.6 T/CUMM (4-12)
[2016-03-16 04:53] LABS: Calcium 8.7 MG/DL (8.5-10.1); Magnesium 2.2 MG/DL (1.8-2.4); Osmolality,Calculated 289.7 MOS/KG (273-304); Potassium 3.4 MMOL/L (3.5-5.1)
[2016-03-16 05:07] LABS: Lymphocytes 5 % (20-55); Segmented Neutrophils 89 % (50-85); Total Cells Counted 100
[2016-03-16 05:08] LABS: Elliptocytes Few; Hypochromasia 1+; Platelet Estimate Adequate
[2016-03-16] MEDS: POTASSIUM CHLORIDE RIDER 10 MEQ in PREMIX 1 EACH IV PRN ×3 (05:30→11:58)
--- NOTE | 2016-03-16 07:44 | Pulmonology Progress Note ---
Pulmonary - PN: Subj Interval history: Patient is an 86-year-old white lady that came into the hospital with abdominal pain and acute abdomen. She was felt to have a diverticular abscess. She has been on antibiotics and her abdomen is better. She has developed worsening shortness of breath however and has bilateral upper lobe infiltrates. She continues to cough some and is still short of breath. She is still requiring oxygen. She says her abdomen is doing better. Her blood pressure and heart rate are a little elevated. Exam (Progress Note) - Constitutional Vitals: Period Temp Pulse Resp BP Sys/Redmond Pulse Ox Last 24 Hr 97.0 F-98 F 88-125 15-34 102-183/50-94 82-97 Exam: General appearance: mild distress, under weight, she is talking and alert but does get short of breath easily. - Head Head exam: Present: normal inspection, normocephalic - Eye Eye exam: Present: EOMI. Absent: scleral icterus Pupils: Present: KAYLYN - ENT ENT exam: Present: normal exam - Neck Neck exam: Present: normal inspection. Absent: thyromegaly - Respiratory Respiratory exam: Present: The patient does have very coarse breath sounds and rhonchi bilaterally. - Cardiovascular Cardiovascular exam: Present: regular rate and rhythm. Absent: gallop, systolic murmur - GI/Abdominal GI/Abdominal exam: Present: hypoactive bowel sounds, tenderness (she has mild tenderness in the lower abdomen.), soft. Absent: distended, firm, guarding, organomegaly - Extremities Exam Extremities exam: Present: normal inspection. Absent: calf tenderness, edema - Neurological Exam Neurological exam: Present: alert, oriented X3, CN II-XII intact - Psychiatric Psychiatric exam: Present: normal affect - Skin Skin exam: Present: warm, dry Results - Labs CBC & BMP: 03/16/16 03:08 03/16/16 03:08 Labs: Her PO2 is 67 with a PCO2 of 47 and pH is 7.43 - Diagnostic Findings Procedure: Chest x-ray: image reviewed by me, report reviewed by me (chest x- ray still showed bilateral upper lobe infiltrates.) Assessment and Plan (1) Bilateral pneumonia Status: Acute Assessment and plan: Patient is short of breath with hypoxemia and has bilateral infiltrates. She will continue with respiratory therapy and antibiotics. We will increase her steroids. Current Visit: Yes (2) Abdominal pain Status: Acute Assessment and plan: The patient is abdominal pain is improving and her diverticulitis getting better. Current Visit: Yes Qualifiers: Abdominal location: right upper quadrant Qualified Code(s): R10.11 - Right upper quadrant pain (3) UTI (urinary tract infection) Status: Acute Assessment and plan: Patient had Escherichia coli on her urine culture. 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 Current Visit: Yes
[2016-03-16] MEDS ORDERED: FUROSEMIDE 40 MG/4 ML VIAL IV ONE (07:46)
[2016-03-16] MEDS: ONDANSETRON 4 MG/2 ML VIAL IV PRN ×3 (08:00→17:29)
[2016-03-16] MEDS: methylPREDNISolone SOD SUC 40 MG/1 ML VIAL IV SCH ×3 (08:00→23:15)
--- NOTE | 2016-03-16 08:58 | XRay Report ---
Portable chest Date:[03/16/2016] Clinical history: Hypoxemia, shortness breath, cough Comparison: 03/15/2016 Technique: Portable AP sitting chest Findings: Persistent cardiomegaly with minimally progressive parenchymal findings especially in the upper lobes. Persistent small pleural effusions. Stable mediastinum and osseous structures. Impression: Progressive bilateral pneumonia/pulmonary edema with small pleural effusions. Followup chest x-ray recommended. PROCEDURE INTERPRETED AT [facility] DEPARTMENT OF RADIOLOGY Final Report Signed by: Dr. Amira Daley
--- NOTE | 2016-03-16 10:18 | Hospitalist Progress Note ---
Assessment and Plan (1) Acute respiratory failure with hypoxia Status: Acute Current Visit: Yes (2) UTI (urinary tract infection) Status: Acute Current Visit: Yes Qualifiers: Urinary tract infection type: acute cystitis Hematuria presence: without hematuria Qualified Code(s): N30.00 - Acute cystitis without hematuria (3) Bilateral pneumonia Status: Acute Current Visit: Yes (4) Duodenal diverticulum Status: Acute Current Visit: Yes (5) Abdominal pain Status: Acute Assessment and plan: Plan: 03/15: She still requiring a fair bit of respiratory support, currently on 50% FiO2 face mask. Continue broad-spectrum IV antibiotics. This is covering her UTI as well. Change her diet to soft mechanical, seems to be tolerating some snacks without worsening of her abdominal pain. White count is still elevated however steroids may be contributing to this. She is afebrile, her abdominal pain is improving. It is felt that she does not have an acute abdomen at this time. Prognosis remains guarded from a respiratory standpoint. 03/16: She is now 100% nonrebreather. Her abdominal pain has resolved. Her chief issue now is her pulmonary status. She is not in fulminant respiratory distress however she is starting to show increased work of breathing. I asked her to discuss whether or not she wanted to be intubated with her daughter. Hopefully we can avoid this and continue treating the pneumonia along with giving her steroids and diuretics and get her over this. I don't think intubation would be unreasonable to get her through this if she needed it. Current Visit: Yes Qualifiers: Abdominal location: right upper quadrant Qualified Code(s): R10.11 - Right upper quadrant pain Hospitalist: Subjective Interval history: Ms. Rose continues to have difficulty breathing, she is requiring 100% nonrebreather. She is not in any respiratory distress at the moment. Her sats are acceptable. We had discussion about whether or not she is agreeable to intubation should she require this, however she is little unsure of the moment. Her daughter will be in soon to discuss this. Hopefully we can avoid this and continue treating her pneumonia. She is at a dose of Lasix with decent urine output and steroids have been increased, however also continuing her antibiotics. Exam - Constitutional Vitals: Period Temp Pulse Resp BP Sys/Redmond Pulse Ox Last 24 Hr 97.2 F-98 F 90-125 15-34 102-183/53-94 82-97 Exam: EXAM: CONSTITUTIONAL: Ill-appearing, NAD HEENT: NC, AT, OP benign, KAYLYN, EOMI CV: Tachycardic, regular no m/g/r RESP: Diffuse rhonchi is bilaterally GI: abd soft, NT, ND, +bowel sounds INTEGUMENTARY: no lesions or rash EXTREMITIES: no c/c/e NEURO: no focal deficits PSYCH: Awake, alert, pleasant Results - Labs CBC & BMP: 03/16/16 03:08 03/16/16 03:08 Lab Results: I have reviewed the past 24 hour labs - Diagnostic Findings Procedure: Chest x-ray: image reviewed by me, report reviewed by me (chest x- ray appears to me to show worsening bilateral infiltrates)
[2016-03-16] MEDS ORDERED: MORPHINE 2 MG/1 ML SYRINGE IV PRN (11:05)
[2016-03-16] MEDS: ASPIRIN EC 81 MG TABLET PO SCH (11:06)
[2016-03-16] MEDS: ENOXAPARIN 30 MG/0.3 ML SYRINGE SUBCUT SCH ×2 (11:06→21:13)
[2016-03-16] MEDS: CALCIUM (CARBONATE)/VITAMIN D 600 MG-400 UNIT TABLET PO SCH (11:06)
[2016-03-16] MEDS: PANTOPRAZOLE 40 MG TABLET PO SCH (11:07)
[2016-03-16] MEDS: DESITIN 4OZ/NYSTATIN 15 GRAM MIXTURE PASTE TOP SCH ×2 (11:07→21:15)
[2016-03-16] MEDS: PHENAZOPYRIDINE 95 MG TABLET PO SCH (11:07)
[2016-03-16] MEDS: NYSTATIN POWDER 15 GM BOTTLE TOP SCH ×2 (11:07→21:14)
[2016-03-16] MEDS: LISINOPRIL 5 MG TABLET PO SCH (11:07)
[2016-03-16] MEDS: BENZONATATE 100 MG CAPSULE PO SCH ×3 (11:07→21:13)
[2016-03-16] MEDS: GABAPENTIN 100 MG CAPSULE PO SCH ×2 (11:07→21:13)
[2016-03-16] MEDS: LEVOFLOXACIN INJ 250 MG in PREMIX 1 EACH IV SCH (11:10)
--- NOTE | 2016-03-16 11:19 | General Surgery Progress Note ---
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 This does not appear to be perforated freely but there is scattered gas and debris within it. The pancreas adjacent to this is largely absent. I think that intervention on this surgically would be extremely high risk in this elderly frail patient and we will try to manage this conservatively since she appears to be stable at this time. We will start her on IV antibiotics. 03/07: She feels better this morning. 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 She certainly does not have findings consistent with peritonitis. I think that we need to continue IV antibiotics and IV fluids and close observation. We'll consult Hospital medicine to help with her medical problems. She is a poor surgical candidate and hopefully we can avoid surgical intervention. 03/08: She has less abdominal pain and feels and looks better. She is afebrile with stable vital signs. She still has an elevated white blood cell count. Her abdomen is really nontender at this point and it appears to be responding clinically to IV antibiotics. She would be a very poor operative risk for operative intervention in this location. We will continue with medical treatment. 03/10 the abdominal pain is essentially resolved and I do not appreciate any mass effect or tenderness. She has had increased cough and has not had nausea or vomiting. I am continuing IV antibiotics. I'm going to check a follow-up CT scan see if the inflammatory process in her upper abdomen is resolved. 03/11: inflammatory process at 3rd portion duodenum still present but looks better. I suspect duodenal diverticulitis vs focally perforated ulcer. I would be afraid to do EGD. Would cont IV abx for now. WBC decreased. 03/16: She no longer has any abdominal pain or any abdominal symptoms Current Visit: Yes Qualifiers: Abdominal location: right upper quadrant Qualified Code(s): R10.11 - Right upper quadrant pain (2) UTI (urinary tract infection) Status: Acute Assessment and plan: She describes urinary symptoms with dysuria and this is been a frequent recurrent problem for her. Her urinalysis has white cells in the urine and we will check a urine culture. She will be on IV antibiotics. Current Visit: Yes Qualifiers: Urinary tract infection type: acute cystitis Hematuria presence: without hematuria Qualified Code(s): N30.00 - Acute cystitis without hematuria (3) Duodenal diverticulum Status: Acute Assessment and plan: The patient's abdominal symptoms appear better and her diarrhea has subsided. I think this was most likely related to the contrast from her repeat CT scan. It appears that her processes probably an inflamed duodenal diverticulum which is responding to IV antibiotics. From an abdominal standpoint she is doing better and is tolerating by mouth diet and has minimal abdominal pain. Her main complaint is call and chest pain with deep breathing. I suspect that she may have some development of pneumonia. 03/13/16: She really has no abdominal complaints at this point. She denies abdominal pain. She says her main problem for her is cough. I think that her abdominal pain and was probably a inflammatory change around a duodenal diverticulum is subsided. I will be happy to follow along but certainly do not feel that surgical intervention would be helpful this point. 03/14: She denies abdominal pain and I do not think that the duodenal diverticulitis is a factor at this point. Her main issues appear to be pulmonary at this point. I agree with medical management and clearly she would be a very poor candidate for operative intervention. I will continue to follow but I do not see signs of an acute abdomen at this point. This is much better than it was several days ago. 03/15: She has no abdominal pain and her abdomen is nontender. She seems to have her main complaint now be an area and I do not see any signs of acute abdomen. I am available if we have any worsening of her abdominal situation however I do not think that she is an operative candidate 03/16: Her main problem now is cough and respiratory distress. I do not think that her abdomen is factor this point. Current Visit: Yes Subjective Patient reports: Present: shortness of breath. Absent: still having pain, nausea, vomiting Exam - Constitutional Vitals: Period Temp Pulse Resp BP Sys/Redmond Pulse Ox Last 24 Hr 97.2 F-98 F 90-125 15-34 102-183/53-94 82-97 General appearance: mild distress - Eye Eye exam: Absent: scleral icterus - ENT Mouth exam: Present: normal voice - Neck Neck exam: Present: trachea midline - Respiratory Respiratory exam: Present: accessory muscle use - GI/Abdominal GI/Abdominal exam: Present: soft. Absent: distended, tenderness Results - Labs CBC & BMP: 03/16/16 03:08 03/16/16 03:08 Lab Results: I have reviewed the past 24 hour labs
[2016-03-16] MEDS: MORPHINE 2 MG/1 ML SYRINGE IV PRN ×3 (14:30→21:15)
[2016-03-16] MEDS: AMITRIPTYLINE 50 MG TABLET PO SCH (21:13)
[2016-03-16] MEDS: BACLOFEN 20 MG TABLET PO SCH (21:13)
[2016-03-17] MEDS: PIPERACILLIN/TAZOBACTAM 3,375 MG in SODIUM CHLORIDE 0.9% 100 ML IV SCH ×3 (01:11→19:21)
[2016-03-17] MEDS: ALBUTEROL/IPRATROPIUM 3 ML NEB RESP TX SCH ×5 (01:22→19:07)
[2016-03-17 04:54] LABS: Basophils % 0.1 % (0.0-0.8); Hematocrit 36.2 VOL% (35.7-47.0); Hemoglobin 11.8 GM/DL (12.0-16.0); Immature Granulocytes % 2.1 %; Immature Granulocytes Absolute 0.34 #; Lymphocytes # 0.9 10*3/uL (1.4-4.0); Lymphocytes % 5.6 % (21.3-54.2); Mean Corpuscular HGB Conc 32.6 GM/DL (32-36); Mean Corpuscular Hemoglobin 28 PG (27-34); Mean Platelet Volume 10.3 FL (9.6-12.0); Monocytes # 0.5 10*3/uL (0.11-0.8); Monocytes % 2.9 % (1.7-12.7); Neutrophils # 14.8 10*3/uL (1.4-7.4); Neutrophils % 89.3 % (38.7-73.9); Platelet Count 446 T/CUMM (130-400); Red Blood Count 4.26 MC/CUMM (3.8-5.5); Red Cell Distribution Width 15.9 % (9.3-17.3); White Blood Count 16.5 T/CUMM (4-12)
[2016-03-17] MEDS: MORPHINE 2 MG/1 ML SYRINGE IV PRN ×2 (05:13→20:11)
[2016-03-17 05:14] LABS: ABG Base Excess 8.5 MMOL/L (-2.5-2.5); ABG HCO3 32.1 MMOL/L (20-26); ABG Oxygen Saturation 92.9 % (95-100); ABG PCO2 52.1 MM HG (35-48); ABG PH 7.429 (7.35-7.45); ABG PO2 65.5 MM HG (80-95); ABG TCO2 30.5 MMOL/L (23-27)
[2016-03-17 05:34] LABS: Calcium 8.2 MG/DL (8.5-10.1); Magnesium 2.3 MG/DL (1.8-2.4); Osmolality,Calculated 291.6 MOS/KG (273-304); Potassium 3.9 MMOL/L (3.5-5.1)
[2016-03-17] MEDS: POTASSIUM CHLORIDE RIDER 10 MEQ in PREMIX 1 EACH IV PRN ×2 (05:46→06:47)
--- NOTE | 2016-03-17 07:25 | XRay Report ---
XR chest 1V portable Indication: Hypoxemia, SOB, cough Comparison: Chest x-ray dated March 16, 2016 Technique: Single frontal view of the chest Findings: Cardiomediastinal silhouette remains somewhat obscured. Redemonstration of diffuse bilateral pleural-parenchymal abnormality, greatest within the upper lungs. This likely reflects pulmonary consolidation and small pleural fluid. Osseous and surrounding soft tissue structures appear grossly unchanged. IMPRESSION: No significant interval change. PROCEDURE INTERPRETED AT [facility] DEPARTMENT OF RADIOLOGY Final Report Signed by: Dr Henry Kapadia
[2016-03-17] MEDS: methylPREDNISolone SOD SUC 40 MG/1 ML VIAL IV SCH ×2 (08:23→16:06)
[2016-03-17] MEDS: ASPIRIN EC 81 MG TABLET PO SCH (09:25)
[2016-03-17] MEDS: CALCIUM (CARBONATE)/VITAMIN D 600 MG-400 UNIT TABLET PO SCH (09:26)
[2016-03-17] MEDS: LISINOPRIL 5 MG TABLET PO SCH (09:27)
[2016-03-17] MEDS: NYSTATIN POWDER 15 GM BOTTLE TOP SCH ×2 (09:27→20:19)
[2016-03-17] MEDS: GABAPENTIN 100 MG CAPSULE PO SCH ×2 (09:27→20:10)
[2016-03-17] MEDS: PANTOPRAZOLE 40 MG TABLET PO SCH (09:28)
[2016-03-17] MEDS: PHENAZOPYRIDINE 95 MG TABLET PO SCH (09:28)
[2016-03-17] MEDS: BENZONATATE 100 MG CAPSULE PO SCH ×3 (09:29→20:10)
[2016-03-17] MEDS: CLORAZEPATE 3.75 MG TABLET PO PRN ×2 (09:29→19:33)
[2016-03-17] MEDS: DESITIN 4OZ/NYSTATIN 15 GRAM MIXTURE PASTE TOP SCH ×2 (09:30→20:19)
--- NOTE | 2016-03-17 09:41 | Hospitalist Progress Note ---
Assessment and Plan (1) Acute respiratory failure with hypoxia Status: Acute Current Visit: Yes (2) Bilateral pneumonia Status: Acute Current Visit: Yes (3) UTI (urinary tract infection) Status: Acute Current Visit: Yes Qualifiers: Urinary tract infection type: acute cystitis Hematuria presence: without hematuria Qualified Code(s): N30.00 - Acute cystitis without hematuria (4) Duodenal diverticulum Status: Acute Current Visit: Yes (5) Abdominal pain Status: Acute Assessment and plan: Plan: 03/15: She still requiring a fair bit of respiratory support, currently on 50% FiO2 face mask. Continue broad-spectrum IV antibiotics. This is covering her UTI as well. Change her diet to soft mechanical, seems to be tolerating some snacks without worsening of her abdominal pain. White count is still elevated however steroids may be contributing to this. She is afebrile, her abdominal pain is improving. It is felt that she does not have an acute abdomen at this time. Prognosis remains guarded from a respiratory standpoint. 03/16: She is now 100% nonrebreather. Her abdominal pain has resolved. Her chief issue now is her pulmonary status. She is not in fulminant respiratory distress however she is starting to show increased work of breathing. I asked her to discuss whether or not she wanted to be intubated with her daughter. Hopefully we can avoid this and continue treating the pneumonia along with giving her steroids and diuretics and get her over this. I don't think intubation would be unreasonable to get her through this if she needed it. 03/17: Still requiring 100% nonrebreather. Still increased work of breathing however no fulminant respiratory distress. She does not want to be intubated. We'll give her a dose of diuretic today. She is on broad-spectrum antibiotics, white count seems to be trending down. Unclear if she will benefit from bronchoscopy, we'll defer to pulmonology. Current Visit: Yes Qualifiers: Abdominal location: right upper quadrant Qualified Code(s): R10.11 - Right upper quadrant pain Hospitalist: Subjective Interval history: Ms. Rose continues on 100% nonrebreather. She is not in fulminant respiratory distress. She had a discussion with her daughters yesterday and does not want to be on life support. We'll change CODE STATUS to DO NOT RESUSCITATE. Her chest x-ray continues to show bilateral infiltrates/edema with minimal if any improvement. She is on broad-spectrum antibiotics. Sputum cultures thus far negative. Echo shows preserved EF. Exam - Constitutional Vitals: Period Temp Pulse Resp BP Sys/Redmond Pulse Ox Last 24 Hr 96.2 F-98.3 F 93-108 12-28 98-160/57-84 77-98 Exam: EXAM: CONSTITUTIONAL: Ill-appearing, NAD HEENT: NC, AT, OP benign, KAYLYN, EOMI CV: Tachycardic, regular no m/g/r RESP: Diffuse rhonchi bilaterally GI: abd soft, NT, ND, +bowel sounds INTEGUMENTARY: no lesions or rash EXTREMITIES: no c/c/e NEURO: no focal deficits PSYCH: Awake, alert, pleasant Results - Labs CBC & BMP: 03/17/16 03:58 03/17/16 03:58 Lab Results: I have reviewed the past 24 hour labs - Diagnostic Findings Procedure: Chest x-ray: image reviewed by me, report reviewed by me
[2016-03-17] MEDS: ENOXAPARIN 30 MG/0.3 ML SYRINGE SUBCUT SCH ×2 (09:43→12:23)
--- NOTE | 2016-03-17 09:53 | Physician Query Form ---
CLICK EDIT DOCUMENT TO SELECT QUERY ANSWER --> OK --> SIGN Marixa Moya RN Clinical Frame Table Operator W) [phone] (f) [phone] [email or web address] PROVIDERS: Make your selection(s) from the choices in EACH section by typing an "x" and enter comments in the comment section. Please use your independent medical judgment in providing your response. This request does not imply that any particular answer is desired or expected. CLINICAL INDICATORS: (Providers should not edit this section) Based on documentation of " I felt like we were dealing with mild congestive heart failure. Her BNP was elevated. She was started on Lasix 20 IV push 3 times daily". TGW=[id number], echo showed EF of 55-60% with Grade I/IV diastolic dysfunction. Please provide further specificity regarding CHF. ACUITY: ( ) Acute ( ) Chronic ( x) Acute on Chronic ( ) Clinicallly unable to determine TYPE: ( ) Systolic ( x) Diastolic ( ) Combined Systolic/Diastolic ( ) Other, please specify: ( ) Clinically unable to determine ( ) The patient does NOT have CHF COMMENTS: Use of terms such as suspected, likely, or probable (associated with a specific diagnosis that is being evaluated, monitored, or treated as if it exists) are acceptable and can be restated in the discharge summary if not ruled out. MTDD
[2016-03-17] MEDS ORDERED: FUROSEMIDE 40 MG/4 ML VIAL IV ONE (10:17)
--- NOTE | 2016-03-17 10:54 | Pulmonology Progress Note ---
Pulmonary - PN: Subj Interval history: This is a 86-year-old white female whom I saw in pulmonary consultation on the night of 03/13/2016. Patient's main problems appear to be. 1. Admission 03/06/2016 for acute abdominal pain that was thought to be an infected duodenal diverticulum. This is resolving. She does have a remaining elevated white blood cell count. 2. Abnormal chest x-ray with progressive hypoxemia. I felt like we were dealing with mild congestive heart failure. Her BNP was elevated. She was started on Lasix 20 IV push 3 times daily. Chest x-rays a little better today ( 03/14/2016) but still abnormal. Her BNP is fallen to a normal level. Her creatinine is increased from 0.8-1.0. I have stopped her Lasix. Chest x-ray shows some scattered infiltrates which are most prominent in both upper lungs. There is no atelectasis associated with this. Today the patient is a better historian. She gave us a history of esophageal stricture. She denies solid dysphasia at the present time. She has chronic daily reflux up into her throat. I think there is a good chance we are dealing with the consequences of aspiration. We could be looking at aspiration pneumonia with superimposed bacterial pneumonia. At this point the patient looks too fragile to electively evaluate with fiberoptic bronchoscopy. She has improved. We will continue her inhalation therapy antibiotics and expectorants. Will take reflux precautions. I have started 20 mg once a day. I am reluctant to go higher in light of the recent abdominal infection. 3. Hypokalemia. Corrected. 4. Past history of high blood pressure, anxiety disorder, recurrent urinary tract infection, arthritis, cholecystectomy, diverticulosis. Also hiatal hernia and gastroesophageal reflux disease and esophageal stricture. There is also a past history of 3 elevated PTH Electrolytes are normal. Creatinine is 1.0. ABGs on 100% oxygen shows a pH of 7.408, PCO2 is 45.9. PO2 is 56.2. Bicarb is 27.4. White count is 17,400. H& H is stable at 12.8/37.6. Platelets 335,000. Natruretic peptide is dropped from 542-170. Microbiology is negative so far. 03/17/2016. This patient has now been made a DO NOT RESUSCITATE. Her chest x- ray shows fairly dense bilateral upper lung infiltrates. Urine cultures have grown E. coli. Fortaz has been started. Levaquin has been stopped. Patient remains on Zosyn for her abdominal infection. All: Cultures were negative. I did not see any blood cultures reported. BNP is 60. ABGs on FiO2 of 100% show a pH of 7.43. PCO2 is 52.1. PO2 is 65.5. Bicarb is 32.1. Electrolytes are normal. White blood cell count is dropped to 16,500 with 89% segs. H&H 11.8/ 36.2. Platelets of 446,000 she has a history of reflux and microaspiration. Of aspiration was a problem I would expect her to be more lower lung findings. I think we are probably dealing with adult respiratory distress syndrome. This may be secondary to sepsis but we need to keep other possibilities in mind. Over the weekend her Solu-Medrol was increased to 40 mg IV push every 8 hours. I agree with this. Physical exam. Vital signs see above Psychiatric. Much more alert today and able to give us some history. Neurological. Cranial nerves are intact with marked decreased hearing acuity bilaterally patient moves all 4 extremities Neck. Symmetrical. No meningismus Lymphatics no submandibular cervical supraclavicular or epitrochlear adenopathy Chest. 100% clear Heart. No gallop Abdomen. Few bowel sounds are heard in all quadrants. Lower extremities. Nothing to suggest deep venous thrombophlebitis. Note the Doppler venograms of the lower extremities are negative for deep venous thrombophlebitis. Plan. 1. Antibiotics. 2. Low dose steroids. Watch abdomen. 3. Deep venous thrombophlebitis prophylaxis 4. Cultures 5. Continue antibiotics and inhalation therapy. 6. Daily chest x-ray ABGs and lab 7. Dr. Charles Sterling son and I have discussed the case and coordinated care 8. 03/17/2016. Bilateral upper lung infiltrates. Adult respiratory distress syndrome versus pneumonia. E. coli urinary tract infection. Requires 100% oxygen. Has been made a DO NOT RESUSCITATE. Exam (Progress Note) - Constitutional Vitals: Period Temp Pulse Resp BP Sys/Redmond Pulse Ox Last 24 Hr 96.2 F-98.3 F 93-108 12-28 98-160/62-84 77-98 Results - Labs CBC & BMP: 03/17/16 03:58 03/17/16 03:58
[2016-03-17] MEDS: cefTAZidime 500 MG in SODIUM CHLORIDE 0.9% 100 ML IV SCH ×2 (12:23→20:46)
--- NOTE | 2016-03-17 15:55 | General Surgery Progress Note ---
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 This does not appear to be perforated freely but there is scattered gas and debris within it. The pancreas adjacent to this is largely absent. I think that intervention on this surgically would be extremely high risk in this elderly frail patient and we will try to manage this conservatively since she appears to be stable at this time. We will start her on IV antibiotics. 03/07: She feels better this morning. 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 She certainly does not have findings consistent with peritonitis. I think that we need to continue IV antibiotics and IV fluids and close observation. We'll consult Hospital medicine to help with her medical problems. She is a poor surgical candidate and hopefully we can avoid surgical intervention. 03/08: She has less abdominal pain and feels and looks better. She is afebrile with stable vital signs. She still has an elevated white blood cell count. Her abdomen is really nontender at this point and it appears to be responding clinically to IV antibiotics. She would be a very poor operative risk for operative intervention in this location. We will continue with medical treatment. 03/10 the abdominal pain is essentially resolved and I do not appreciate any mass effect or tenderness. She has had increased cough and has not had nausea or vomiting. I am continuing IV antibiotics. I'm going to check a follow-up CT scan see if the inflammatory process in her upper abdomen is resolved. 03/11: inflammatory process at 3rd portion duodenum still present but looks better. I suspect duodenal diverticulitis vs focally perforated ulcer. I would be afraid to do EGD. Would cont IV abx for now. WBC decreased. 03/16: She no longer has any abdominal pain or any abdominal symptoms 03/17: She no longer has any abdominal pain or abdominal symptoms in her main issue is pulmonary. I have nothing to offer at this point surgically and we'll see about handing off her care to the medical service. Current Visit: Yes Qualifiers: Abdominal location: right upper quadrant Qualified Code(s): R10.11 - Right upper quadrant pain (2) UTI (urinary tract infection) Status: Acute Assessment and plan: She describes urinary symptoms with dysuria and this is been a frequent recurrent problem for her. Her urinalysis has white cells in the urine and we will check a urine culture. She will be on IV antibiotics. Current Visit: Yes Qualifiers: Urinary tract infection type: acute cystitis Hematuria presence: without hematuria Qualified Code(s): N30.00 - Acute cystitis without hematuria (3) Duodenal diverticulum Status: Acute Assessment and plan: The patient's abdominal symptoms appear better and her diarrhea has subsided. I think this was most likely related to the contrast from her repeat CT scan. It appears that her processes probably an inflamed duodenal diverticulum which is responding to IV antibiotics. From an abdominal standpoint she is doing better and is tolerating by mouth diet and has minimal abdominal pain. Her main complaint is call and chest pain with deep breathing. I suspect that she may have some development of pneumonia. 03/13/16: She really has no abdominal complaints at this point. She denies abdominal pain. She says her main problem for her is cough. I think that her abdominal pain and was probably a inflammatory change around a duodenal diverticulum is subsided. I will be happy to follow along but certainly do not feel that surgical intervention would be helpful this point. 03/14: She denies abdominal pain and I do not think that the duodenal diverticulitis is a factor at this point. Her main issues appear to be pulmonary at this point. I agree with medical management and clearly she would be a very poor candidate for operative intervention. I will continue to follow but I do not see signs of an acute abdomen at this point. This is much better than it was several days ago. 03/15: She has no abdominal pain and her abdomen is nontender. She seems to have her main complaint now be an area and I do not see any signs of acute abdomen. I am available if we have any worsening of her abdominal situation however I do not think that she is an operative candidate 03/16: Her main problem now is cough and respiratory distress. I do not think that her abdomen is factor this point. Current Visit: Yes Subjective Patient reports: Present: no new complaints, shortness of breath. Absent: still having pain Exam - Constitutional Vitals: Period Temp Pulse Resp BP Sys/Redmond Pulse Ox Last 24 Hr 96.0 F-97.4 F 93-110 12-27 98-158/45-84 77-97 General appearance: mild distress - Respiratory Respiratory exam: Present: accessory muscle use - GI/Abdominal GI/Abdominal exam: Present: soft. Absent: distended, tenderness Results - Labs CBC & BMP: 03/17/16 03:58 03/17/16 03:58 Lab Results: I have reviewed the past 24 hour labs
[2016-03-17] MEDS: BACLOFEN 20 MG TABLET PO SCH (20:10)
[2016-03-17] MEDS: AMITRIPTYLINE 50 MG TABLET PO SCH (20:10)
[2016-03-18] MEDS: methylPREDNISolone SOD SUC 40 MG/1 ML VIAL IV SCH ×4 (01:00→23:51)
[2016-03-18] MEDS: PIPERACILLIN/TAZOBACTAM 3,375 MG in SODIUM CHLORIDE 0.9% 100 ML IV SCH ×3 (01:02→19:07)
[2016-03-18] MEDS: MORPHINE 2 MG/1 ML SYRINGE IV PRN ×3 (01:05→20:29)
[2016-03-18] MEDS: ALBUTEROL/IPRATROPIUM 3 ML NEB RESP TX SCH ×4 (01:50→19:39)
[2016-03-18] MEDS: cefTAZidime 500 MG in SODIUM CHLORIDE 0.9% 100 ML IV SCH ×3 (03:16→20:28)
[2016-03-18 03:41] LABS: ABG Base Excess 10.3 MMOL/L (-2.5-2.5); ABG HCO3 35.1 MMOL/L (20-26); ABG Oxygen Saturation 90.7 % (95-100); ABG PCO2 47.5 MM HG (35-48); ABG PH 7.487 (7.35-7.45); ABG PO2 59.2 MM HG (80-95); ABG TCO2 36.6 MMOL/L (23-27); Allen Test Positive; Pt O2 Delivery Device Venturi Mask
[2016-03-18 04:15] LABS: Basophils % 0.2 % (0.0-0.8); Hematocrit 39.1 VOL% (35.7-47.0); Hemoglobin 12.1 GM/DL (12.0-16.0); Immature Granulocytes % 3.2 %; Immature Granulocytes Absolute 0.58 #; Lymphocytes # 1.3 10*3/uL (1.4-4.0); Lymphocytes % 6.9 % (21.3-54.2); Mean Corpuscular HGB Conc 30.9 GM/DL (32-36); Mean Corpuscular Hemoglobin 27 PG (27-34); Mean Corpuscular Volume 86.9 FL (87-102); Mean Platelet Volume 9.9 FL (9.6-12.0); Monocytes # 0.8 10*3/uL (0.11-0.8); Monocytes % 4.5 % (1.7-12.7); Neutrophils # 15.6 10*3/uL (1.4-7.4); Neutrophils % 85.2 % (38.7-73.9); Platelet Count 492 T/CUMM (130-400); Red Cell Distribution Width 15.9 % (9.3-17.3); White Blood Count 18.3 T/CUMM (4-12)
[2016-03-18] MEDS: CLORAZEPATE 3.75 MG TABLET PO PRN ×2 (04:38→16:10)
[2016-03-18 04:41] LABS: Calcium 8.8 MG/DL (8.5-10.1); Magnesium 2.4 MG/DL (1.8-2.4); Osmolality,Calculated 296.3 MOS/KG (273-304); Potassium 3.7 MMOL/L (3.5-5.1)
[2016-03-18 04:42] LABS: Hypochromasia 1+; Lymphocytes 7 % (20-55); Platelet Estimate Adequate; Segmented Neutrophils 90 % (50-85); Total Cells Counted 100
[2016-03-18] MEDS: POTASSIUM CHLORIDE RIDER 10 MEQ in PREMIX 1 EACH IV PRN ×2 (05:20→06:24)
--- NOTE | 2016-03-18 07:54 | XRay Report ---
XR chest 1V portable Indication: Followup pneumonia, hypoxemia Comparison: Chest x-ray dated December 15, 2016 Technique: Single frontal view of the chest Findings: Cardiomediastinal silhouette appears grossly unchanged but remains somewhat obscured. Interval improved right upper lung and right basilar opacification suggesting improved pneumonia with some residual remaining. No significant change in left upper lung and left basilar opacification. There is probable small left pleural fluid. Osseous and surrounding soft tissue structures appear grossly unchanged. IMPRESSION: As above. PROCEDURE INTERPRETED AT [facility] DEPARTMENT OF RADIOLOGY Final Report Signed by: Dr Henry Kapadia
--- NOTE | 2016-03-18 08:52 | Hospitalist Progress Note ---
Assessment and Plan (1) Acute respiratory failure with hypoxia Status: Acute Current Visit: Yes (2) Bilateral pneumonia Status: Acute Current Visit: Yes (3) UTI (urinary tract infection) Status: Acute Current Visit: Yes Qualifiers: Urinary tract infection type: acute cystitis Hematuria presence: without hematuria Qualified Code(s): N30.00 - Acute cystitis without hematuria (4) Duodenal diverticulum Status: Acute Current Visit: Yes (5) Abdominal pain Status: Resolved Assessment and plan: Plan: 03/15: She still requiring a fair bit of respiratory support, currently on 50% FiO2 face mask. Continue broad-spectrum IV antibiotics. This is covering her UTI as well. Change her diet to soft mechanical, seems to be tolerating some snacks without worsening of her abdominal pain. White count is still elevated however steroids may be contributing to this. She is afebrile, her abdominal pain is improving. It is felt that she does not have an acute abdomen at this time. Prognosis remains guarded from a respiratory standpoint. 03/16: She is now 100% nonrebreather. Her abdominal pain has resolved. Her chief issue now is her pulmonary status. She is not in fulminant respiratory distress however she is starting to show increased work of breathing. I asked her to discuss whether or not she wanted to be intubated with her daughter. Hopefully we can avoid this and continue treating the pneumonia along with giving her steroids and diuretics and get her over this. I don't think intubation would be unreasonable to get her through this if she needed it. 03/17: Still requiring 100% nonrebreather. Still increased work of breathing however no fulminant respiratory distress. She does not want to be intubated. We'll give her a dose of diuretic today. She is on broad-spectrum antibiotics, white count seems to be trending down. Unclear if she will benefit from bronchoscopy, we'll defer to pulmonology. 03/18: Was able to tolerate a little less oxygen last night. Continue broad- spectrum antibiotics, white count slowly improving. May diuresis her again today. Current Visit: Yes Qualifiers: Abdominal location: right upper quadrant Qualified Code(s): R10.11 - Right upper quadrant pain Hospitalist: Subjective Interval history: Ms. Rose is eating breakfast and despite having her oxygen off with a sat of 77 %, she looks reasonably comfortable. Chest x-ray seems to show mild improvement. She tolerated 50% FiO2 face mask for a while last night but is now back on her percent nonrebreather. Exam - Constitutional Vitals: Period Temp Pulse Resp BP Sys/Redmond Pulse Ox Last 24 Hr 97.1 F-98.6 F 94-120 14-29 105-183/45-94 83-98 Exam: EXAM: CONSTITUTIONAL: Ill-appearing, NAD HEENT: NC, AT, OP benign, KAYLYN, EOMI CV: Tachycardic, regular no m/g/r RESP: Diffuse rhonchi bilaterally GI: abd soft, NT, ND, +bowel sounds INTEGUMENTARY: no lesions or rash EXTREMITIES: no c/c/e NEURO: no focal deficits PSYCH: Awake, alert, pleasant Results - Labs CBC & BMP: 03/18/16 03:36 03/18/16 03:36 Lab Results: I have reviewed the past 24 hour labs - Diagnostic Findings Procedure: Chest x-ray: image reviewed by me, report reviewed by me
[2016-03-18] MEDS ORDERED: FUROSEMIDE 40 MG/4 ML VIAL IV ONE (08:53)
[2016-03-18] MEDS: PANTOPRAZOLE 40 MG TABLET PO SCH (09:46)
[2016-03-18] MEDS: GABAPENTIN 100 MG CAPSULE PO SCH ×2 (09:46→20:28)
[2016-03-18] MEDS: NYSTATIN POWDER 15 GM BOTTLE TOP SCH ×2 (09:47→20:30)
[2016-03-18] MEDS: CALCIUM (CARBONATE)/VITAMIN D 600 MG-400 UNIT TABLET PO SCH (09:47)
[2016-03-18] MEDS: ASPIRIN EC 81 MG TABLET PO SCH (09:47)
[2016-03-18] MEDS: PHENAZOPYRIDINE 95 MG TABLET PO SCH (09:48)
[2016-03-18] MEDS: DESITIN 4OZ/NYSTATIN 15 GRAM MIXTURE PASTE TOP SCH ×2 (09:48→20:31)
[2016-03-18] MEDS: BENZONATATE 100 MG CAPSULE PO SCH ×3 (09:48→20:29)
[2016-03-18] MEDS: LISINOPRIL 5 MG TABLET PO SCH (09:49)
--- NOTE | 2016-03-18 11:31 | Pulmonology Progress Note ---
Pulmonary - PN: Subj Interval history: This is a 86-year-old white female whom I saw in pulmonary consultation on the night of 03/13/2016. Patient's main problems appear to be. 1. Admission 03/06/2016 for acute abdominal pain that was thought to be an infected duodenal diverticulum. This is resolving. She does have a remaining elevated white blood cell count. 2. Abnormal chest x-ray with progressive hypoxemia. I felt like we were dealing with mild congestive heart failure. Her BNP was elevated. She was started on Lasix 20 IV push 3 times daily. Chest x-rays a little better today ( 03/14/2016) but still abnormal. Her BNP is fallen to a normal level. Her creatinine is increased from 0.8-1.0. I have stopped her Lasix. Chest x-ray shows some scattered infiltrates which are most prominent in both upper lungs. There is no atelectasis associated with this. Today the patient is a better historian. She gave us a history of esophageal stricture. She denies solid dysphasia at the present time. She has chronic daily reflux up into her throat. I think there is a good chance we are dealing with the consequences of aspiration. We could be looking at aspiration pneumonia with superimposed bacterial pneumonia. At this point the patient looks too fragile to electively evaluate with fiberoptic bronchoscopy. She has improved. We will continue her inhalation therapy antibiotics and expectorants. Will take reflux precautions. I have started 20 mg once a day. I am reluctant to go higher in light of the recent abdominal infection. 3. Hypokalemia. Corrected. 4. Past history of high blood pressure, anxiety disorder, recurrent urinary tract infection, arthritis, cholecystectomy, diverticulosis. Also hiatal hernia and gastroesophageal reflux disease and esophageal stricture. There is also a past history of 3 elevated PTH Electrolytes are normal. Creatinine is 1.0. ABGs on 100% oxygen shows a pH of 7.408, PCO2 is 45.9. PO2 is 56.2. Bicarb is 27.4. White count is 17,400. H& H is stable at 12.8/37.6. Platelets 335,000. Natruretic peptide is dropped from 542-170. Microbiology is negative so far. 03/17/2016. This patient has now been made a DO NOT RESUSCITATE. Her chest x- ray shows fairly dense bilateral upper lung infiltrates. Urine cultures have grown E. coli. Fortaz has been started. Levaquin has been stopped. Patient remains on Zosyn for her abdominal infection. All: Cultures were negative. I did not see any blood cultures reported. BNP is 60. ABGs on FiO2 of 100% show a pH of 7.43. PCO2 is 52.1. PO2 is 65.5. Bicarb is 32.1. Electrolytes are normal. White blood cell count is dropped to 16,500 with 89% segs. H&H 11.8/ 36.2. Platelets of 446,000 she has a history of reflux and microaspiration. Of aspiration was a problem I would expect her to be more lower lung findings. I think we are probably dealing with adult respiratory distress syndrome. This may be secondary to sepsis but we need to keep other possibilities in mind. Over the weekend her Solu-Medrol was increased to 40 mg IV push every 8 hours. I agree with this. 03/18/2016. Patient's oxygenation has improved today. She may have aspirated a soft drink and we had to increase her FiO2. Chest x-ray is beginning to show some clearing of the bilateral upper lung alveolar infiltrates with air bronchograms. Electrolytes are close to normal. Sodium is 148. CBC is stable with a white count of 18,300. Most recent natruretic peptide was 60. Patient is definitely more alert and appears stronger today she is still significantly sick and I think we should keep her in CCU a little bit longer. She however looks like she is turning the corner and getting better. There are no positive cultures Physical exam. Vital signs see above Psychiatric. Much more alert today and able to give us some history. Neurological. Cranial nerves are intact with marked decreased hearing acuity bilaterally patient moves all 4 extremities Neck. Symmetrical. No meningismus Lymphatics no submandibular cervical supraclavicular or epitrochlear adenopathy Chest. 100% clear Heart. No gallop Abdomen. Few bowel sounds are heard in all quadrants. Lower extremities. Nothing to suggest deep venous thrombophlebitis. Note the Doppler venograms of the lower extremities are negative for deep venous thrombophlebitis. Plan. 1. Antibiotics. 2. Low dose steroids. Watch abdomen. 3. Deep venous thrombophlebitis prophylaxis 4. Cultures 5. Continue antibiotics and inhalation therapy. 6. Daily chest x-ray ABGs and lab 7. Dr. Charles Sterling son and I have discussed the case and coordinated care 8. 03/17/2016. Bilateral upper lung infiltrates. Adult respiratory distress syndrome versus pneumonia. E. coli urinary tract infection. Requires 100% oxygen. Has been made a DO NOT RESUSCITATE. 9. 03/18/2016. See my note above for today. X-ray better. Oxygenation better. May be turning the corner. Exam (Progress Note) - Constitutional Vitals: Period Temp Pulse Resp BP Sys/Redmond Pulse Ox Last 24 Hr 97.1 F-98.6 F 93-120 14-29 105-183/45-94 74-98 Results - Labs CBC & BMP: 03/18/16 03:36 03/18/16 03:36
[2016-03-18] MEDS: ENOXAPARIN 30 MG/0.3 ML SYRINGE SUBCUT SCH (14:18)
[2016-03-18] MEDS: AMITRIPTYLINE 50 MG TABLET PO SCH (20:28)
[2016-03-18] MEDS: BACLOFEN 20 MG TABLET PO SCH (20:28)
[2016-03-19] MEDS: ALBUTEROL/IPRATROPIUM 3 ML NEB RESP TX SCH ×4 (01:14→19:44)
[2016-03-19] MEDS: cefTAZidime 500 MG in SODIUM CHLORIDE 0.9% 100 ML IV SCH ×3 (02:30→18:40)
[2016-03-19] MEDS: PIPERACILLIN/TAZOBACTAM 3,375 MG in SODIUM CHLORIDE 0.9% 100 ML IV SCH ×3 (03:00→17:12)
[2016-03-19 03:55] LABS: ABG Base Excess 11.6 MMOL/L (-2.5-2.5); ABG HCO3 35.5 MMOL/L (20-26); ABG Oxygen Saturation 87.4 % (95-100); ABG PCO2 43.5 MM HG (35-48); ABG PO2 51.1 MM HG (80-95); ABG TCO2 36.9 MMOL/L (23-27); Allen Test Positive
[2016-03-19] MEDS: MORPHINE 2 MG/1 ML SYRINGE IV PRN ×4 (04:29→16:14)
[2016-03-19] MEDS: CLORAZEPATE 3.75 MG TABLET PO PRN ×3 (06:09→21:27)
[2016-03-19] MEDS: ONDANSETRON 4 MG/2 ML VIAL IV PRN ×2 (08:30→14:00)
--- NOTE | 2016-03-19 08:48 | XRay Report ---
XR chest 1V portable Indication: Pneumonia, hypoxemia Comparison: 18 March 2016 Findings: The heart and mediastinum are normal in size and configuration. The pulmonary vascularity is normal in caliber. Pulmonary densities are most previous exam have improved slightly. No other lung infiltrates, effusions, pneumothorax or other abnormality is demonstrated. Impression: Improving pulmonary densities when compared to previous exam, no other interval changes. PROCEDURE INTERPRETED AT [facility] DEPARTMENT OF RADIOLOGY Final Report Signed by: Dr. Robby Fitzgerald
[2016-03-19] MEDS: GABAPENTIN 100 MG CAPSULE PO SCH ×2 (10:18→21:17)
[2016-03-19] MEDS: NYSTATIN POWDER 15 GM BOTTLE TOP SCH ×2 (10:18→21:19)
[2016-03-19] MEDS: ASPIRIN EC 81 MG TABLET PO SCH (10:18)
[2016-03-19] MEDS: LISINOPRIL 5 MG TABLET PO SCH (10:18)
[2016-03-19] MEDS: methylPREDNISolone SOD SUC 40 MG/1 ML VIAL IV SCH ×2 (10:18→15:26)
[2016-03-19] MEDS: CALCIUM (CARBONATE)/VITAMIN D 600 MG-400 UNIT TABLET PO SCH (10:18)
[2016-03-19] MEDS: DESITIN 4OZ/NYSTATIN 15 GRAM MIXTURE PASTE TOP SCH ×2 (10:19→21:20)
[2016-03-19] MEDS: PANTOPRAZOLE 40 MG TABLET PO SCH (10:19)
[2016-03-19] MEDS: BENZONATATE 100 MG CAPSULE PO SCH ×3 (10:19→21:16)
[2016-03-19] MEDS: PHENAZOPYRIDINE 95 MG TABLET PO SCH (10:19)
--- NOTE | 2016-03-19 11:09 | Hospitalist Progress Note ---
Assessment and Plan - Time spent with patient Time spent with patient: (improving infiltrate) (1) Duodenal diverticulum Status: Acute Current Visit: Yes (2) Bilateral pneumonia Status: Acute Assessment and plan: The patient is improving slowly from her pneumonia. Dr. Colvin as suggested swallowing study. The patient will continue in the intensive care unit today. I anticipate transfer to the floor tomorrow. Current Visit: Yes Qualifiers: Pneumonia type: due to Pneumococcus Lung location: lower lobe of lung Qualified Code(s): J13 - Pneumonia due to Streptococcus pneumoniae (3) Acute respiratory failure with hypoxia Status: Acute Current Visit: Yes Hospitalist: Subjective Interval history: Mrs. Rose is resting quietly in bed today. She says she has less shortness of breath. She has some pain with cough between the clavicles. The patient says she feels better today than she did yesterday. Exam - Constitutional Vitals: Period Temp Pulse Resp BP Sys/Redmond Pulse Ox Last 24 Hr 97.0 F-98.1 F 92-133 15-27 113-163/63-92 86-98 General appearance: mild distress - Respiratory Respiratory exam: Present: chest wall tenderness, decreased breath sounds - Cardiovascular Cardiovascular exam: Present: regular rate and rhythm Results - Labs CBC & BMP: 03/18/16 03:36 03/18/16 03:36 Lab Results: I have reviewed the past 24 hour labs - Diagnostic Findings Procedure: Chest x-ray: image reviewed by me
--- NOTE | 2016-03-19 11:11 | Pulmonology Progress Note ---
<Hamilton Ramirez - Last Filed: 03/19/16 11:11> Exam (Progress Note) - Constitutional Vitals: Period Temp Pulse Resp BP Sys/Redmond Pulse Ox Last 24 Hr 97.0 F-98.1 F 92-133 15-27 113-163/63-92 86-98 Results - Labs CBC & BMP: 03/18/16 03:36 03/18/16 03:36 <Modesto Lopez - Last Filed: 03/19/16 17:52> Pulmonary - PN: Subj Interval history: This is a 86-year-old white female whom I saw in pulmonary consultation on the night of 03/13/2016. Patient's main problems appear to be. 1. Admission 03/06/2016 for acute abdominal pain that was thought to be an infected duodenal diverticulum. This is resolving. She does have a remaining elevated white blood cell count. 2. Abnormal chest x-ray with progressive hypoxemia. I felt like we were dealing with mild congestive heart failure. Her BNP was elevated. She was started on Lasix 20 IV push 3 times daily. Chest x-rays a little better today ( 03/14/2016) but still abnormal. Her BNP is fallen to a normal level. Her creatinine is increased from 0.8-1.0. I have stopped her Lasix. Chest x-ray shows some scattered infiltrates which are most prominent in both upper lungs. There is no atelectasis associated with this. Today the patient is a better historian. She gave us a history of esophageal stricture. She denies solid dysphasia at the present time. She has chronic daily reflux up into her throat. I think there is a good chance we are dealing with the consequences of aspiration. We could be looking at aspiration pneumonia with superimposed bacterial pneumonia. At this point the patient looks too fragile to electively evaluate with fiberoptic bronchoscopy. She has improved. We will continue her inhalation therapy antibiotics and expectorants. Will take reflux precautions. I have started 20 mg once a day. I am reluctant to go higher in light of the recent abdominal infection. 3. Hypokalemia. Corrected. 4. Past history of high blood pressure, anxiety disorder, recurrent urinary tract infection, arthritis, cholecystectomy, diverticulosis. Also hiatal hernia and gastroesophageal reflux disease and esophageal stricture. There is also a past history of 3 elevated PTH Electrolytes are normal. Creatinine is 1.0. ABGs on 100% oxygen shows a pH of 7.408, PCO2 is 45.9. PO2 is 56.2. Bicarb is 27.4. White count is 17,400. H& H is stable at 12.8/37.6. Platelets 335,000. Natruretic peptide is dropped from 542-170. Microbiology is negative so far. 03/17/2016. This patient has now been made a DO NOT RESUSCITATE. Her chest x- ray shows fairly dense bilateral upper lung infiltrates. Urine cultures have grown E. coli. Fortaz has been started. Levaquin has been stopped. Patient remains on Zosyn for her abdominal infection. All: Cultures were negative. I did not see any blood cultures reported. BNP is 60. ABGs on FiO2 of 100% show a pH of 7.43. PCO2 is 52.1. PO2 is 65.5. Bicarb is 32.1. Electrolytes are normal. White blood cell count is dropped to 16,500 with 89% segs. H&H 11.8/ 36.2. Platelets of 446,000 she has a history of reflux and microaspiration. Of aspiration was a problem I would expect her to be more lower lung findings. I think we are probably dealing with adult respiratory distress syndrome. This may be secondary to sepsis but we need to keep other possibilities in mind. Over the weekend her Solu-Medrol was increased to 40 mg IV push every 8 hours. I agree with this. 03/18/2016. Patient's oxygenation has improved today. She may have aspirated a soft drink and we had to increase her FiO2. Chest x-ray is beginning to show some clearing of the bilateral upper lung alveolar infiltrates with air bronchograms. Electrolytes are close to normal. Sodium is 148. CBC is stable with a white count of 18,300. Most recent natruretic peptide was 60. Patient is definitely more alert and appears stronger today she is still significantly sick and I think we should keep her in CCU a little bit longer. She however looks like she is turning the corner and getting better. There are no positive cultures FiO2 has been lowered to 40% and ABGs show pH 7.53. PCO2 is 43.5. PO2 is 51.1. Bicarb is 35.5. Medicines have been reviewed. 03/19/2016. Patient's chest x-ray continues to slowly improve. Dense alveolar infiltrates in both upper lungs are gradually resolving. ABGs on FiO2 of 40% shows a pH 7.53. PCO2 43.5. PO2 51.1. Bicarb 35.5. Medicines been reviewed. Labs been reviewed. Patient looks stronger and more alert. I think we should try to keep her sats are 95% or above. This is not a significant CO2 retainer. Physical exam. Vital signs see above Psychiatric. Much more alert today and able to give us some history. Neurological. Cranial nerves are intact with marked decreased hearing acuity bilaterally patient moves all 4 extremities Neck. Symmetrical. No meningismus Lymphatics no submandibular cervical supraclavicular or epitrochlear adenopathy Chest. 100% clear Heart. No gallop Abdomen. Few bowel sounds are heard in all quadrants. Lower extremities. Nothing to suggest deep venous thrombophlebitis. Note the Doppler venograms of the lower extremities are negative for deep venous thrombophlebitis. Plan. 1. Antibiotics. 2. Low dose steroids. Watch abdomen. 3. Deep venous thrombophlebitis prophylaxis 4. Cultures 5. Continue antibiotics and inhalation therapy. 6. Daily chest x-ray ABGs and lab 7. Dr. Charles Sterling son and I have discussed the case and coordinated care 8. 03/17/2016. Bilateral upper lung infiltrates. Adult respiratory distress syndrome versus pneumonia. E. coli urinary tract infection. Requires 100% oxygen. Has been made a DO NOT RESUSCITATE. 9. 03/18/2016. See my note above for today. X-ray better. Oxygenation better. May be turning the corner. 10. 03/19/2016. X-ray and ABGs are better patient looks better continue present treatment follow-up chest x-ray and ABG. Keep O2 sats 95% or above Exam (Progress Note) - Constitutional Vitals: Period Temp Pulse Resp BP Sys/Redmond Pulse Ox Last 24 Hr 97.6 F-98.4 F 89-133 13-29 113-163/57-92 86-98 Results - Labs CBC & BMP: 03/18/16 03:36 03/18/16 03:36
[2016-03-19] MEDS: ENOXAPARIN 30 MG/0.3 ML SYRINGE SUBCUT SCH (12:55)
[2016-03-19] MEDS: BACLOFEN 20 MG TABLET PO SCH (21:16)
[2016-03-19] MEDS: AMITRIPTYLINE 50 MG TABLET PO SCH (21:17)
[2016-03-20] MEDS: MORPHINE 2 MG/1 ML SYRINGE IV PRN ×4 (00:50→16:08)
[2016-03-20] MEDS: methylPREDNISolone SOD SUC 40 MG/1 ML VIAL IV SCH ×3 (00:51→16:08)
[2016-03-20 03:25] LABS: ABG Base Excess 7.2 MMOL/L (-2.5-2.5); ABG HCO3 30.9 MMOL/L (20-26); ABG Oxygen Saturation 92.7 % (95-100); ABG PCO2 47.9 MM HG (35-48); ABG PH 7.441 (7.35-7.45); ABG PO2 65.3 MM HG (80-95); ABG TCO2 28.6 MMOL/L (23-27); Allen Test Positive
[2016-03-20] MEDS: PIPERACILLIN/TAZOBACTAM 3,375 MG in SODIUM CHLORIDE 0.9% 100 ML IV SCH ×3 (03:45→21:45)
[2016-03-20] MEDS: cefTAZidime 500 MG in SODIUM CHLORIDE 0.9% 100 ML IV SCH ×3 (03:59→20:00)
[2016-03-20] MEDS: ALBUTEROL/IPRATROPIUM 3 ML NEB RESP TX SCH ×4 (04:35→21:25)
[2016-03-20 05:43] LABS: Calcium 8.3 MG/DL (8.5-10.1); Magnesium 2.3 MG/DL (1.8-2.4); Osmolality,Calculated 292.6 MOS/KG (273-304); Potassium 3.9 MMOL/L (3.5-5.1)
[2016-03-20 07:07] LABS: Basophils % 0.2 % (0.0-0.8); Eosinophils # 0.1 10*3/uL (0.0-0.87); Eosinophils % 0.4 % (0.00-10.9); Hematocrit 39.6 VOL% (35.7-47.0); Hemoglobin 12.2 GM/DL (12.0-16.0); Immature Granulocytes % 4.6 %; Immature Granulocytes Absolute 0.78 #; Lymphocytes # 1.3 10*3/uL (1.4-4.0); Lymphocytes % 7.6 % (21.3-54.2); Mean Corpuscular HGB Conc 30.8 GM/DL (32-36); Mean Corpuscular Hemoglobin 27 PG (27-34); Mean Corpuscular Volume 88.4 FL (87-102); Mean Platelet Volume 9.7 FL (9.6-12.0); Monocytes # 0.7 10*3/uL (0.11-0.8); Monocytes % 4.3 % (1.7-12.7); Neutrophils # 14.1 10*3/uL (1.4-7.4); Neutrophils % 82.9 % (38.7-73.9); Platelet Count 551 T/CUMM (130-400); Red Blood Count 4.48 MC/CUMM (3.8-5.5); Red Cell Distribution Width 15.7 % (9.3-17.3)
[2016-03-20 07:28] LABS: Hypochromasia 1+; Lymphocytes 6 % (20-55); Microcytosis Slight; Myelocytes 1 %; Platelet Estimate Increased; Segmented Neutrophils 87 % (50-85); Total Cells Counted 100
[2016-03-20] MEDS: ONDANSETRON 4 MG/2 ML VIAL IV PRN ×2 (07:30→16:09)
[2016-03-20] MEDS: CLORAZEPATE 3.75 MG TABLET PO PRN ×2 (07:30→16:09)
--- NOTE | 2016-03-20 07:36 | XRay Report ---
XR chest 1V portable Indication: Pneumonia, hypoxemia Comparison: Chest x-ray dated March 19, 2016 Technique: Single frontal view of the chest Findings: Cardiac mediastinal silhouette appears grossly unchanged. Minimally improved patchy bilateral pulmonary consolidation, greatest within the left upper lobe. Osseous and surrounding soft tissue structures appear grossly unchanged. IMPRESSION: Minimally improved patchy bilateral pulmonary consolidation, greatest within the left upper lobe. PROCEDURE INTERPRETED AT [facility] DEPARTMENT OF RADIOLOGY Final Report Signed by: Dr Henry Kapadia
[2016-03-20] MEDS: ASPIRIN EC 81 MG TABLET PO SCH (08:34)
[2016-03-20] MEDS: CALCIUM (CARBONATE)/VITAMIN D 600 MG-400 UNIT TABLET PO SCH (08:35)
[2016-03-20] MEDS: GABAPENTIN 100 MG CAPSULE PO SCH ×2 (08:35→20:43)
[2016-03-20] MEDS: LISINOPRIL 5 MG TABLET PO SCH (08:35)
[2016-03-20] MEDS: NYSTATIN POWDER 15 GM BOTTLE TOP SCH ×2 (08:35→20:46)
[2016-03-20] MEDS: PHENAZOPYRIDINE 95 MG TABLET PO SCH (08:37)
[2016-03-20] MEDS: PANTOPRAZOLE 40 MG TABLET PO SCH (08:37)
[2016-03-20] MEDS: BENZONATATE 100 MG CAPSULE PO SCH ×3 (08:37→20:43)
[2016-03-20] MEDS: DESITIN 4OZ/NYSTATIN 15 GRAM MIXTURE PASTE TOP SCH ×2 (08:37→20:47)
[2016-03-20] MEDS: POTASSIUM CHLORIDE RIDER 10 MEQ in PREMIX 1 EACH IV PRN ×2 (10:19→11:30)
--- NOTE | 2016-03-20 10:35 | Pulmonology Progress Note ---
Pulmonary - PN: Subj Interval history: This is a 86-year-old white female whom I saw in pulmonary consultation on the night of 03/13/2016. Patient's main problems appear to be. 1. Admission 03/06/2016 for acute abdominal pain that was thought to be an infected duodenal diverticulum. This is resolving. She does have a remaining elevated white blood cell count. 2. Abnormal chest x-ray with progressive hypoxemia. I felt like we were dealing with mild congestive heart failure. Her BNP was elevated. She was started on Lasix 20 IV push 3 times daily. Chest x-rays a little better today ( 03/14/2016) but still abnormal. Her BNP is fallen to a normal level. Her creatinine is increased from 0.8-1.0. I have stopped her Lasix. Chest x-ray shows some scattered infiltrates which are most prominent in both upper lungs. There is no atelectasis associated with this. Today the patient is a better historian. She gave us a history of esophageal stricture. She denies solid dysphasia at the present time. She has chronic daily reflux up into her throat. I think there is a good chance we are dealing with the consequences of aspiration. We could be looking at aspiration pneumonia with superimposed bacterial pneumonia. At this point the patient looks too fragile to electively evaluate with fiberoptic bronchoscopy. She has improved. We will continue her inhalation therapy antibiotics and expectorants. Will take reflux precautions. I have started 20 mg once a day. I am reluctant to go higher in light of the recent abdominal infection. 3. Hypokalemia. Corrected. 4. Past history of high blood pressure, anxiety disorder, recurrent urinary tract infection, arthritis, cholecystectomy, diverticulosis. Also hiatal hernia and gastroesophageal reflux disease and esophageal stricture. There is also a past history of 3 elevated PTH Electrolytes are normal. Creatinine is 1.0. ABGs on 100% oxygen shows a pH of 7.408, PCO2 is 45.9. PO2 is 56.2. Bicarb is 27.4. White count is 17,400. H& H is stable at 12.8/37.6. Platelets 335,000. Natruretic peptide is dropped from 542-170. Microbiology is negative so far. 03/17/2016. This patient has now been made a DO NOT RESUSCITATE. Her chest x- ray shows fairly dense bilateral upper lung infiltrates. Urine cultures have grown E. coli. Fortaz has been started. Levaquin has been stopped. Patient remains on Zosyn for her abdominal infection. All: Cultures were negative. I did not see any blood cultures reported. BNP is 60. ABGs on FiO2 of 100% show a pH of 7.43. PCO2 is 52.1. PO2 is 65.5. Bicarb is 32.1. Electrolytes are normal. White blood cell count is dropped to 16,500 with 89% segs. H&H 11.8/ 36.2. Platelets of 446,000 she has a history of reflux and microaspiration. Of aspiration was a problem I would expect her to be more lower lung findings. I think we are probably dealing with adult respiratory distress syndrome. This may be secondary to sepsis but we need to keep other possibilities in mind. Over the weekend her Solu-Medrol was increased to 40 mg IV push every 8 hours. I agree with this. 03/18/2016. Patient's oxygenation has improved today. She may have aspirated a soft drink and we had to increase her FiO2. Chest x-ray is beginning to show some clearing of the bilateral upper lung alveolar infiltrates with air bronchograms. Electrolytes are close to normal. Sodium is 148. CBC is stable with a white count of 18,300. Most recent natruretic peptide was 60. Patient is definitely more alert and appears stronger today she is still significantly sick and I think we should keep her in CCU a little bit longer. She however looks like she is turning the corner and getting better. There are no positive cultures FiO2 has been lowered to 40% and ABGs show pH 7.53. PCO2 is 43.5. PO2 is 51.1. Bicarb is 35.5. Medicines have been reviewed. 03/19/2016. Patient's chest x-ray continues to slowly improve. Dense alveolar infiltrates in both upper lungs are gradually resolving. ABGs on FiO2 of 40% shows a pH 7.53. PCO2 43.5. PO2 51.1. Bicarb 35.5. Medicines been reviewed. Labs been reviewed. Patient looks stronger and more alert. I think we should try to keep her sats are 95% or above. This is not a significant CO2 retainer. 03/20/2016. This patient continues to improve on a daily basis. Early on she had a small amount of congestive heart failure which quickly resolved. Underneath this she had severe bilateral upper lung and midlung alveolar infiltrates with air bronchograms. She is an aspirator but I would not expect this pattern with aspiration unless she was in Trendelenburg position. This could have been a bilateral symmetrical pneumonia which is a little bit rare. She however has responded to steroids and antibiotics. She still has some residual infiltrate with air bronchograms in the left upper lung and in the right upper lung she is nearly clear there is some bibasal areas of mild linear atelectasis. I think we should continue her present regimen. I think she is safe to go to the floor. ABGs on FiO2 of 44% shows a pH of 7.44. PCO2 is 47.9. PO2 is 65.3. Bicarb is 30.9. Electrolytes are normal. Creatinine 0.6. BUN is 16. White count is 17,000. Platelets of 551,000. H&H 12.2/39.6 with normal indices there are no positive cultures except urine from 03/06/2016 which grew E. coli. This would bring out one more possibility and that would be adult respiratory distress syndrome secondary to sepsis. As an after thought I am going to check cold agglutinins and Legionella titers. Patient is more alert and stronger each day. Speech therapy evaluated her yesterday and felt like she was safe to eat they has some specific recommendations. They noted as I have she had a past history of esophageal stricture. She denies any solid dysphagia. Physical exam. Vital signs see above Psychiatric. Much more alert today and able to give us some history. Neurological. Cranial nerves are intact with marked decreased hearing acuity bilaterally patient moves all 4 extremities Neck. Symmetrical. No meningismus Lymphatics no submandibular cervical supraclavicular or epitrochlear adenopathy Chest. 100% clear Heart. No gallop Abdomen. Few bowel sounds are heard in all quadrants. Lower extremities. Nothing to suggest deep venous thrombophlebitis. Note the Doppler venograms of the lower extremities are negative for deep venous thrombophlebitis. Plan. 1. Antibiotics. 2. Low dose steroids. Watch abdomen. 3. Deep venous thrombophlebitis prophylaxis 4. Cultures 5. Continue antibiotics and inhalation therapy. 6. Daily chest x-ray ABGs and lab 7. Dr. Charles Sterling son and I have discussed the case and coordinated care 8. 03/17/2016. Bilateral upper lung infiltrates. Adult respiratory distress syndrome versus pneumonia. E. coli urinary tract infection. Requires 100% oxygen. Has been made a DO NOT RESUSCITATE. 9. 03/18/2016. See my note above for today. X-ray better. Oxygenation better. May be turning the corner. 10. 03/19/2016. X-ray and ABGs are better patient looks better continue present treatment follow-up chest x-ray and ABG. Keep O2 sats 95% or above 11. 03/20/2016. See my note for this date above. Continue present regimen. Get cold agglutinins. Get Legionella titer. Okay to move the floor. Might be best to go to a pulmonary floor. Exam (Progress Note) - Constitutional Vitals: Period Temp Pulse Resp BP Sys/Redmond Pulse Ox Last 24 Hr 98.2 F-98.7 F 68-107 11-29 103-159/57-92 19-98 Results - Labs CBC & BMP: 03/20/16 04:13 03/20/16 04:13
[2016-03-20] MEDS: ENOXAPARIN 30 MG/0.3 ML SYRINGE SUBCUT SCH (10:38)
--- NOTE | 2016-03-20 10:50 | Hospitalist Progress Note ---
Assessment and Plan (1) Duodenal diverticulum Status: Acute Current Visit: Yes (2) Bilateral pneumonia Status: Acute Assessment and plan: The patient is improving slowly from her pneumonia. The patient is ready for transition to the medical record Current Visit: Yes Qualifiers: Pneumonia type: due to Pneumococcus Lung location: lower lobe of lung Qualified Code(s): J13 - Pneumonia due to Streptococcus pneumoniae (3) Acute respiratory failure with hypoxia Status: Acute Current Visit: Yes Hospitalist: Subjective Interval history: The patient is making incremental daily progress. Her shortness of breath is improving. She appears to be stable for transition to medical gomes. The patient is having some anxiety and we will increase her transiting to scheduled. Exam - Constitutional Vitals: Period Temp Pulse Resp BP Sys/Redmond Pulse Ox Last 24 Hr 98.2 F-98.7 F 68-107 11- 103-159/57-92 - Exam: Constitutional System: Mild distress. Mild tremulousness. Head: Normocephalic, atraumatic. Ears, Nose and Throat System: No evidence of Otitis or Mastoiditis. No epistaxis or discharge Eyes System: Pupils equal, round, and reactive. Extraocular muscles intact. Neck: Supple, without adenopathy, No jugular venous distention. No thyromegaly , neck mass, or prior surgery apparent. Respiratory System: Chest few rhonchi diffusely to auscultation. Cardiovascular System: Heart with regular rate and rhythm. No murmur. GI System: Abdomen soft, nontender. Normoactive bowel sounds present. Musculoskeletal System: limbs with no pedal edema. Full distal pulses. Neurological System: No discernable sensory deficit. No aphasia Psychiatric System: Conversation is forgetful Results - Labs CBC & BMP: 03/20/16 04:13 03/20/16 04:13 Lab Results: I have reviewed the past 24 hour labs
[2016-03-20] MEDS: SERTRALINE 100 MG TABLET PO SCH (17:31)
[2016-03-20] MEDS: BACLOFEN 20 MG TABLET PO SCH (20:43)
[2016-03-20] MEDS: AMITRIPTYLINE 50 MG TABLET PO SCH (20:43)
[2016-03-21] MEDS: methylPREDNISolone SOD SUC 40 MG/1 ML VIAL IV SCH ×3 (00:25→16:16)
[2016-03-21] MEDS: cefTAZidime 500 MG in SODIUM CHLORIDE 0.9% 100 ML IV SCH ×3 (02:48→19:45)
[2016-03-21] MEDS: ALBUTEROL/IPRATROPIUM 3 ML NEB RESP TX SCH ×4 (03:16→20:52)
[2016-03-21 03:47] LABS: ABG Base Excess 7.8 MMOL/L (-2.5-2.5); ABG HCO3 33.2 MMOL/L (20-26); ABG Oxygen Saturation 95.2 % (95-100); ABG PCO2 49.4 MM HG (35-48); ABG PH 7.445 (7.35-7.45); ABG PO2 77.2 MM HG (80-95); ABG TCO2 34.7 MMOL/L (23-27); Allen Test Positive
[2016-03-21] MEDS: PIPERACILLIN/TAZOBACTAM 3,375 MG in SODIUM CHLORIDE 0.9% 100 ML IV SCH ×2 (04:18→12:39)
--- NOTE | 2016-03-21 07:59 | XRay Report ---
XR chest 1V portable Indication: Pneumonia, hypoxemia Comparison: Chest x-ray dated March 20, 2016 Technique: Single frontal view of the chest Findings: Cardiomediastinal silhouette is grossly unchanged. Minimally improved previously described bilateral pulmonary opacification. Osseous and surrounding soft tissue structures appear grossly unchanged. IMPRESSION: As above. PROCEDURE INTERPRETED AT [facility] DEPARTMENT OF RADIOLOGY Final Report Signed by: Dr Henry Kapadia
[2016-03-21] MEDS: PHENAZOPYRIDINE 95 MG TABLET PO SCH (10:32)
[2016-03-21] MEDS: ASPIRIN EC 81 MG TABLET PO SCH (10:32)
[2016-03-21] MEDS: CALCIUM (CARBONATE)/VITAMIN D 600 MG-400 UNIT TABLET PO SCH (10:33)
[2016-03-21] MEDS: LISINOPRIL 5 MG TABLET PO SCH (10:33)
[2016-03-21] MEDS: SERTRALINE 100 MG TABLET PO SCH (10:33)
[2016-03-21] MEDS: PANTOPRAZOLE 40 MG TABLET PO SCH (10:33)
[2016-03-21] MEDS: GABAPENTIN 100 MG CAPSULE PO SCH ×2 (10:33→20:00)
[2016-03-21] MEDS: BENZONATATE 100 MG CAPSULE PO SCH ×3 (10:33→20:00)
[2016-03-21] MEDS: ENOXAPARIN 40 MG/0.4 ML SYRINGE SUBCUT SCH (10:43)
[2016-03-21] MEDS: DESITIN 4OZ/NYSTATIN 15 GRAM MIXTURE PASTE TOP SCH ×2 (10:45→20:00)
[2016-03-21] MEDS: NYSTATIN POWDER 15 GM BOTTLE TOP SCH ×2 (10:47→20:00)
--- NOTE | 2016-03-21 11:38 | Pulmonology Progress Note ---
Pulmonary - PN: Subj Interval history: Hamilton Ramirez, ANP-BC, GNP-BC, acting as scribe for Dr. Modesto Lopez This is an 86-year-old white female who we saw in initial pulmonary consultation on the night of 03/13/2016. The patient's main problems appear to be: 1. Admission 03/06/2016 for acute abdominal pain that was thought to be an infected duodenal diverticulum. This is resolving. She does have a remaining elevated white blood cell count. 2. Abnormal chest x-ray with progressive hypoxemia. I felt like we were dealing with mild congestive heart failure. Her BNP was elevated. She was started on Lasix 20 IV push 3 times daily. Chest x-rays a little better today ( 03/14/2016) but still abnormal. Her BNP is fallen to a normal level. Her creatinine is increased from 0.8-1.0. I have stopped her Lasix. Chest x-ray shows some scattered infiltrates which are most prominent in both upper lungs. There is no atelectasis associated with this. Today the patient is a better historian. She gave us a history of esophageal stricture. She denies solid dysphasia at the present time. She has chronic daily reflux up into her throat. I think there is a good chance we are dealing with the consequences of aspiration. We could be looking at aspiration pneumonia with superimposed bacterial pneumonia. At this point the patient looks too fragile to electively evaluate with fiberoptic bronchoscopy. She has improved. We will continue her inhalation therapy antibiotics and expectorants. Will take reflux precautions. I have started 20 mg once a day. I am reluctant to go higher in light of the recent abdominal infection. 3. Hypokalemia. Corrected. 4. Past history of high blood pressure, anxiety disorder, recurrent urinary tract infection, arthritis, cholecystectomy, diverticulosis. Also hiatal hernia and gastroesophageal reflux disease and esophageal stricture. There is also a past history of 3 elevated PTH Electrolytes are normal. Creatinine is 1.0. ABGs on 100% oxygen shows a pH of 7.408, PCO2 is 45.9. PO2 is 56.2. Bicarb is 27.4. White count is 17,400. H& H is stable at 12.8/37.6. Platelets 335,000. Natruretic peptide is dropped from 542-170. Microbiology is negative so far. 03/17/2016. This patient has now been made a DO NOT RESUSCITATE. Her chest x- ray shows fairly dense bilateral upper lung infiltrates. Urine cultures have grown E. coli. Fortaz has been started. Levaquin has been stopped. Patient remains on Zosyn for her abdominal infection. All: Cultures were negative. I did not see any blood cultures reported. BNP is 60. ABGs on FiO2 of 100% show a pH of 7.43. PCO2 is 52.1. PO2 is 65.5. Bicarb is 32.1. Electrolytes are normal. White blood cell count is dropped to 16,500 with 89% segs. H&H 11.8/ 36.2. Platelets of 446,000 she has a history of reflux and microaspiration. Of aspiration was a problem I would expect her to be more lower lung findings. I think we are probably dealing with adult respiratory distress syndrome. This may be secondary to sepsis but we need to keep other possibilities in mind. Over the weekend her Solu-Medrol was increased to 40 mg IV push every 8 hours. I agree with this. 03/18/2016. Patient's oxygenation has improved today. She may have aspirated a soft drink and we had to increase her FiO2. Chest x-ray is beginning to show some clearing of the bilateral upper lung alveolar infiltrates with air bronchograms. Electrolytes are close to normal. Sodium is 148. CBC is stable with a white count of 18,300. Most recent natruretic peptide was 60. Patient is definitely more alert and appears stronger today she is still significantly sick and I think we should keep her in CCU a little bit longer. She however looks like she is turning the corner and getting better. There are no positive cultures FiO2 has been lowered to 40% and ABGs show pH 7.53. PCO2 is 43.5. PO2 is 51.1. Bicarb is 35.5. 03/19/2016. Patient's chest x-ray continues to slowly improve. Dense alveolar infiltrates in both upper lungs are gradually resolving. ABGs on FiO2 of 40% shows a pH 7.53. PCO2 43.5. PO2 51.1. Bicarb 35.5. Medicines been reviewed. Labs been reviewed. Patient looks stronger and more alert. I think we should try to keep her sats are 95% or above. This is not a significant CO2 retainer. 03/20/2016. This patient continues to improve on a daily basis. Early on she had a small amount of congestive heart failure which quickly resolved. Underneath this she had severe bilateral upper lung and midlung alveolar infiltrates with air bronchograms. She is an aspirator but I would not expect this pattern with aspiration unless she was in Trendelenburg position. This could have been a bilateral symmetrical pneumonia which is a little bit rare. She however has responded to steroids and antibiotics. She still has some residual infiltrate with air bronchograms in the left upper lung and in the right upper lung she is nearly clear there is some bibasal areas of mild linear atelectasis. I think we should continue her present regimen. I think she is safe to go to the floor. ABGs on FiO2 of 44% shows a pH of 7.44. PCO2 is 47.9. PO2 is 65.3. Bicarb is 30.9. Electrolytes are normal. Creatinine 0.6. BUN is 16. White count is 17,000. Platelets of 551,000. H&H 12.2/39.6 with normal indices there are no positive cultures except urine from 03/06/2016 which grew E. coli. This would bring out one more possibility and that would be adult respiratory distress syndrome secondary to sepsis. As an after thought I am going to check cold agglutinins and Legionella titers. Patient is more alert and stronger each day. Speech therapy evaluated her yesterday and felt like she was safe to eat they has some specific recommendations. They noted as I have she had a past history of esophageal stricture. She denies any solid dysphagia. 03/21/16. The patient has now been moved to the pulmonary floor. She was seen today along with her daughter and Christal Leslie RN. Her CXR continues to improve. She is now on O2 at 5 LPM via NC and is maintaining her O2 sats in the upper 90s. ABGs this morning on an FIO2 of 40% showed a pH of 7.445, PCO2 of 49.4, PO2 of 77.2, bicarb of 33.2, and O2 sat 95.2%. She is awake, alert and conversant. She is pleased with her improvement. Her urine previously grew E.coli despite a less than impressive urinalysis. For the time being, given her remarkable improvement, we should continue her on her present antibiotics. Medications have been reviewed. We made no changes today. Labs have been reviewed. No other new labs were drawn today. Exam (Progress Note) - Constitutional Vitals: Period Temp Pulse Resp BP Sys/Redmond Pulse Ox Last 24 Hr 96.0 F-98.1 F 81-105 16-21 127-159/67-94 90-98 Exam: Chest is clear Heart no gallop Abd is nontender and nondistended; BS positive x 4, but slightly hypoactive Ext with nothing to suggest acute DVT Psych presently oriented x 3 Neuro long tract motor function is intact Plan: Continue present pulmonary treatments. Continue present antibiotics. Daily CXR and ABGs. See orders. Results - Labs CBC & BMP: 03/20/16 04:13 03/20/16 04:13
--- NOTE | 2016-03-21 17:36 | Hospitalist Progress Note ---
Assessment and Plan (1) Duodenal diverticulum Status: Acute Current Visit: Yes (2) Bilateral pneumonia Status: Acute Assessment and plan: The patient is improving from her pneumonia. She will be ready for discharge soon. Current Visit: Yes Qualifiers: Pneumonia type: due to Pneumococcus Lung location: lower lobe of lung Qualified Code(s): J13 - Pneumonia due to Streptococcus pneumoniae (3) Acute respiratory failure with hypoxia Status: Acute Current Visit: Yes Hospitalist: Subjective Interval history: The patient has moved to the floor today. The patient appears stronger, more alert, and appetite is good. The patient does not complain of shortness of breath or chest pain. Exam - Constitutional Vitals: Period Temp Pulse Resp BP Sys/Redmond Pulse Ox Last 24 Hr 96.0 F-98.1 F 82-107 16-22 127-154/67-78 91-97 Exam: Constitutional System: Minimal distress. No tremulousness. Head: Normocephalic, atraumatic. Ears, Nose and Throat System: No evidence of Otitis or Mastoiditis. No epistaxis or discharge Eyes System: Pupils equal, round, and reactive. Extraocular muscles intact. Neck: Supple, without adenopathy, No jugular venous distention. No thyromegaly , neck mass, or prior surgery apparent. Respiratory System: Chest without rhonchi to auscultation. Cardiovascular System: Heart with regular rate and rhythm. No murmur. GI System: Abdomen soft, nontender. Normoactive bowel sounds present. Musculoskeletal System: limbs with no pedal edema. Full distal pulses. Neurological System: No discernable sensory deficit. No aphasia Psychiatric System: Conversation is forgetful Results - Labs CBC & BMP: 03/20/16 04:13 03/20/16 04:13 Lab Results: I have reviewed the past 24 hour labs
[2016-03-21] MEDS: BACLOFEN 20 MG TABLET PO SCH (20:00)
[2016-03-21] MEDS: CLORAZEPATE 3.75 MG TABLET PO PRN (20:00)
[2016-03-21] MEDS: AMITRIPTYLINE 50 MG TABLET PO SCH (20:00)
[2016-03-22] MEDS: methylPREDNISolone SOD SUC 40 MG/1 ML VIAL IV SCH ×2 (00:50→09:14)
[2016-03-22] MEDS: ONDANSETRON 4 MG/2 ML VIAL IV PRN (00:50)
[2016-03-22] MEDS: ALBUTEROL/IPRATROPIUM 3 ML NEB RESP TX SCH ×4 (02:00→19:27)
[2016-03-22 03:56] LABS: Allen Test Positive
[2016-03-22 03:57] LABS: ABG Base Excess 4.3 MMOL/L (-2.5-2.5); ABG HCO3 28.2 MMOL/L (20-26); ABG Oxygen Saturation 95.5 % (95-100); ABG PCO2 43.7 MM HG (35-48); ABG PH 7.432 (7.35-7.45); ABG PO2 80.8 MM HG (80-95); ABG TCO2 25.3 MMOL/L (23-27)
[2016-03-22] MEDS: cefTAZidime 500 MG in SODIUM CHLORIDE 0.9% 100 ML IV SCH ×3 (04:42→20:30)
[2016-03-22 06:44] LABS: Basophils # 0.1 10*3/uL (0.0-0.2); Basophils % 0.2 % (0.0-0.8); Hematocrit 42.1 VOL% (35.7-47.0); Hemoglobin 12.9 GM/DL (12.0-16.0); Immature Granulocytes % 8.2 %; Immature Granulocytes Absolute 1.65 #; Lymphocytes # 1.5 10*3/uL (1.4-4.0); Lymphocytes % 7.2 % (21.3-54.2); Mean Corpuscular HGB Conc 30.6 GM/DL (32-36); Mean Corpuscular Hemoglobin 27 PG (27-34); Mean Corpuscular Volume 88.8 FL (87-102); Mean Platelet Volume 9.4 FL (9.6-12.0); Monocytes # 0.8 10*3/uL (0.11-0.8); Monocytes % 3.8 % (1.7-12.7); Neutrophils # 16.1 10*3/uL (1.4-7.4); Neutrophils % 80.6 % (38.7-73.9); Platelet Count 555 T/CUMM (130-400); Red Blood Count 4.74 MC/CUMM (3.8-5.5)
[2016-03-22 07:08] LABS: Band Neutrophils 1 % (0-10); Lymphocytes 8 % (20-55); Platelet Estimate Adequate; Segmented Neutrophils 88 % (50-85); Total Cells Counted 100
[2016-03-22 07:09] LABS: Hypochromasia 1+; Microcytosis Slight; Ovalocytes Slight
[2016-03-22 07:15] LABS: Albumin 2.2 G/DL (3.4-5.0); Bilirubin,Total 0.5 MG/DL (0.2-1.0); Calcium 8.9 MG/DL (8.5-10.1); Magnesium 2.5 MG/DL (1.8-2.4); Osmolality,Calculated 292.6 MOS/KG (273-304); Potassium 4.9 MMOL/L (3.5-5.1); Total Protein 5.2 G/DL (6.4-8.3)
--- NOTE | 2016-03-22 07:55 | XRay Report ---
History: Pneumonia Date: 03/22/2016 Study: Chest x-ray single view portable Comparison exam: 03/21/2016 There is continued cardiomegaly. The mediastinal contours are unchanged. There is continued patchy and hazy infiltrate in both lungs, primarily in the upper lung zones. There has been mild interval improvement. There is no new or worsening process. There is no increase in pleural effusion. Osseous structures are similar. Impression: Continued bilateral pneumonia with slight interval improvement PROCEDURE INTERPRETED AT [facility] DEPARTMENT OF RADIOLOGY Final Report Signed by: Dr. Michelle Lester
[2016-03-22] MEDS: CALCIUM (CARBONATE)/VITAMIN D 600 MG-400 UNIT TABLET PO SCH (09:14)
[2016-03-22] MEDS: ASPIRIN EC 81 MG TABLET PO SCH (09:14)
[2016-03-22] MEDS: SERTRALINE 100 MG TABLET PO SCH (09:14)
[2016-03-22] MEDS: LISINOPRIL 5 MG TABLET PO SCH (09:14)
[2016-03-22] MEDS: PHENAZOPYRIDINE 95 MG TABLET PO SCH (09:14)
[2016-03-22] MEDS: PANTOPRAZOLE 40 MG TABLET PO SCH (09:14)
[2016-03-22] MEDS: GABAPENTIN 100 MG CAPSULE PO SCH ×2 (09:14→20:30)
[2016-03-22] MEDS: BENZONATATE 100 MG CAPSULE PO SCH ×3 (09:14→20:30)
[2016-03-22] MEDS: NYSTATIN POWDER 15 GM BOTTLE TOP SCH ×2 (09:15→20:31)
[2016-03-22] MEDS: DESITIN 4OZ/NYSTATIN 15 GRAM MIXTURE PASTE TOP SCH ×2 (09:16→20:31)
--- NOTE | 2016-03-22 09:33 | Hospitalist Progress Note ---
Assessment and Plan (1) Duodenal diverticulum Status: Acute Current Visit: Yes (2) Bilateral pneumonia Status: Acute Assessment and plan: The patient is improving from her pneumonia. She will be ready for discharge soon. The patient needs discharge planning and swing bed seems appropriate prior to planned for home care. I'm going to consult case management to begin exploring the options. Current Visit: Yes Qualifiers: Pneumonia type: due to Pneumococcus Lung location: lower lobe of lung Qualified Code(s): J13 - Pneumonia due to Streptococcus pneumoniae (3) Acute respiratory failure with hypoxia Status: Acute Current Visit: Yes Hospitalist: Subjective Interval history: The patient is resting quietly in bed. Her family notices that she is very weak and has only done physical therapy in the bed. They're hoping to take her home and care for her there. We discussed the option swing bed where she could get more therapy before going home. The patient's was at swing bed at [facility] prior to going home with hospice before he . They're reluctant to have her go to the same facility. Exam - Constitutional Vitals: Period Temp Pulse Resp BP Sys/Redmond Pulse Ox Last 24 Hr 96.0 F-98.0 F 87-107 18-22 133-149/70-90 91-98 Exam: Constitutional System: Minimal distress. No tremulousness. Head: Normocephalic, atraumatic. Ears, Nose and Throat System: No evidence of Otitis or Mastoiditis. No epistaxis or discharge Eyes System: Pupils equal, round, and reactive. Extraocular muscles intact. Neck: Supple, without adenopathy, No jugular venous distention. No thyromegaly , neck mass, or prior surgery apparent. Respiratory System: Chest without rhonchi to auscultation. Cardiovascular System: Heart with regular rate and rhythm. No murmur. GI System: Abdomen soft, nontender. Normoactive bowel sounds present. Musculoskeletal System: limbs with no pedal edema. Full distal pulses. Neurological System: No discernable sensory deficit. No aphasia Psychiatric System: Conversation is forgetful Results - Labs CBC & BMP: 03/22/16 05:52 03/22/16 05:52 Lab Results: I have reviewed the past 24 hour labs
[2016-03-22] MEDS: ENOXAPARIN 40 MG/0.4 ML SYRINGE SUBCUT SCH (11:49)
--- NOTE | 2016-03-22 11:54 | Pulmonology Progress Note ---
Pulmonary - PN: Subj Interval history: Patient seen with daughter at bedside thsi morning. She complained that she doesnt feel well but isn't able to articulate what is bothering her. She reports that her breathing is better but she keeps falling asleep during the exam Exam (Progress Note) - Constitutional Vitals: Period Temp Pulse Resp BP Sys/Redmond Pulse Ox Last 24 Hr 96.6 F-98.0 F 85-107 18-22 133-149/62-90 91-98 General appearance: no acute distress - Head Head exam: Present: normal inspection - Neck Neck exam: Present: normal inspection - Respiratory Respiratory exam: Present: clear to auscultation bilaterally - Cardiovascular Cardiovascular exam: Present: regular rate and rhythm - GI/Abdominal GI/Abdominal exam: Present: normal bowel sounds, soft Results - Labs CBC & BMP: 03/22/16 05:52 03/22/16 05:52 Lab Results: I have reviewed the past 24 hour labs Assessment and Plan (1) Acute respiratory failure with hypoxia Status: Acute Assessment and plan: Appears resolved. Will change solumedrol to prednisone. Unsure if her leukocytosis is secondary to the steroids or untreated infection. Will monitor closely Current Visit: Yes
[2016-03-22] MEDS: AMITRIPTYLINE 50 MG TABLET PO SCH (20:30)
[2016-03-22] MEDS: BACLOFEN 20 MG TABLET PO SCH (20:30)
[2016-03-22] MEDS: LORazepam 0.5 MG TABLET PO PRN (20:31)
[2016-03-22] MEDS: CLORAZEPATE 3.75 MG TABLET PO PRN (23:46)
[2016-03-23] MEDS: ALBUTEROL/IPRATROPIUM 3 ML NEB RESP TX SCH ×4 (00:37→20:05)
[2016-03-23] MEDS: ACETAMINOPHEN 325 MG TABLET PO PRN (00:46)
[2016-03-23] MEDS: cefTAZidime 500 MG in SODIUM CHLORIDE 0.9% 100 ML IV SCH ×3 (04:00→21:31)
[2016-03-23 08:13] LABS: ABG Base Excess 4.3 MMOL/L (-2.5-2.5); ABG HCO3 29.1 MMOL/L (20-26); ABG Oxygen Saturation 96.4 % (95-100); ABG PCO2 44.2 MM HG (35-48); ABG PH 7.436 (7.35-7.45); ABG PO2 86.3 MM HG (80-95); ABG TCO2 30.4 MMOL/L (23-27)
[2016-03-23] MEDS: GABAPENTIN 100 MG CAPSULE PO SCH ×2 (09:35→21:27)
[2016-03-23] MEDS: LORazepam 0.5 MG TABLET PO PRN (09:36)
[2016-03-23] MEDS: PHENAZOPYRIDINE 95 MG TABLET PO SCH (09:36)
[2016-03-23] MEDS: ASPIRIN EC 81 MG TABLET PO SCH (09:36)
[2016-03-23] MEDS: CALCIUM (CARBONATE)/VITAMIN D 600 MG-400 UNIT TABLET PO SCH (09:36)
[2016-03-23] MEDS: PANTOPRAZOLE 40 MG TABLET PO SCH (09:36)
[2016-03-23] MEDS: BENZONATATE 100 MG CAPSULE PO SCH ×3 (09:36→21:26)
[2016-03-23] MEDS: SERTRALINE 100 MG TABLET PO SCH (09:36)
[2016-03-23] MEDS: NYSTATIN POWDER 15 GM BOTTLE TOP SCH ×2 (09:36→21:35)
[2016-03-23] MEDS: LISINOPRIL 5 MG TABLET PO SCH (09:36)
[2016-03-23] MEDS: DESITIN 4OZ/NYSTATIN 15 GRAM MIXTURE PASTE TOP SCH ×2 (09:37→21:37)
--- NOTE | 2016-03-23 10:30 | Pulmonology Progress Note ---
Pulmonary - PN: Subj Interval history: Patient seen with daughter at bedside. She looks much better this morning. States she feels about the same. Had a hard time sleeping last night. Breathing is ok. Has a lot of aches and pains. Exam (Progress Note) - Constitutional Vitals: Period Temp Pulse Resp BP Sys/Redmond Pulse Ox Last 24 Hr 97.9 F-99.7 F 80-104 14-20 127-156/61-80 91-97 General appearance: normal weight - Head Head exam: Present: normal inspection - Respiratory Respiratory exam: Present: clear to auscultation bilaterally - Cardiovascular Cardiovascular exam: Present: regular rate and rhythm Results - Labs CBC & BMP: 03/22/16 05:52 03/22/16 05:52 Lab Results: I have reviewed the past 24 hour labs Assessment and Plan (1) Acute respiratory failure with hypoxia Status: Acute Assessment and plan: Clinically doing well. Doesn't appear to be clinically infected. No labs today. Needs to recheck CBC tomorrow to ensure leukocytosis is improving. Current Visit: Yes
--- NOTE | 2016-03-23 11:54 | XRay Report ---
History: Pneumonia Date: 03/23/2016 Study: Chest x-ray single view portable Comparison exam: 03/22/2016 There is continued cardiomegaly. The mediastinal contours are unchanged. There is patchy and hazy infiltrate scattered in both lungs, more so in the upper lung zones, generally unchanged. There is no obvious new or worsening infiltrate. There is no increasing pleural effusion. Osseous structures are similar. Impression: Continued bilateral pneumonia without significant interval change PROCEDURE INTERPRETED AT [facility] DEPARTMENT OF RADIOLOGY Final Report Signed by: Dr. Michelle Lester
[2016-03-23] MEDS: ENOXAPARIN 40 MG/0.4 ML SYRINGE SUBCUT SCH (12:57)
[2016-03-23] MEDS ORDERED: TUBERCULIN SKIN TEST 0.1 ML SYRINGE INTRADERM ONE (15:31)
--- NOTE | 2016-03-23 15:33 | Hospitalist Progress Note ---
Assessment and Plan (1) Duodenal diverticulum Status: Acute Current Visit: Yes (2) Bilateral pneumonia Status: Acute Assessment and plan: The patient is improving from her pneumonia. She will be ready for discharge soon. The patient needs discharge planning and swing bed seems appropriate prior to planned for home care. Case management is discussing swing bed options with the patient's family. Aunt had tuberculosis skin test. The patient had some chest discomfort last night and I have ordered troponin values to see if any myocardial infarction occurred. Current Visit: Yes Qualifiers: Pneumonia type: due to Pneumococcus Lung location: lower lobe of lung Qualified Code(s): J13 - Pneumonia due to Streptococcus pneumoniae (3) Acute respiratory failure with hypoxia Status: Acute Current Visit: Yes Hospitalist: Subjective Interval history: The patient is resting quietly. She had agitation and difficulty sleeping through the night. Shortness of breath continues to improve. I discussed swing bed with the patient's daughter. Exam - Constitutional Vitals: Period Temp Pulse Resp BP Sys/Redmond Pulse Ox Last 24 Hr 97.6 F-99.7 F 80-104 18-20 114-156/61-75 90-98 Exam: Constitutional System: Minimal distress. No tremulousness. Head: Normocephalic, atraumatic. Ears, Nose and Throat System: No evidence of Otitis or Mastoiditis. No epistaxis or discharge Eyes System: Pupils equal, round, and reactive. Extraocular muscles intact. Neck: Supple, without adenopathy, No jugular venous distention. No thyromegaly , neck mass, or prior surgery apparent. Respiratory System: Chest without rhonchi to auscultation. Cardiovascular System: Heart with regular rate and rhythm. No murmur. GI System: Abdomen soft, nontender. Normoactive bowel sounds present. Musculoskeletal System: limbs with no pedal edema. Full distal pulses. Neurological System: No discernable sensory deficit. No aphasia Psychiatric System: Conversation is forgetful Results - Labs CBC & BMP: 03/22/16 05:52 03/22/16 05:52 Lab Results: I have reviewed the past 24 hour labs
[2016-03-23 16:23] LABS: Troponin I Only < 0.015 NG/ML (0.00-0.045)
[2016-03-23] MEDS: AMITRIPTYLINE 50 MG TABLET PO SCH (21:25)
[2016-03-23] MEDS: BACLOFEN 20 MG TABLET PO SCH (21:26)
[2016-03-24] MEDS: ALBUTEROL/IPRATROPIUM 3 ML NEB RESP TX SCH ×4 (00:50→20:00)
[2016-03-24] MEDS: cefTAZidime 500 MG in SODIUM CHLORIDE 0.9% 100 ML IV SCH ×3 (06:17→22:43)
[2016-03-24 06:51] LABS: Troponin I Only < 0.015 NG/ML (0.00-0.045)
--- NOTE | 2016-03-24 06:56 | XRay Report ---
XR chest 1V portable Indication: Pneumonia. Chest one view: Since yesterday, given variation in technique, cardiomegaly, tortuous thoracic aorta and diffuse interstitial prominence of the lungs is stable. Lung biopsy decreased slightly. No new infiltrates are seen. Impression: Given variation in technique, little change. PROCEDURE INTERPRETED AT [facility] DEPARTMENT OF RADIOLOGY Final Report Signed by: Charles Corea M.D.
[2016-03-24] MEDS: ASPIRIN EC 81 MG TABLET PO SCH (09:08)
[2016-03-24] MEDS: GABAPENTIN 100 MG CAPSULE PO SCH ×2 (09:08→22:42)
[2016-03-24] MEDS: PHENAZOPYRIDINE 95 MG TABLET PO SCH (09:08)
[2016-03-24] MEDS: PANTOPRAZOLE 40 MG TABLET PO SCH (09:08)
[2016-03-24] MEDS: LISINOPRIL 5 MG TABLET PO SCH (09:09)
[2016-03-24] MEDS: predniSONE 20 MG TABLET PO SCH (09:09)
[2016-03-24] MEDS: CALCIUM (CARBONATE)/VITAMIN D 600 MG-400 UNIT TABLET PO SCH (09:09)
[2016-03-24] MEDS: NYSTATIN POWDER 15 GM BOTTLE TOP SCH ×2 (09:10→22:44)
[2016-03-24] MEDS: BENZONATATE 100 MG CAPSULE PO SCH ×3 (09:11→22:42)
[2016-03-24] MEDS: SERTRALINE 100 MG TABLET PO SCH (09:11)
[2016-03-24] MEDS: DESITIN 4OZ/NYSTATIN 15 GRAM MIXTURE PASTE TOP SCH ×2 (09:12→22:45)
[2016-03-24 09:14] LABS: Basophils # 0.1 10*3/uL (0.0-0.2); Basophils % 0.4 % (0.0-0.8); Eosinophils # 0.4 10*3/uL (0.0-0.87); Eosinophils % 1.8 % (0.00-10.9); Hematocrit 39.4 VOL% (35.7-47.0); Hemoglobin 12.5 GM/DL (12.0-16.0); Immature Granulocytes % 10.6 %; Immature Granulocytes Absolute 2.17 #; Lymphocytes % 14.5 % (21.3-54.2); Mean Corpuscular HGB Conc 31.7 GM/DL (32-36); Mean Corpuscular Hemoglobin 28 PG (27-34); Mean Corpuscular Volume 87.9 FL (87-102); Mean Platelet Volume 9.3 FL (9.6-12.0); Monocytes # 1.4 10*3/uL (0.11-0.8); Monocytes % 6.8 % (1.7-12.7); Neutrophils # 13.5 10*3/uL (1.4-7.4); Neutrophils % 65.9 % (38.7-73.9); Platelet Count 416 T/CUMM (130-400); Red Blood Count 4.48 MC/CUMM (3.8-5.5); Red Cell Distribution Width 16.7 % (9.3-17.3); White Blood Count 20.4 T/CUMM (4-12)
[2016-03-24 09:23] LABS: Alanine Aminotransferase 13 U/L (13-56); Albumin 2.2 G/DL (3.4-5.0); Alkaline Phosphatase 78 U/L (45-117); Aspartate Amino Transferase 11 U/L (0-37); Bilirubin,Total < 0.39 MG/DL (0.2-1.0); Blood Urea Nitrogen 15 MG/DL (7-18); Calcium 7.9 MG/DL (8.5-10.1); Glucose 94 MG/DL (74-106); Potassium 4.2 MMOL/L (3.5-5.1); Sodium 143 MMOL/L (136-145); Total Protein 4.8 G/DL (6.4-8.3)
[2016-03-24] MEDS: ENOXAPARIN 40 MG/0.4 ML SYRINGE SUBCUT SCH (10:38)
[2016-03-24] MEDS: FLUCONAZOLE 200 MG TABLET PO SCH (10:38)
--- NOTE | 2016-03-24 10:57 | Pulmonology Progress Note ---
Pulmonary - PN: Subj Interval history: This is a 86-year-old white female whom I saw in pulmonary consultation on the night of 03/13/2016. Patient's main problems appear to be. 1. Admission 03/06/2016 for acute abdominal pain that was thought to be an infected duodenal diverticulum. This is resolving. She does have a remaining elevated white blood cell count. 2. Abnormal chest x-ray with progressive hypoxemia. I felt like we were dealing with mild congestive heart failure. Her BNP was elevated. She was started on Lasix 20 IV push 3 times daily. Chest x-rays a little better today ( 03/14/2016) but still abnormal. Her BNP is fallen to a normal level. Her creatinine is increased from 0.8-1.0. I have stopped her Lasix. Chest x-ray shows some scattered infiltrates which are most prominent in both upper lungs. There is no atelectasis associated with this. Today the patient is a better historian. She gave us a history of esophageal stricture. She denies solid dysphasia at the present time. She has chronic daily reflux up into her throat. I think there is a good chance we are dealing with the consequences of aspiration. We could be looking at aspiration pneumonia with superimposed bacterial pneumonia. At this point the patient looks too fragile to electively evaluate with fiberoptic bronchoscopy. She has improved. We will continue her inhalation therapy antibiotics and expectorants. Will take reflux precautions. I have started 20 mg once a day. I am reluctant to go higher in light of the recent abdominal infection. 3. Hypokalemia. Corrected. 4. Past history of high blood pressure, anxiety disorder, recurrent urinary tract infection, arthritis, cholecystectomy, diverticulosis. Also hiatal hernia and gastroesophageal reflux disease and esophageal stricture. There is also a past history of 3 elevated PTH Electrolytes are normal. Creatinine is 1.0. ABGs on 100% oxygen shows a pH of 7.408, PCO2 is 45.9. PO2 is 56.2. Bicarb is 27.4. White count is 17,400. H& H is stable at 12.8/37.6. Platelets 335,000. Natruretic peptide is dropped from 542-170. Microbiology is negative so far. 03/17/2016. This patient has now been made a DO NOT RESUSCITATE. Her chest x- ray shows fairly dense bilateral upper lung infiltrates. Urine cultures have grown E. coli. Fortaz has been started. Levaquin has been stopped. Patient remains on Zosyn for her abdominal infection. All: Cultures were negative. I did not see any blood cultures reported. BNP is 60. ABGs on FiO2 of 100% show a pH of 7.43. PCO2 is 52.1. PO2 is 65.5. Bicarb is 32.1. Electrolytes are normal. White blood cell count is dropped to 16,500 with 89% segs. H&H 11.8/ 36.2. Platelets of 446,000 she has a history of reflux and microaspiration. Of aspiration was a problem I would expect her to be more lower lung findings. I think we are probably dealing with adult respiratory distress syndrome. This may be secondary to sepsis but we need to keep other possibilities in mind. Over the weekend her Solu-Medrol was increased to 40 mg IV push every 8 hours. I agree with this. 03/18/2016. Patient's oxygenation has improved today. She may have aspirated a soft drink and we had to increase her FiO2. Chest x-ray is beginning to show some clearing of the bilateral upper lung alveolar infiltrates with air bronchograms. Electrolytes are close to normal. Sodium is 148. CBC is stable with a white count of 18,300. Most recent natruretic peptide was 60. Patient is definitely more alert and appears stronger today she is still significantly sick and I think we should keep her in CCU a little bit longer. She however looks like she is turning the corner and getting better. There are no positive cultures FiO2 has been lowered to 40% and ABGs show pH 7.53. PCO2 is 43.5. PO2 is 51.1. Bicarb is 35.5. Medicines have been reviewed. 03/19/2016. Patient's chest x-ray continues to slowly improve. Dense alveolar infiltrates in both upper lungs are gradually resolving. ABGs on FiO2 of 40% shows a pH 7.53. PCO2 43.5. PO2 51.1. Bicarb 35.5. Medicines been reviewed. Labs been reviewed. Patient looks stronger and more alert. I think we should try to keep her sats are 95% or above. This is not a significant CO2 retainer. 03/20/2016. This patient continues to improve on a daily basis. Early on she had a small amount of congestive heart failure which quickly resolved. Underneath this she had severe bilateral upper lung and midlung alveolar infiltrates with air bronchograms. She is an aspirator but I would not expect this pattern with aspiration unless she was in Trendelenburg position. This could have been a bilateral symmetrical pneumonia which is a little bit rare. She however has responded to steroids and antibiotics. She still has some residual infiltrate with air bronchograms in the left upper lung and in the right upper lung she is nearly clear there is some bibasal areas of mild linear atelectasis. I think we should continue her present regimen. I think she is safe to go to the floor. ABGs on FiO2 of 44% shows a pH of 7.44. PCO2 is 47.9. PO2 is 65.3. Bicarb is 30.9. Electrolytes are normal. Creatinine 0.6. BUN is 16. White count is 17,000. Platelets of 551,000. H&H 12.2/39.6 with normal indices there are no positive cultures except urine from 03/06/2016 which grew E. coli. This would bring out one more possibility and that would be adult respiratory distress syndrome secondary to sepsis. As an after thought I am going to check cold agglutinins and Legionella titers. Patient is more alert and stronger each day. Speech therapy evaluated her yesterday and felt like she was safe to eat they has some specific recommendations. They noted as I have she had a past history of esophageal stricture. She denies any solid dysphagia. 03/24/2016. Patient was seen along with her daughter. She continues to improve. She has had some hemorrhoidal bleed. See Dr. Bar's note. Her chest x-ray continues to improve and she has only a small amount of residual increased interstitial markings and alveolar filling in both upper lungs. She complains of hoarseness and she complains of a sore tongue. Tongue is a little bit dry and geographic. I did not see any definite Chiqui but I am going to start her on Diflucan and Mycelex troches. I suspect her hoarseness is related to adherent material on her vocal cords. I have asked ENT to see her as her symptoms are quite significant and they are very disturbing to the patient. Electrolytes normal. Creatinine is 0.6. BUNs 15. White count is elevated 20, 400. H&H is 12.5/39.4. Cold agglutinins are negative. She has no positive cultures from any site except early on she had a E. coli urinary tract infection and this appeared to be relatively minor as the colony count was only 20,000 and his urine looked normal. Cultures were obtained on a urinalysis obtained at admission. Therefore this was not hospital-acquired we will try to continue the patient's antibiotics a few more days since we do not know the name of the organism which caused her bilateral upper lung pneumonia. Her steroid dose is down to 20 mg of prednisone a day. Physical exam. Vital signs see above Psychiatric. Much more alert today and able to give us some history. Neurological. Cranial nerves are intact with marked decreased hearing acuity bilaterally patient moves all 4 extremities Neck. Symmetrical. No meningismus Lymphatics no submandibular cervical supraclavicular or epitrochlear adenopathy Chest. 100% clear Heart. No gallop Abdomen. Few bowel sounds are heard in all quadrants. Lower extremities. Nothing to suggest deep venous thrombophlebitis. Note the Doppler venograms of the lower extremities are negative for deep venous thrombophlebitis. Plan. 1. Antibiotics. 2. Low dose steroids. Watch abdomen. 3. Deep venous thrombophlebitis prophylaxis 4. Cultures 5. Continue antibiotics and inhalation therapy. 6. Daily chest x-ray ABGs and lab 7. Dr. Charles Sterling son and I have discussed the case and coordinated care 8. 03/17/2016. Bilateral upper lung infiltrates. Adult respiratory distress syndrome versus pneumonia. E. coli urinary tract infection. Requires 100% oxygen. Has been made a DO NOT RESUSCITATE. 9. 03/18/2016. See my note above for today. X-ray better. Oxygenation better. May be turning the corner. . 03/19/2016. X-ray and ABGs are better patient looks better continue present treatment follow-up chest x-ray and ABG. Keep O2 sats 95% or above . 03/20/2016. See my note for this date above. Continue present regimen. Get cold agglutinins. Get Legionella titer. Okay to move the floor. Might be best to go to a pulmonary floor. . 03/24/2016. Hemorrhoids. Hoarseness. Possible oral candidiasis. See my note above. Exam (Progress Note) - Constitutional Vitals: Period Temp Pulse Resp BP Sys/Redmond Pulse Ox Last 24 Hr 97.7 F-99.8 F 73-103 16-20 100-130/52-76 90-99 Results - Labs CBC & BMP: 03/24/16 05:31 03/24/16 05:31
--- NOTE | 2016-03-24 11:08 | Hospitalist Progress Note ---
Assessment and Plan (1) Abdominal pain Status: Resolved Current Visit: Yes Qualifiers: Abdominal location: right upper quadrant Qualified Code(s): R10.11 - Right upper quadrant pain (2) UTI (urinary tract infection) Status: Acute Current Visit: Yes Qualifiers: Urinary tract infection type: acute cystitis Hematuria presence: without hematuria Qualified Code(s): N30.00 - Acute cystitis without hematuria (3) Abdominal mass Status: Acute Assessment and plan: Patient's deemed not a surgical candidate. Best route will be treatment antibiotics. Patient symptomatically seems to improved. We'll repeat a chest x -ray in 48 hours. The read on the chest x-ray was very vague could include scarring pulmonary edema versus infiltrate. Zosyn she is currently on would treat a pneumonia. Continue to monitor patient will follow along with you. 03/11/16 patient seems to be doing okay. She is having some complaints about nausea and diarrhea. Check her stool for culture. Recheck an x-ray in the morning to evaluate her pneumonia and scheduled breathing treatments when necessary 03/12/16 patient continues to improve slightly. Her stool studies did not display any pathogens at this point. Her x-ray does show some patchy possible infiltrates. I will order some Tessalon Perles to see if that will help her. We need to get physical therapy and borderline patient's able to participate 03/13/16 patient had a setback yesterday. I have moved her down to the unit for closer observation. She seems stable down here she is currently on a nonrebreather sats are in the low 90s. Crit x-ray really hasn't changed that much she has this pulmonary edema versus infiltrate. I have her on Zosyn. I gave her some Lasix last night secondary to elevated BNP. She still continues to have these coughing spells. I'm going to consult pulmonary disease if they could have some input on the treatment of her. 03/14/16 patient is still continuing to require ICU management discussed the case with Dr. Colvin. He suggests low-dose steroids. Patient is on Zosyn. There might be an element of aspiration going on with this patient. Need to continue current inhalation therapy and monitor for improvement 03/24/16 patient has since been able to be moved to the floor. She still has a white count of 20. She did have some issues with some possible hemorrhoidal bleeding. Her H&H is stable though. I told her daughter this is low on the list of things we need to take care of at this time. Dr. Colvin wanted to have her hoarseness further evaluated by ENT. This does seem very appropriate. Overall patient is made significant improvement since admission. Upon discharge she will need to go to swing bed Current Visit: Yes Hospitalist: Subjective Interval history: The first time understanding the bowel the patient in 10 days. She has made significant improvement in that time. Patient has a definite hoarse voice today. And she said this started yesterday. She's complaining about some, sensation on her tongue although it looked little dry. Did not see any obvious lesions. Exam - Constitutional Vitals: Period Temp Pulse Resp BP Sys/Redmond Pulse Ox Last 24 Hr 96.6 F-99.8 F 73-103 16-20 100-130/52-76 90-99 General appearance: normal weight - Head Head exam: Present: normal inspection - ENT ENT exam: Present: normal exam - Neck Neck exam: Present: normal inspection - Respiratory Respiratory exam: Present: clear to auscultation bilaterally - Cardiovascular Cardiovascular exam: Present: regular rate and rhythm - GI/Abdominal GI/Abdominal exam: Present: normal bowel sounds - Extremities Exam Extremities exam: Present: normal inspection - Back Exam Back exam: Present: normal inspection - Neurological Exam Neurological exam: Present: alert - Psychiatric Psychiatric exam: Present: normal affect - Skin Skin exam: Present: normal color Results - Labs CBC & BMP: 03/24/16 05:31 03/24/16 05:31
[2016-03-24 11:50] LABS: Anisocytosis 1+; Band Neutrophils 2 % (0-10); Lymphocytes 3 % (20-55); Macrocytosis 1+; Myelocytes 2 %; Platelet Estimate Adequate; Polychromasia Slight; Segmented Neutrophils 85 % (50-85); Total Cells Counted 100
[2016-03-24] MEDS: CLOTRIMAZOLE 10 MG TROCHE PO SCH ×4 (14:13→22:42)
--- NOTE | 2016-03-24 19:05 | Consultation ---
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 I recommend conservative treatment and recommend she follow-up with me after discharge from swing bed/ long-term care. 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 Thank you very much for this consult I will sign off this case by remain available if there is any additional questions or concerns or would like to see this patient in follow-up in the office for video stroboscopy to make sure there is a complete resolution of her vocal cord hemorrhage and there is no subsequent scarring that could cause long-term hoarseness. Current Visit: Yes (2) Bilateral pneumonia Status: Acute Current Visit: Yes Qualifiers: Pneumonia type: due to Pneumococcus Lung location: lower lobe of lung Qualified Code(s): J13 - Pneumonia due to Streptococcus pneumoniae (3) Acute respiratory failure with hypoxia Status: Acute Current Visit: Yes History of Present Illness - Data of Consult Patient: new to practice Consult date: 03/24/16 Requesting Physician: Modesto Lopez - Consult Narrative Reason for consult: Hoarseness History of present illness: Ms. Rose is a 86 year old female with multiple medical comorbidities and new onset hoarseness of unknown etiology. The hoarseness comes and goes/is intermittent but has been persistent and is quite troublesome to the patient. ENT is consulted for evaluation and treatment CC: Charles Eaton MD - Home Medications and Allergies Home Medications: Home Medications Medication Instructions Recorded Confirmed Type Amitriptyline [Elavil] 50 mg PO BEDTIME 03/06/16 03/07/16 History Amoxicillin Cap/Tab 500 mg PO TID 03/06/16 03/07/16 History Baclofen [Baclofen] 10 mg PO BEDTIME 03/06/16 03/07/16 History Gabapentin Cap/Tab [Neurontin 100 mg PO BID 03/06/16 03/07/16 History Cap/Tab] Lisinopril [Lisinopril] 5 mg PO DAILY 03/06/16 03/07/16 History Omeprazole [Omeprazole] 20 mg PO BID 03/06/16 03/07/16 History Oxycodone HCl [Oxycodone HCl] 10 mg PO Q6-8H 03/06/16 03/07/16 History Sertraline HCl [Sertraline HCl] 100 mg PO DAILY 03/06/16 03/07/16 History Aspirin [Ecotrin] 1 tablet PO DAILY 03/07/16 03/07/16 History Bisacodyl Tab [Dulcolax Tab] 5 mg PO DAILY PRN 03/07/16 03/07/16 History Calcium Carbonate/Vitamin D3 600 mg PO DAILY 03/07/16 03/07/16 History [Calcium 600 + Vit D Tablet] Cinnamon Bark [Cinnamon] 2 capsule PO DAILY 03/07/16 03/07/16 History Gelatin 1,200 mg PO DAILY 03/07/16 03/07/16 History Glucosamine/Chondroitin/Vit D3 800 unit DAILY 03/07/16 03/07/16 History [Rtnudmxp-Cjbifa-Ftx D3 Tab] Multivitamin (Centrum) [Centrum 1 mg PO DAILY 03/07/16 03/07/16 History Tab] Om3/Dha/Epa/Cod Liver Oil/A/D3 1 capsule PO DAILY 03/07/16 03/07/16 History [Cod Liver Oil Softgel] Phenazopyridine HCl [Azo Urinary 1 tablet PO DAILY 03/07/16 03/07/16 History Pain Relief] Saccharomyces Boulardii [Probiotic] 1 capsule PO DAILY 03/07/16 03/07/16 History Vitamin E 400 units PO BEDTIME 03/07/16 03/07/16 History Allergies/Adverse Reactions: Allergies Allergy/AdvReac Type Severity Reaction Status Date / Time codeine Allergy ITCHING Verified 03/06/16 17:12 Sulfa (Sulfonamide Allergy Unknown/Unable Verified 03/06/16 17:12 Antibiotics) to obtain 12 point system: reviewed and no additional remarkable complaints except as stated Medical,Surgical,& Family Hx - Medical History Cardio: History of: Hypertension Psychological: History of: Anxiety Disorders Genitourinary: History of: Recurring Urinary Tract Infections Musculoskeletal: History of: Musculoskeletal Problems (ARTHRITIS) No history of: Amputation - Surgical History Thoracic Surgeries: Patient denies;: Organ Transplant Abdominal Surgeries: Surgical HX of: Abdominal Surgery, Cholecystectomy Reproductive Surgeries: Surgical HX of;: Genitourinary Surgery (bladder tack), Hysterectomy Orthopedic Surgeries: Patient denies;: Implanted Devices, Orthopedic Surgery, Spinal Surgery, Total Hip Replacement, Total Knee Replacement - Family History Family History: Reports;: Family Heart Disease, Family Hypertension Denies;: Family Anesthesia Reaction, Family Cancer, Family Diabetes, Family Hematology, Family Psychiatric Problems, Family Stroke, Additional Family History - Social History Smoking Status: Never smoker Frequency of Alcohol Use: None Type of Drug Use: None Exam - Constitutional Vitals: Period Temp Pulse Resp BP Sys/Redmond Pulse Ox Last 24 Hr 96.6 F-99.8 F 81-104 16-20 100-130/52-76 91-99 General appearance: normal weight, no acute distress - Head Head exam: Present: normal inspection, normocephalic - Eye Eye exam: Present: EOMI Pupils: Present: KAYLYN - ENT ENT exam: Present: normal exam, normal external ear exam, normal oropharynx, other (Bedside laryngoscopy reveals a leftward deviated larynx with right vocal fold hemorrhage that appears acute in nature and the probable cause for her new onset hoarseness this is most likely secondary to coughing and her multiple comorbidities) - Neck Neck exam: Present: normal inspection - GI/Abdominal GI/Abdominal exam: Present: soft (No gross organomegaly) - Extremities Exam Extremities exam: Present: normal inspection, normal capillary refill - Neurological Exam Neurological exam: Present: alert, oriented X3, CN II-XII intact - Psychiatric Psychiatric exam: Present: normal affect, normal mood - Skin Skin exam: Present: normal color, warm Results - Labs CBC & BMP: 03/24/16 05:31 03/24/16 05:31 Lab Results: I have reviewed the past 24 hour labs
[2016-03-24] MEDS: BACLOFEN 20 MG TABLET PO SCH (22:42)
[2016-03-24] MEDS: AMITRIPTYLINE 50 MG TABLET PO SCH (22:43)
[2016-03-25] MEDS: ALBUTEROL/IPRATROPIUM 3 ML NEB RESP TX SCH ×3 (00:30→13:55)
[2016-03-25 06:53] LABS: Basophils # 0.1 10*3/uL (0.0-0.2); Basophils % 0.4 % (0.0-0.8); Eosinophils # 0.3 10*3/uL (0.0-0.87); Eosinophils % 1.6 % (0.00-10.9); Hematocrit 39.6 VOL% (35.7-47.0); Hemoglobin 12.2 GM/DL (12.0-16.0); Immature Granulocytes % 9.3 %; Immature Granulocytes Absolute 1.79 #; Lymphocytes # 4.7 10*3/uL (1.4-4.0); Lymphocytes % 24.3 % (21.3-54.2); Mean Corpuscular HGB Conc 30.8 GM/DL (32-36); Mean Corpuscular Hemoglobin 27 PG (27-34); Mean Corpuscular Volume 88.4 FL (87-102); Mean Platelet Volume 9.3 FL (9.6-12.0); Monocytes # 1.3 10*3/uL (0.11-0.8); Monocytes % 6.8 % (1.7-12.7); Neutrophils # 11.1 10*3/uL (1.4-7.4); Neutrophils % 57.6 % (38.7-73.9); Platelet Count 335 T/CUMM (130-400); Red Blood Count 4.48 MC/CUMM (3.8-5.5); Red Cell Distribution Width 16.5 % (9.3-17.3); White Blood Count 19.2 T/CUMM (4-12)
[2016-03-25 07:16] LABS: Hypochromasia 1+; Lymphocytes 25 % (20-55); Platelet Estimate Adequate; Segmented Neutrophils 69 % (50-85); Total Cells Counted 100
[2016-03-25] MEDS: cefTAZidime 500 MG in SODIUM CHLORIDE 0.9% 100 ML IV SCH ×2 (07:29→14:06)
[2016-03-25] MEDS: CLOTRIMAZOLE 10 MG TROCHE PO SCH ×4 (07:29→18:30)
[2016-03-25] MEDS: predniSONE 20 MG TABLET PO SCH (08:23)
[2016-03-25] MEDS: BENZONATATE 100 MG CAPSULE PO SCH ×2 (08:24→14:45)
[2016-03-25] MEDS: PANTOPRAZOLE 40 MG TABLET PO SCH (08:24)
[2016-03-25] MEDS: SERTRALINE 100 MG TABLET PO SCH (08:24)
[2016-03-25] MEDS: ASPIRIN EC 81 MG TABLET PO SCH (08:24)
[2016-03-25] MEDS: FLUCONAZOLE 200 MG TABLET PO SCH (08:24)
[2016-03-25] MEDS: GABAPENTIN 100 MG CAPSULE PO SCH (08:24)
[2016-03-25] MEDS: LISINOPRIL 5 MG TABLET PO SCH (08:24)
[2016-03-25] MEDS: PHENAZOPYRIDINE 95 MG TABLET PO SCH (08:24)
[2016-03-25] MEDS: CALCIUM (CARBONATE)/VITAMIN D 600 MG-400 UNIT TABLET PO SCH (08:24)
--- NOTE | 2016-03-25 09:38 | Case Mgmt Physician Query Form ---
LONG STAY PHYSICIAN RECERTIFICATION *This form is to be completed for all Medicare patients before they reach day 20 of their hospitalization. Please complete each section as appropriate.* I certify that hospitalization, and continued hospitalization, for this patient is medically necessary as follows: 1) Reasons of either continued hospitalization of the patient for medical treatment or medically required diagnostic study or special or unusual services for cost outlier cases are as follows: 2) Estimated time patient will need to remain in hospital: 3) Plan for Post Hospital Care: ( ) Home with Primary Care Follow up ( ) Home with Home Health Follow up (x ) LTACH/ Acute Care Rehab/ SNF/Prison ( ) Other: If you have any questions, please contact me. Thank you, Kaya Maharaj RN Case Management W [phone] F [phone] C [phone] [email or web address] If you have any questions, please contact me . Thank you, Ary RODRIGUEZ Email: [email or web address]
--- NOTE | 2016-03-25 10:05 | Case Mgmt Physician Query Form ---
TB Signs and Symptoms Screening ([place]) INSTRUCTIONS: To be completed annually on residents/staff with a significant Tuberculin Skin Test (TST) upon admission/hire or a prior significant TST. To be completed on all staff at hire. Please respond to each listed symptom with an (X) in either the "YES" or "NO" box. Do you currently have any of the following symptoms: YES NO ( ) ( x) A cough If yes, is it: ( ) Productive ( ) Non- productive ( ) ( x) Hemoptysis (spitting up blood) ( ) ( x) Chest pains ( ) ( x) Weight Loss ( ) ( x) Fever ( ) (x ) Night Sweats ( ) (x ) Weakness ( ) (x ) Loss of Appetite ( ) (x ) Difficulty Breathing If you answered YES" to any of the above questions, how long have symptoms been present? Comments: If you have any questions, please contact me . Thank you, Ary RODRIGUEZ Email: [email or web address] [facility]
[2016-03-25] MEDS: DESITIN 4OZ/NYSTATIN 15 GRAM MIXTURE PASTE TOP SCH (11:11)
[2016-03-25] MEDS: NYSTATIN POWDER 15 GM BOTTLE TOP SCH (11:11)
--- NOTE | 2016-03-25 11:18 | Discharge Summary ---
Hospital Course - Hospital Course Hospital Course: This patient's 86-year-old female who presents to the hospital with chief complaint of abdominal pain. It is been gradual onset on the day of admission. It radiated to her back it was constant and moderate in severity. 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 It did not appear to perforate freely but there was scattered for crest and debris with it and it. Patient was also found to have urinary tract infection. Patient was originally admitted to the surgery service and we will consult. During the hospitalization she improved fairly quickly from an abdominal standpoint on the Zosyn. Patient at one point became short of breath and required transfer to the CCU. At that time I took over care of the patient. She developed a pneumonia and ARDS type picture picture she didn't require intubation. She did require a nonrebreather for a while. Patient was able to be slowly weaned off oxygen. Patient was able to be transferred out of the unit to the floor. She spent several days on the floor. She's met her maximum benefit of hospitalization arrangements for swing bed placement have been made a she's been transferred to swing bed today - Time spent with patient Time with patient DS: Greater than 30 minutes Diagnosis - Discharge Diagnosis (1) Abdominal pain Status: Resolved (2) UTI (urinary tract infection) Status: Acute (3) Abdominal mass Status: Acute Discharge Plan - Discharge Data Disposition: Disch/Xfer to Snf Condition at Discharge: Stable Discharge Diet: advance to your usual diet Activity: resume usual activities as tolerated - Discharge Medications New Albuterol/Ipratropium Neb [Duoneb] 3 ml RESP TX RT Q4H PRN #0 nebulization solution PRN Reason: Shortness Of Breath/Wheezing guaiFENesin/DM LIQUID [Robitussin Dm] 10 ml PO Q4H PRN #0 udcup PRN Reason: Cough Acetaminophen Tab [Tylenol Tab] 650 mg PO Q6H PRN #0 tablet PRN Reason: Pain Mild (1-3) And/Or Fever Amoxicillin/Clav Tab [Augmentin Tab] 875 mg PO BID #14 tablet Benzonatate [Tessalon] 100 mg PO TID PRN capsule PRN Reason: Cough HYDROcodone/ACETAMIN 10-325 [Duncan 10-325] 1 tablet PO Q4H PRN #30 tablet PRN Reason: Pain Moderate (4-7) LORazepam TAB [Ativan Tab] 0.5 mg PO BID PRN #20 tablet PRN Reason: Anxiety predniSONE TAB [PredniSONE] 20 mg PO DAILY tablet Continue Lisinopril 5 mg PO DAILY Gabapentin Cap/Tab [Neurontin Cap/Tab] 100 mg PO BID Baclofen 10 mg PO BEDTIME Sertraline HCl 100 mg PO DAILY Amitriptyline [Elavil] 50 mg PO BEDTIME Gelatin 1,200 mg PO DAILY Vitamin E 400 units PO BEDTIME Glucosamine/Chondroitin/Vit D3 [Uqpwlain-Ffwcwz-Lde D3 Tab] 800 unit DAILY Saccharomyces Boulardii [Probiotic] 1 capsule PO DAILY Phenazopyridine HCl [Azo Urinary Pain Relief] 1 tablet PO DAILY Om3/Dha/Epa/Cod Liver Oil/A/D3 [Cod Liver Oil Softgel] 1 capsule PO DAILY Multivitamin (Centrum) [Centrum Tab] 1 mg PO DAILY Aspirin [Ecotrin] 1 tablet PO DAILY Omeprazole 20 mg PO BID Calcium Carbonate/Vitamin D3 [Calcium 600 + Vit D Tablet] 600 mg PO DAILY Bisacodyl Tab [Dulcolax Tab] 5 mg PO DAILY PRN PRN Reason: Constipation Cinnamon Bark [Cinnamon] 2 capsule PO DAILY Discontinued Oxycodone HCl [Oxycodone HCl] 10 mg PO Q6-8H Amoxicillin Cap/Tab 500 mg PO TID - Follow Up or Referral - Forms/Instructions Additional Discharge Instructions: Continue O2 supplementation to this patient as needed Exam - Constitutional Vitals: Period Temp Pulse Resp BP Sys/Redmond Pulse Ox Last 24 Hr 96.2 F-98.3 F 52-104 16-25 115-127/54-66 91-100 General appearance: normal weight - Head Head exam: Present: normal inspection - ENT ENT exam: Present: normal exam - Neck Neck exam: Present: normal inspection - Respiratory Respiratory exam: Present: clear to auscultation bilaterally - Cardiovascular Cardiovascular exam: Present: regular rate and rhythm - GI/Abdominal GI/Abdominal exam: Present: normal bowel sounds - Extremities Exam Extremities exam: Present: normal inspection - Back Exam Back exam: Present: normal inspection - Neurological Exam Neurological exam: Present: alert - Psychiatric Psychiatric exam: Present: normal affect - Skin Skin exam: Present: normal color Discharge Results Procedures and tests throughout hospitalization: Pending Orders 03/20/16 11:00 Legionella Pneumophilia Ab Stat 03/26/16 04:00 XR chest 2V Routine Labs on day of discharge: Labs from last 24 hours 03/25/16 03/24/16 06:03 05:31 WBC 19.2 H 20.4 H RBC 4.48 4.48 Hgb 12.2 12.5 Hct 39.6 39.4 MCV 88.4 87.9 MCH 27 28 MCHC 30.8 L 31.7 L RDW 16.5 16.7 Plt Count 335 416 H D MPV 9.3 L 9.3 L Neut % (Auto) 57.6 65.9 Lymph % (Auto) 24.3 14.5 L Caroline % (Auto) 6.8 6.8 Eos % (Auto) 1.6 1.8 Baso % (Auto) 0.4 0.4 Neut # (Auto) 11.1 H 13.5 H Lymph # (Auto) 4.7 H 3.0 Caroline # (Auto) 1.3 H 1.4 H Eos # (Auto) 0.3 0.4 Baso # (Auto) 0.1 0.1 Total Counted 100 100 Immature Gran % 9.3 10.6 Nucleated RBC % 0.0 0.0 Immature Gran # 1.79 2.17 Segmented Neutrophils 69 85 Band Neutrophils 2 Lymphocytes 25 3 L Monocytes 6 8 Myelocytes 2 Nucleated RBCs # 0.00 0.00 Platelet Estimate Adequate Adequate Polychromasia Slight Hypochromasia 1+ Anisocytosis 1+ Macrocytosis 1+ Morphology Comment DS: Provider Date of admission: 03/07/16 13:44 Primary care physician: . No PCP Attending physician on admission: Luis Manuel Mercado III., Consults: 03/13/16 11:14 Consult to Physician [CONS] Routine Comment: pneumonia versus edema Consulting Provider: Modesto Lopez Consult to Specialist Group: Pulmonology When should Consulting Provider be notified: Now Date Notified: 03/13/16 Time Notified: 12:30 Consult Notification Comment: saw on pm 03/19/16 10:56 Consult to Physical Therapy [CONS] Routine Reason for Physical Therapy: Evaluate and Treat 03/22/16 09:28 Consult to Case Mgmt/Social Srvs [CONS] Routine Reason for Case Mgmt/Social Srvs: Discharge Planning Equipment Consult Comment: consider swing bed options with family 03/24/16 10:25 Consult to Physician [CONS] Routine Comment: hoarseness Consulting Provider: Atif Cervantes Person Notified: tricia Date Notified: 03/24/16 Time Notified: 11:02 Discharging clinician: Charles Eaton MD
--- NOTE | 2016-03-25 11:30 | Pulmonology Progress Note ---
Pulmonary - PN: Subj Interval history: Hamilton Ramirez, ANP-BC, GNP-BC, acting as scribe for Dr. Modesto Lopez This is an 86-year-old white female who we saw in initial pulmonary consultation on the night of 03/13/2016. She was seen today along with her daughter. The patient's main problems appear to be: 1. Admission 03/06/2016 for acute abdominal pain that was thought to be an infected duodenal diverticulum. This is resolving. She does have a remaining elevated white blood cell count. 2. Abnormal chest x-ray with progressive hypoxemia. I felt like we were dealing with mild congestive heart failure. Her BNP was elevated. She was started on Lasix 20 IV push 3 times daily. Chest x-rays a little better today ( 03/14/2016) but still abnormal. Her BNP is fallen to a normal level. Her creatinine is increased from 0.8-1.0. I have stopped her Lasix. Chest x-ray shows some scattered infiltrates which are most prominent in both upper lungs. There is no atelectasis associated with this. Today the patient is a better historian. She gave us a history of esophageal stricture. She denies solid dysphasia at the present time. She has chronic daily reflux up into her throat. I think there is a good chance we are dealing with the consequences of aspiration. We could be looking at aspiration pneumonia with superimposed bacterial pneumonia. At this point the patient looks too fragile to electively evaluate with fiberoptic bronchoscopy. She has improved. We will continue her inhalation therapy antibiotics and expectorants. Will take reflux precautions. I have started 20 mg once a day. I am reluctant to go higher in light of the recent abdominal infection. 3. Hypokalemia. Corrected. 4. Past history of high blood pressure, anxiety disorder, recurrent urinary tract infection, arthritis, cholecystectomy, diverticulosis. Also hiatal hernia and gastroesophageal reflux disease and esophageal stricture. There is also a past history of 3 elevated PTH Electrolytes are normal. Creatinine is 1.0. ABGs on 100% oxygen shows a pH of 7.408, PCO2 is 45.9. PO2 is 56.2. Bicarb is 27.4. White count is 17,400. H& H is stable at 12.8/37.6. Platelets 335,000. Natruretic peptide is dropped from 542-170. Microbiology is negative so far. 03/17/2016. This patient has now been made a DO NOT RESUSCITATE. Her chest x- ray shows fairly dense bilateral upper lung infiltrates. Urine cultures have grown E. coli. Fortaz has been started. Levaquin has been stopped. Patient remains on Zosyn for her abdominal infection. All: Cultures were negative. I did not see any blood cultures reported. BNP is 60. ABGs on FiO2 of 100% show a pH of 7.43. PCO2 is 52.1. PO2 is 65.5. Bicarb is 32.1. Electrolytes are normal. White blood cell count is dropped to 16,500 with 89% segs. H&H 11.8/ 36.2. Platelets of 446,000 she has a history of reflux and microaspiration. Of aspiration was a problem I would expect her to be more lower lung findings. I think we are probably dealing with adult respiratory distress syndrome. This may be secondary to sepsis but we need to keep other possibilities in mind. Over the weekend her Solu-Medrol was increased to 40 mg IV push every 8 hours. I agree with this. 03/18/2016. Patient's oxygenation has improved today. She may have aspirated a soft drink and we had to increase her FiO2. Chest x-ray is beginning to show some clearing of the bilateral upper lung alveolar infiltrates with air bronchograms. Electrolytes are close to normal. Sodium is 148. CBC is stable with a white count of 18,300. Most recent natruretic peptide was 60. Patient is definitely more alert and appears stronger today she is still significantly sick and I think we should keep her in CCU a little bit longer. She however looks like she is turning the corner and getting better. There are no positive cultures FiO2 has been lowered to 40% and ABGs show pH 7.53. PCO2 is 43.5. PO2 is 51.1. Bicarb is 35.5. 03/19/2016. Patient's chest x-ray continues to slowly improve. Dense alveolar infiltrates in both upper lungs are gradually resolving. ABGs on FiO2 of 40% shows a pH 7.53. PCO2 43.5. PO2 51.1. Bicarb 35.5. Medicines been reviewed. Labs been reviewed. Patient looks stronger and more alert. I think we should try to keep her sats are 95% or above. This is not a significant CO2 retainer. 03/20/2016. This patient continues to improve on a daily basis. Early on she had a small amount of congestive heart failure which quickly resolved. Underneath this she had severe bilateral upper lung and midlung alveolar infiltrates with air bronchograms. She is an aspirator but I would not expect this pattern with aspiration unless she was in Trendelenburg position. This could have been a bilateral symmetrical pneumonia which is a little bit rare. She however has responded to steroids and antibiotics. She still has some residual infiltrate with air bronchograms in the left upper lung and in the right upper lung she is nearly clear there is some bibasal areas of mild linear atelectasis. I think we should continue her present regimen. I think she is safe to go to the floor. ABGs on FiO2 of 44% shows a pH of 7.44. PCO2 is 47.9. PO2 is 65.3. Bicarb is 30.9. Electrolytes are normal. Creatinine 0.6. BUN is 16. White count is 17,000. Platelets of 551,000. H&H 12.2/39.6 with normal indices there are no positive cultures except urine from 03/06/2016 which grew E. coli. This would bring out one more possibility and that would be adult respiratory distress syndrome secondary to sepsis. As an after thought I am going to check cold agglutinins and Legionella titers. Patient is more alert and stronger each day. Speech therapy evaluated her yesterday and felt like she was safe to eat they has some specific recommendations. They noted as I have she had a past history of esophageal stricture. She denies any solid dysphagia. 03/21/16. The patient has now been moved to the pulmonary floor. She was seen today along with her daughter and Christal Leslie RN. Her CXR continues to improve. She is now on O2 at 5 LPM via NC and is maintaining her O2 sats in the upper 90s. ABGs this morning on an FIO2 of 40% showed a pH of 7.445, PCO2 of 49.4, PO2 of 77.2, bicarb of 33.2, and O2 sat 95.2%. She is awake, alert and conversant. She is pleased with her improvement. Her urine previously grew E.coli despite a less than impressive urinalysis. For the time being, given her remarkable improvement, we should continue her on her present antibiotics. 03/24/2016. Patient was seen along with her daughter. She continues to improve. She has had some hemorrhoidal bleed. See Dr. Bar's note. Her chest x-ray continues to improve and she has only a small amount of residual increased interstitial markings and alveolar filling in both upper lungs. She complains of hoarseness and she complains of a sore tongue. Tongue is a little bit dry and geographic. I did not see any definite Chiqui but I am going to start her on Diflucan and Mycelex troches. I suspect her hoarseness is related to adherent material on her vocal cords. I have asked ENT to see her as her symptoms are quite significant and they are very disturbing to the patient. Electrolytes normal. Creatinine is 0.6. BUNs 15. White count is elevated 20, 400. H&H is 12.5/39.4. Cold agglutinins are negative. She has no positive cultures from any site except early on she had a E. coli urinary tract infection and this appeared to be relatively minor as the colony count was only 20,000 and his urine looked normal. Cultures were obtained on a urinalysis obtained at admission. Therefore this was not hospital-acquired we will try to continue the patient's antibiotics a few more days since we do not know the name of the organism which caused her bilateral upper lung pneumonia. Her steroid dose is down to 20 mg of prednisone a day. 03/25/16. The patient was seen in ENT consultation yesterday by Dr. Cervantes. His note has been reviewed. 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 He would like to see her once she is discharged from swing bed to document clearing. He also noted her larynx was deviated substantially to the left, but noted she did not appear to have any difficulty secondary to this and that it may be exacerbated by her positioning. She has been accepted to [facility] in [place] and will transfer there later on today. From a pulmonary standpoint she is doing very well. Medications have been reviewed. We made no changes today. Labs have been reviewed. White count is 19,200 with 57.6% segs, 24.3% lymphs, and 6.8% monos; H&H 12.2/39.6; PLT count 335,000 Exam (Progress Note) - Constitutional Vitals: Period Temp Pulse Resp BP Sys/Redmond Pulse Ox Last 24 Hr 96.2 F-98.3 F 52-104 16-25 115-127/54-66 91-100 Exam: Chest is clear Heart no gallop Abd is nontender and nondistended; BS positive x 4 Ext with nothing to suggest acute DVT Psych presently oriented x 3 Neuro long tract motor function is intact Plan: The patient has been [facility] and will be transferred later on today. We will sign off. Please reconsult PRN. Results - Labs CBC & BMP: 03/25/16 06:03 03/24/16 05:31
[2016-03-25] MEDS: ENOXAPARIN 40 MG/0.4 ML SYRINGE SUBCUT SCH (14:06)
[2016-03-25] MEDS: CLORAZEPATE 3.75 MG TABLET PO PRN (16:29)
[2016-03-25 16:50] VITALS: BP 110/64
== END 2016-03-25 20:07 | DRG 391 ==
LOC: N.ED 16:54 → N.EDINP 16:54 → N.3E 03-07 00:29 → SUATTDRO 03-07 13:44 → N.CC 03-12 21:02 → N.5E 03-20 16:33
PROVIDERS: ADMIT Surgery; ATTEND Internal Medicine